=== PATIENT | female | born 1985 | race Hispanic/Latino ===

== ENCOUNTER 2017-07-27 07:51 | Emergency (ER) | payer OTHER ==
[2017-07-27] MEDS ORDERED: KETOROLAC 30 MG/ML INJ ONE (08:35)
[2017-07-27] MEDS ORDERED: CLINDAMYCIN 900MG/D5W 900 MG/50 ML BAG IV ONE (08:35)
[2017-07-27] MEDS ORDERED: DEXAMETHASONE 10 MG/ML VIAL ONE (08:35)
[2017-07-27] MEDS ORDERED: ACETAMINOPHEN 500 MG TAB ONE (08:35)
[2017-07-27] MEDS ORDERED: NA CHLORIDE 0.9% 1,000 ML ONE (08:36)
--- NOTE | 2017-07-27 09:48 | EDPHYS ---
Physician Documentation [facility] Name: Mary Napier Age: 32 yrs Sex: Female : 1985 Arrival Date: 07/27/2017 Time: 07:53 Bed 15 Private MD: ED Physician Daryl Young HPI: 07/27 08:35 This 32 yrs old Female presents to ER via Ambulatory with complaints of Fever, wa Headache, Sore Throat. 08:35 The patient reports fever, not measured (subjective). Onset: The symptoms/episode wa began/occurred 3 day(s) ago. Modifying factors: there are no obvious modifying factors. Associated signs and symptoms: Pertinent positives: headache, sore throat, Pertinent negatives: abdominal pain, backache, runny nose, sinus congestion, shortness of breath. 08:36 Severity of symptoms: At their worst the symptoms were moderate in the emergency wa department the symptoms are worse markedly. The patient has not experienced similar symptoms in the past. The patient has not recently seen a physician. 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 - Social history:: The patient lives with family, Smoking status: Patient/guardian denies using tobacco. - Family history:: not pertinent. - Hospitalizations: : No recent hospitalization is reported. ROS: 08:37 Eyes: Negative for injury, pain, redness, and discharge, Neck: Negative for injury, wa pain, and swelling, Cardiovascular: Negative for chest pain, palpitations, and edema, Respiratory: Negative for shortness of breath, cough, wheezing, and pleuritic chest pain, Abdomen/GI: Negative for abdominal pain, nausea, vomiting, diarrhea, and constipation, Back: Negative for injury and pain, : Negative for injury, bleeding, discharge, and swelling, MS/Extremity: Negative for injury and deformity, Skin: Negative for injury, rash, and discoloration. 08:37 Constitutional: Positive for body aches, fever, Negative for weight loss. 08:37 ENT: Positive for sore throat, Negative for nasal discharge, sinus congestion. 08:37 Neuro: Positive for headache, Negative for altered mental status, dizziness, gait disturbance. 08:37 All other systems are negative. Exam: 08:37 Head/Face: Normocephalic, atraumatic. Eyes: Pupils equal round and reactive to light, wa extra-ocular motions intact. Lids and lashes normal. Conjunctiva and sclera are non-icteric and not injected. Cornea within normal limits. Periorbital areas with no swelling, redness, or edema. Neck: Trachea midline, no thyromegaly or masses palpated, and no cervical lymphadenopathy. Supple, full range of motion without nuchal rigidity, or vertebral point tenderness. No Meningismus. Chest/axilla: Normal chest wall appearance and motion. Nontender with no deformity. No lesions are appreciated. Cardiovascular: Regular rate and rhythm with a normal S1 and S2. No gallops, murmurs, or rubs. Normal PMI, no JVD. No pulse deficits. Respiratory: Lungs have equal breath sounds bilaterally, clear to auscultation and percussion. No rales, rhonchi or wheezes noted. No increased work of breathing, no retractions or nasal flaring. Abdomen/GI: Soft, non-tender, with normal bowel sounds. No distension or tympany. No guarding or rebound. No evidence of tenderness throughout. Back: No spinal tenderness. No costovertebral tenderness. Full range of motion. Skin: Warm, dry with normal turgor. Normal color with no rashes, no lesions, and no evidence of cellulitis. MS/ Extremity: Pulses equal, no cyanosis. Neurovascular intact. Full, normal range of motion. 08:37 ENT: Posterior pharynx: swelling, erythema, exudate, that is moderate. 08:37 Neuro: Orientation: is normal, Cranial nerves: grossly normal, Motor: is normal, Gait: is steady. Vital Signs: 08:21 BP 129 / 81; Pulse 110; Resp 18 S; Temp 100.7(O); Pulse Ox 99% on R/A; Pain 10/10; iw 09:59 Pulse 96; Resp 18; Temp 99.9(O); Pulse Ox 99% on R/A; em MDM: 08:10 Patient medically screened. wa 08:42 Differential diagnosis: viral Infection, bacterial infection. Data reviewed: vital wa signs, nurses notes. 08:42 Special discussion: will check labs, treat pain and give IV decadron and abx. co 09:45 Test interpretation: by ED physician or midlevel provider:. wa 09:46 Response to treatment: the patient's symptoms have markedly improved after treatment. co 07/27 08:21 Order name: Flu; Complete Time: 09:23 co 07/27 08:21 Order name: Strep; Complete Time: 09:23 co 07/27 09:14 Order name: Throat Culture EDIL 07/27 10:01 Order name: Urine Microscopic Only em 07/27 10:12 Order name: Urine Dipstick--Ancillary (enter results) ag 07/27 10:12 Order name: Urine --Ancillary (enter results) ag 07/27 08:21 Order name: IV Saline Lock; Complete Time: 09:08 co 07/27 08:21 Order name: Urine Dipstick-Ancillary (obtain specimen); Complete Time: 10:00 co 07/27 08:21 Order name: Urine Test (obtain specimen); Complete Time: 10:00 co Administered Medications: 08:53 Drug: Decadron - Dexamethasone 10 mg Route: IVP; Site: right antecubital; iw 09:21 Follow up: Response: No adverse reaction em 08:53 Drug: TORadol 30 mg Route: IVP; Site: right antecubital; iw 10:00 Follow up: Response: No adverse reaction em 09:08 Drug: Clindamycin 900 mg Route: IVPB; Infused Over: 30 mins; Site: right antecubital; em 09:46 Follow up: IV Status: Completed infusion; IV Intake: 100ml em 09:09 Drug: NS 0.9% 1000 ml Route: IV; Rate: 1 bolus; Site: right antecubital; em 10:00 Follow up: IV Status: Completed infusion; IV Intake: 1000ml em 09:09 Drug: Tylenol 1000 mg Route: PO; em 10:00 Follow up: Response: No adverse reaction; Temperature is decreased em Disposition: 07/27/17 09:48 Discharged to Home. Impression: Acute Pharygitis, Acute Tonsillitis. - Condition is Stable. - Discharge Instructions: Tonsillitis, Pharyngitis, [id number]. - Prescriptions for Augmentin 875- 125 mg Oral Tablet - take 1 tablet by ORAL route every 12 hours for 7 days; 20 tablet. Ibuprofen 600 mg Oral Tablet - take 1 tablet by ORAL route every 8 hours As needed take with food; 30 tablet. Prednisone 20 mg Oral Tablet - take 2 tablets by ORAL route once daily for 4 days; 8 tablet. - Medication Reconciliation Form, Thank You Letter, Antibiotic Education, Prescription Opioid Use form. - Follow up: Private Physician; When: 2 - 3 days; Reason: Recheck today's complaints. - Problem is new. - Symptoms have improved. - Notes: taek medicines as prescribed. return here or see your doctor immediately for rapidly worsening pain and or difficulty swallowing and or breathing Signatures: Dispatcher [employer] EDTravis Roche LVN LVN em Williams, Irene, RN RN iw Appiah, William, MD MD wa Corrections: (The following items were deleted from the chart) 10:18 09:48 07/27/2017 09:48 Discharged to Home. Impression: Acute Pharygitis; Acute em Tonsillitis. Condition is Stable. Forms are Medication Reconciliation Form, Thank You Letter, Antibiotic Education, Prescription Opioid Use. Follow up: Private Physician; When: 2 - 3 days; Reason: Recheck today's complaints. Problem is new. Symptoms have improved. wa
--- NOTE | 2017-07-27 09:48 | ER ---
Nurse's Notes [facility] Name: Mary Napier Age: 32 yrs Sex: Female : 1985 Arrival Date: 07/27/2017 Time: 07:53 Bed 15 Private MD: Diagnosis: Acute Pharygitis;Acute Tonsillitis Presentation: 07/27 08:17 Presenting complaint: Patient states: pt c/o of sore throat, headache,fever, chills, iw states throat feels like it's closing up. Transition of care: patient was not received from another setting of care. Onset of symptoms was July 27, 2017. 08:17 Method Of Arrival: Ambulatory iw 08:20 Initial Sepsis Screen: Does the patient meet any 2 criteria? No. Patient's initial iw sepsis screen is negative. Does the patient have a suspected source of infection? No. Patient's initial sepsis screen is negative. Care prior to arrival: None. 08:20 Acuity: SOFIA 3 iw Triage Assessment: 10:12 General: Appears in no apparent distress. uncomfortable. General: Behavior is em cooperative. Pain: Pain currently is 10 out of 10 on a pain scale. Pain began 2-3 days ago. Pain: Also complains of no other associated symptoms. 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 - Social history:: The patient lives with family, Smoking status: Patient/guardian denies using tobacco. - Family history:: not pertinent. - Hospitalizations: : No recent hospitalization is reported. Screenin:21 Abuse screen: Denies threats or abuse. Denies injuries from another. Nutritional iw screening: No deficits noted. Tuberculosis screening: No symptoms or risk factors identified. 08:30 Fall Risk None identified. em Assessment: 08:10 General: Appears in no apparent distress. uncomfortable, Behavior is cooperative, em Reports sore throat and fever for 2 days, denies N/V/D. Pain: Complains of pain in throat. Neuro: Level of Consciousness is awake, alert, obeys commands, Oriented to person, place, time, situation. Cardiovascular: Capillary refill < 3 seconds Patient's skin is warm and dry. Respiratory: Airway is patent Respiratory effort is even, unlabored, Respiratory pattern is regular, symmetrical, Breath sounds are clear bilaterally. GI: Abdomen is round. : No signs and/or symptoms were reported regarding the genitourinary system. Denies burning with urination. EENT: Oral mucosa is moist. Throat is clear is reddened. Derm: Skin is intact, Skin is pink, warm \T\ dry. Musculoskeletal: Range of motion: intact in all extremities. Vital Signs: 08:21 BP 129 / 81; Pulse 110; Resp 18 S; Temp 100.7(O); Pulse Ox 99% on R/A; Pain 10/10; iw 09:59 Pulse 96; Resp 18; Temp 99.9(O); Pulse Ox 99% on R/A; em ED Course: 07:53 Patient arrived in ED. rg4 08:10 Daryl Young MD is Attending Physician. wa 08:17 Julianna Peterson RN is Primary Nurse. iw 08:21 Triage completed. iw 08:21 Patient has correct armband on for positive identification. iw 08:30 Arm band placed on. em 09:00 Initial lab(s) drawn, by me, sent to lab. Inserted saline lock: 20 gauge in right em antecubital area, using aseptic technique. Blood collected. 10:13 No provider procedures requiring assistance completed. em 10:17 IV discontinued, intact, bleeding controlled, No redness/swelling at site. Pressure em dressing applied. Administered Medications: 08:53 Drug: Decadron - Dexamethasone 10 mg Route: IVP; Site: right antecubital; iw 09:21 Follow up: Response: No adverse reaction em 08:53 Drug: TORadol 30 mg Route: IVP; Site: right antecubital; iw 10:00 Follow up: Response: No adverse reaction em 09:08 Drug: Clindamycin 900 mg Route: IVPB; Infused Over: 30 mins; Site: right antecubital; em 09:46 Follow up: IV Status: Completed infusion; IV Intake: 100ml em 09: Drug: NS 0.9% 1000 ml Route: IV; Rate: 1 bolus; Site: right antecubital; em 10:00 Follow up: IV Status: Completed infusion; IV Intake: 1000ml em 09:09 Drug: Tylenol 1000 mg Route: PO; em 10:00 Follow up: Response: No adverse reaction; Temperature is decreased em Intake: 09:46 IV: 100ml; Total: 100ml. em 10:00 IV: 1000ml; Total: 1100ml. em Outcome: 09:48 Discharge ordered by . wa 10:17 Discharged to home ambulatory. em 10:17 Condition: good 10:17 Discharge instructions given to patient, Instructed on discharge instructions, follow up and referral plans. medication usage, Demonstrated understanding of instructions, follow-up care, medications, Prescriptions given X 3. 10:18 Patient left the ED. em Signatures: Travis Quintana, DEBBIE SLIP COVER OPERATOR em Julianna Peterson, Zoila Charles RN rg4 Daryl Young MD MD wa
[2017-07-27 10:40] LABS: Urine Blood TRACE (NEG); Urine Glucose NEGATIVE (NEG); Urine Protein NEGATIVE (NEG); Urine Specific Gravity <1.005 (1.005-1.030); Urine pH 5.5 (5.0-7.0)
[2017-07-27 10:54] LABS: Urine Bacteria >50 /HPF (<20); Urine Culture Reflex Order NOT NEEDED; Urine RBC <5 /HPF (NONE SEEN)
== END 2017-07-27 10:18 | disposition home or self-care (01) ==
LOC: ER 07:51
DX: J03.90 Acute tonsillitis, unspecified (principal); R51 Headache
CPT/HCPCS: 81003; 81015; 81025; 87070; 87081; 87804; 96361; 96365; 96375; 99284; J1100; J7030

== ENCOUNTER 2017-08-04 13:05 | Emergency (ER) | payer OTHER ==
[2017-08-04] MEDS ORDERED: METHYLPREDNISOLONE 125 MG INJ ONE (13:38)
[2017-08-04] MEDS ORDERED: FAMOTIDINE 20 MG/2 ML VIAL IV ONE (13:39)
[2017-08-04] MEDS ORDERED: DIPHENHYDRAMINE 50 MG/ML VIAL ONE (13:39)
[2017-08-04] MEDS ORDERED: NA CHLORIDE 0.9% 1,000 ML ONE (13:39)
[2017-08-04 14:48] LABS: BUN Blood Urea Nitrogen 6 mg/dL (6-20); Glucose Level 115 mg/dL (65-120)
[2017-08-04 14:53] LABS: Bicarbonate 26 mEq/L (21-31); Sodium Level 137 mEq/L (135-145)
[2017-08-04 15:00] LABS: Potassium 2.9 mEq/L (3.6-5.0)
--- NOTE | 2017-08-04 15:16 | EDPHYS ---
Physician Documentation [facility] Name: Mary Napier Age: 32 yrs Sex: Female : 1985 Arrival Date: 08/04/2017 Time: 13:07 Bed 28 Private MD: None, None ED Physician Suman Hightower HPI: 08/04 13:34 This 32 yrs old Female presents to ER via Ambulatory with complaints of kb Allergic Reaction. 13:34 The patient presents with itching, rash, that is diffuse, swollen ears. Onset: The kb symptoms/episode began/occurred this morning. Associated signs and symptoms: Pertinent positives: rash, swelling, Pertinent negatives: abdominal pain, Altered mental status chest pain, dysphagia, fever, headache, hives, Light headed nausea, shortness of breath, Syncope vomiting. Possible causes: The patient has no known obvious cause for the symptoms. At home the patient or guardian has treated the symptoms with nothing. Severity of symptoms: At their worst the symptoms were moderate in the emergency department the symptoms are unchanged. The patient has not experienced similar symptoms in the past. The patient has not recently seen a physician. Pt states she woke up with diffuse itching and rash with swelling and redness to ears. States she was on amoxicillin and prednisone for tonsillitis last week. Last dose of amoxicillin was 2 days ago. Has had diarrhea as well since starting the medication. States she hasn't had anything new that would cause the reaction. . 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 - Social history:: Smoking status: Patient/guardian denies using tobacco. ROS: 13:34 Constitutional: Negative for fever, chills, and weight loss, Cardiovascular: Negative kb for chest pain, palpitations, and edema, Respiratory: Negative for shortness of breath, cough, wheezing, and pleuritic chest pain, Abdomen/GI: Negative for abdominal pain, nausea, vomiting, diarrhea, and constipation, Back: Negative for injury and pain, : Negative for injury, bleeding, discharge, and swelling, MS/Extremity: Negative for injury and deformity, Neuro: Negative for headache, weakness, numbness, tingling, and seizure. 13:34 Skin: Positive for rash, diffusely. Exam: 13:34 Constitutional: This is a well developed, well nourished patient who is awake, alert, kb and in no acute distress. Head/Face: Normocephalic, atraumatic. Chest/axilla: Normal chest wall appearance and motion. Nontender with no deformity. No lesions are appreciated. Cardiovascular: Regular rate and rhythm with a normal S1 and S2. No gallops, murmurs, or rubs. Normal PMI, no JVD. No pulse deficits. Respiratory: Lungs have equal breath sounds bilaterally, clear to auscultation and percussion. No rales, rhonchi or wheezes noted. No increased work of breathing, no retractions or nasal flaring. Abdomen/GI: Soft, non-tender, with normal bowel sounds. No distension or tympany. No guarding or rebound. No evidence of tenderness throughout. MS/ Extremity: Pulses equal, no cyanosis. Neurovascular intact. Full, normal range of motion. Neuro: Awake and alert, GCS 15, oriented to person, place, time, and situation. Cranial nerves II-XII grossly intact. Motor strength 5/5 in all extremities. Sensory grossly intact. Cerebellar exam normal. Normal gait. 13:34 Skin: Appearance: normal except for affected area, Color: erythematous, swelling, noted on the right ear and left ear, that are mild, rash can be described as macular, papular, and is diffusely located. Vital Signs: 13:12 BP 137 / 86; Pulse 101; Resp 20; Temp 97.7; Pulse Ox 100% on R/A; Weight 91.63 kg; aj Height 5 ft. 4 in. (162.56 cm); 14:10 BP 122 / 75; Pulse 85; Resp 16; Pulse Ox 100% on R/A; kr2 15:25 BP 128 / 76; Pulse 84; Resp 17; Pulse Ox 100% on R/A; kr2 13:12 Body Mass Index 34.67 (91.63 kg, 162.56 cm) aj MDM: 13:14 Patient medically screened. kb 13:38 Data reviewed: vital signs, nurses notes. Data interpreted: Pulse oximetry: on room air kb is 100 %. Interpretation: normal. 15:14 Counseling: I had a detailed discussion with the patient and/or guardian regarding: the kb historical points, exam findings, and any diagnostic results supporting the discharge/admit diagnosis, lab results, the need for outpatient follow up, a family practitioner, to return to the emergency department if symptoms worsen or persist or if there are any questions or concerns that arise at home. 08/04 13:34 Order name: [place] Screen Profile; Complete Time: 14:39 kb 08/04 13:34 Order name: Basic Metabolic Panel; Complete Time: 15:02 kb 08/04 13:34 Order name: IV Start; Complete Time: 14:09 kb Administered Medications: 14:08 Drug: NS 0.9% 1000 ml Route: IV; Rate: 1000 ml; Site: right hand; kr2 15:32 Follow up: Response: No adverse reaction; IV Status: Completed infusion kr2 14:08 Drug: SOLU-Medrol 125 mg Route: IVP; Site: right hand; kr2 15:07 Follow up: Response: No adverse reaction kr2 14:08 Drug: Pepcid 20 mg Route: IVP; Site: right hand; kr2 15:07 Follow up: Response: No adverse reaction kr2 14:08 Drug: Benadryl 12.5 mg Route: IVP; Site: right hand; kr2 15:07 Follow up: Response: No adverse reaction kr2 15:19 Drug: Potassium Effervescent Tablet 50 mEq Route: PO; kr2 15:32 Follow up: Response: No adverse reaction kr2 Disposition: 08/04/17 15:15 Discharged to Home. Impression: Rash and other nonspecific skin eruption, Hypokalemia, Diarrhea, unspecified. - Condition is Stable. - Discharge Instructions: Food Choices to Help Relieve Diarrhea, Adult, Diarrhea, Vkof-lw-Ntyu, Rash, Rhbv-ca-Tamr. - Prescriptions for Pepcid 20 mg Oral Tablet - take 1 tablet by ORAL route every 12 hours for 5 days; 10 tablet. Prednisone 20 mg Oral Tablet - take 1 tablet by ORAL route once daily for 5 days; 5 tablet. - Medication Reconciliation Form, Thank You Letter, Antibiotic Education, Prescription Opioid Use form. - Follow up: Emergency Department; When: As needed; Reason: Worsening of condition. Follow up: Private Physician; When: 2 - 3 days; Reason: Recheck today's complaints, Continuance of care, Re-evaluation by your physician. Addendum: 08/07/2017 08:48 Co-signature as Attending Physician, Suman Hightower MD I agree with the assessment and c scott plan of care. Signatures: Dispatcher [employer] EDMS Tenisha Reddy, CHIEF LENDING OFFICER-C CHIEF LENDING OFFICER-Samantha Rea, RN RN Suman Baca MD MD cha Reaves, Karey, RN RN kr2 Corrections: (The following items were deleted from the chart) 08/04 15:15 15:15 08/04/2017 15:15 Discharged to Home. Impression: Rash and other nonspecific skin kb eruption; Hypokalemia. Condition is Stable. Forms are Medication Reconciliation Form, Thank You Letter, Antibiotic Education, Prescription Opioid Use. Follow up: Emergency Department; When: As needed; Reason: Worsening of condition. Follow up: Private Physician; When: 2 - 3 days; Reason: Recheck today's complaints, Continuance of care, Re-evaluation by your physician. kb 15:34 15:15 08/04/2017 15:15 Discharged to Home. Impression: Rash and other nonspecific skin kr2 eruption; Hypokalemia; Diarrhea, unspecified. Condition is Stable. Forms are Medication Reconciliation Form, Thank You Letter, Antibiotic Education, Prescription Opioid Use. Follow up: Emergency Department; When: As needed; Reason: Worsening of condition. Follow up: Private Physician; When: 2 - 3 days; Reason: Recheck today's complaints, Continuance of care, Re-evaluation by your physician. kb
--- NOTE | 2017-08-04 15:16 | ER ---
Nurse's Notes [facility] Name: Mary Napier Age: 32 yrs Sex: Female : 1985 Arrival Date: 08/04/2017 Time: 13:07 Bed 28 Private MD: None, None Diagnosis: Rash and other nonspecific skin eruption;Hypokalemia;Diarrhea, unspecified Presentation: 08/04 13:10 Presenting complaint: Patient states: Woke up this AM with systemic rash. Patient aj completed ABX for tonsillitis 2 days ago. Patient also reports swelling to ears. Transition of care: patient was not received from another setting of care. Onset: The symptoms/episode began/occurred acutely. Anaphylaxis evaluation, no signs or symptoms of anaphylaxis were noted. Onset of symptoms was August 04, 2017. Initial Sepsis Screen: Does the patient meet any 2 criteria? No. Patient's initial sepsis screen is negative. Does the patient have a suspected source of infection? No. Patient's initial sepsis screen is negative. Care prior to arrival: None. 13:10 Method Of Arrival: Ambulatory 13:10 Acuity: SOFIA 2 Triage Assessment: 13:12 General: Appears in no apparent distress. comfortable, Behavior is calm, cooperative, aj appropriate for age. Pain: Denies pain. Neuro: Level of Consciousness is awake, alert, obeys commands, Oriented to person, place, time, situation, Appropriate for age. Respiratory: Airway is patent Respiratory effort is even, unlabored, Respiratory pattern is regular, symmetrical. Derm: Skin is intact, is healthy with good turgor, Skin is pink, warm \T\ dry. normal, Rash noted that is itchy, red, on face, right ear, left ear, chest, right arm, left arm, right leg and left leg. 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 - Social history:: Smoking status: Patient/guardian denies using tobacco. Screenin:30 Abuse screen: Denies threats or abuse. Denies injuries from another. Nutritional kr2 screening: No deficits noted. Tuberculosis screening: No symptoms or risk factors identified. Fall Risk None identified. Assessment: 13:31 General: Appears in no apparent distress. uncomfortable, well groomed, well developed, kr2 well nourished, Behavior is calm, cooperative, appropriate for age. Pain: Complains of pain in ears Pain does not radiate. Pain currently is 5 out of 10 on a pain scale. Quality of pain is described as tender, Pain began suddenly, Is continuous, Alleviated by nothing. Aggravated by touch. Neuro: Level of Consciousness is awake, alert, obeys commands, Oriented to person, place, time, situation, Appropriate for age. Cardiovascular: Heart tones S1 S2 Capillary refill < 3 seconds in bilateral fingers Patient's skin is warm and dry. Respiratory: Airway is patent Respiratory effort is even, unlabored, Respiratory pattern is regular, symmetrical, Breath sounds are clear bilaterally. Denies shortness of breath. GI: Abdomen is flat, non-distended. : No signs and/or symptoms were reported regarding the genitourinary system. EENT: Nares are clear bilaterally Oral mucosa is moist. Throat is clear. Derm: Skin is intact, is healthy with good turgor, Rash noted that is itchy, red, raised. Musculoskeletal: Circulation, motion, and sensation intact. Range of motion: intact in all extremities. 14:30 Reassessment: Patient appears in no apparent distress at this time. Patient and/or kr2 family updated on plan of care and expected duration. Pain level reassessed. Patient is alert, oriented x 3, equal unlabored respirations, skin warm/dry/pink. Patient denies pain at this time. 15:32 Reassessment: Patient appears in no apparent distress at this time. Patient and/or kr2 family updated on plan of care and expected duration. Pain level reassessed. Patient is alert, oriented x 3, equal unlabored respirations, skin warm/dry/pink. States itching has decreased. Rash remains Patient denies pain at this time. Vital Signs: 13:12 BP 137 / 86; Pulse 101; Resp 20; Temp 97.7; Pulse Ox 100% on R/A; Weight 91.63 kg; aj Height 5 ft. 4 in. (162.56 cm); 14:10 BP 122 / 75; Pulse 85; Resp 16; Pulse Ox 100% on R/A; kr2 15:25 BP 128 / 76; Pulse 84; Resp 17; Pulse Ox 100% on R/A; kr2 13:12 Body Mass Index 34.67 (91.63 kg, 162.56 cm) aj ED Course: 13:07 Patient arrived in ED. mr 13:07 None, None is Private Physician. mr 13:12 Triage completed. aj 13:12 Arm band placed on left wrist. Patient placed in an exam room. aj 13:14 Tenisha Reddy FNP-C is [facility]. kb 13:14 Suman Hightower MD is Attending Physician. kb 13:25 Torri Steele RN is Primary Nurse. kr2 13:30 Patient has correct armband on for positive identification. Placed in gown. Bed in low kr2 position. Call light in reach. Side rails up X 1. Pulse ox on. NIBP on. Door closed. Warm blanket given. Head of bed Elevated. 14:00 Missed attempt(s): 24 gauge in right forearm. Bleeding controlled, band aid applied, kr2 catheter tip intact. 14:02 Missed attempt(s): 24 gauge in left antecubital area. kr2 14:05 Inserted saline lock: 24 gauge in right hand, using aseptic technique. Blood collected. kr2 15:33 No provider procedures requiring assistance completed. IV discontinued, intact, kr2 bleeding controlled, No redness/swelling at site. Pressure dressing applied. Administered Medications: 14:08 Drug: NS 0.9% 1000 ml Route: IV; Rate: 1000 ml; Site: right hand; kr2 15:32 Follow up: Response: No adverse reaction; IV Status: Completed infusion kr2 14:08 Drug: SOLU-Medrol 125 mg Route: IVP; Site: right hand; kr2 15:07 Follow up: Response: No adverse reaction kr2 14:08 Drug: Pepcid 20 mg Route: IVP; Site: right hand; kr2 15:07 Follow up: Response: No adverse reaction kr2 14:08 Drug: Benadryl 12.5 mg Route: IVP; Site: right hand; kr2 15:07 Follow up: Response: No adverse reaction kr2 15:19 Drug: Potassium Effervescent Tablet 50 mEq Route: PO; kr2 15:32 Follow up: Response: No adverse reaction kr2 Outcome: 15:15 Discharge ordered by . kb 15:33 Discharged to home ambulatory. kr2 15:33 Condition: improved 15:33 Discharge instructions given to patient, Instructed on discharge instructions, follow up and referral plans. Demonstrated understanding of instructions, follow-up care, medications, Prescriptions given X 1. 15:34 Patient left the ED. kr2 Signatures: Tenisha Reddy, HAT DESIGNER-C HAT DESIGNER-Samantha Rea RN RN aj Rivera, Maria mr Reaves, Karey, RN RN kr2
[2017-08-04] MEDS ORDERED: POTASSIUM 25 MEQ EFFERV TAB ONE (15:17)
== END 2017-08-04 15:34 | disposition home or self-care (01) ==
LOC: ER 13:05
DX: E87.6 Hypokalemia (principal); R19.7 Diarrhea, unspecified
CPT/HCPCS: 36415; 80048; 86308; 96361; 96374; 96375; 99284; J2930; J7030

== ENCOUNTER 2017-08-06 11:16 | Emergency (ER) | payer OTHER ==
[2017-08-06] MEDS ORDERED: DIPHENHYDRAMINE 50 MG/ML VIAL ONE (11:37)
[2017-08-06] MEDS ORDERED: DEXAMETHASONE 10 MG/ML VIAL ONE (11:37)
[2017-08-06] MEDS ORDERED: NA CHLORIDE 0.9% 1,000 ML ONE (11:38)
[2017-08-06] MEDS ORDERED: EPINEPHRINE/PF 1 MG/ML AMP ONE ×2 (11:39→12:59)
[2017-08-06] MEDS ORDERED: IPRATROPIUM BROM 0.5MG/2.5ML ONE (11:48)
[2017-08-06] MEDS ORDERED: ALBUTEROL 2.5 MG/3 ML NEB SOL ONE (11:48)
[2017-08-06 12:01] LABS: Potassium 3.6 mEq/L (3.6-5.0)
--- NOTE | 2017-08-06 14:38 | ER ---
Nurse's Notes [facility] Name: Mary Napier Age: 32 yrs Sex: Female : 1985 Arrival Date: 08/06/2017 Time: 11:20 Bed 4 Private MD: Diagnosis: Allergy status, other than to drugs and biological substances-unknown cause;Rash and other nonspecific skin eruption Presentation: 08/06 11:23 Presenting complaint: Patient states: I have a really bad rash since Monday and its la1 getting worse, I feel SOB and like I am going to pass out. Something is not right. Transition of care: patient was not received from another setting of care. Onset of symptoms was August 06, 2017. Initial Sepsis Screen: Does the patient meet any 2 criteria? No. Patient's initial sepsis screen is negative. Does the patient have a suspected source of infection? No. Patient's initial sepsis screen is negative. Care prior to arrival: None. 11:23 Method Of Arrival: Ambulatory la1 11:23 Acuity: SOFIA 2 la1 Historical: - Allergies: 11:24 NKA; la1 - PMHx: 11:24 None; la1 - Immunization history:: Adult Immunizations up to date. - Social history:: Smoking status: Patient/guardian denies using tobacco. Screenin:40 Abuse screen: Denies threats or abuse. Denies injuries from another. Nutritional sv screening: No deficits noted. Tuberculosis screening: No symptoms or risk factors identified. Fall Risk None identified. Assessment: 11:40 General: Appears uncomfortable, well developed, Behavior is calm, cooperative, sv appropriate for age, drowsy. Pain: Denies pain. Neuro: Level of Consciousness is obeys commands, lethargic, Oriented to person, place, time, situation. Cardiovascular: Patient's skin is warm and dry. Respiratory: Airway is patent Respiratory effort is even, unlabored, Respiratory pattern is regular, symmetrical. Derm: Skin is normal, Rash noted that is itchy, red, raised, urticaria, on back, chest, abdomen, pelvis, right arm, left arm, right leg and left leg. Musculoskeletal: No signs and/or symptoms reported regarding the musculoskeletal system. 12:45 Reassessment: Patient appears in no apparent distress at this time. No changes from sv previously documented assessment. Patient and/or family updated on plan of care and expected duration. Pain level reassessed. Patient is alert, oriented x 3, equal unlabored respirations, skin warm/dry/pink. 13:04 Reassessment: Patient appears in no apparent distress at this time. No changes from sv previously documented assessment. Patient and/or family updated on plan of care and expected duration. Pain level reassessed. Patient is alert, oriented x 3, equal unlabored respirations, skin warm/dry/pink. 13:34 Reassessment: Patient appears in no apparent distress at this time. Patient and/or sv family updated on plan of care and expected duration. Pain level reassessed. Patient is alert, oriented x 3, equal unlabored respirations, skin warm/dry/pink. Pt states that the itchy has improved some. Patient states symptoms have improved. 14:46 Reassessment: Patient appears in no apparent distress at this time. Patient and/or sv family updated on plan of care and expected duration. Pain level reassessed. Patient is alert, oriented x 3, equal unlabored respirations, skin warm/dry/pink. Pt stated that her mother is coming to take her home. Pt to be discharged once she is here. 15:13 Reassessment: Patient appears in no apparent distress at this time. Patient and/or sv family updated on plan of care and expected duration. Pain level reassessed. Patient is alert, oriented x 3, equal unlabored respirations, skin warm/dry/pink. Patient states symptoms have improved. Vital Signs: 11:24 BP 99 / 63; Pulse 81; Resp 16; Temp 97.5; Pulse Ox 100% on R/A; Weight 91.63 kg; Height la1 5 ft. 4 in. (162.56 cm); 12:30 BP 121 / 70; Pulse 85 MON; Resp 16; Temp 98.1(O); Pulse Ox 100% on R/A; sv 13:33 BP 117 / 63; Pulse 92 MON; Resp 16; Pulse Ox 100% on R/A; sv 14:36 BP 108 / 61; Pulse 81; Resp 16; Pulse Ox 99% ; sv 11:24 Body Mass Index 34.67 (91.63 kg, 162.56 cm) la1 12:30 Sinus Rhythm sv 13:33 Sinus Rhythm sv ED Course: 11:20 Patient arrived in ED. sb2 11:24 Triage completed. la1 11:24 Arm band placed on right wrist. la1 11:26 Ten[facility] Red[facility]NP-C [facility]. kb 11:26 Daryl Young MD is Attending Physician. kb 11:38 Inserted saline lock: 22 gauge in left antecubital area, using aseptic technique. Blood iw collected. 11:40 Patient has correct armband on for positive identification. Placed in gown. Bed in low sv position. Call light in reach. Side rails up X2. rn corrections on. Pulse ox on. NIBP on. Door closed. Warm blanket given. Head of bed elevated. 11:51 Virginie Owens, RN is Primary Nurse. sv 15:14 No provider procedures requiring assistance completed. IV discontinued, intact, sv bleeding controlled, No redness/swelling at site. Pressure dressing applied. Administered Medications: 11:45 Drug: NS 0.9% 1000 ml Route: IV; Rate: 1000 ml; Site: left antecubital; sv 13:04 Follow up: Response: No adverse reaction; IV Status: Completed infusion; IV Intake: sv 1000ml 11:45 Drug: EPINEPHrine 1mg/mL 1:1,000 0.3 ml Route: Sub-Q; Site: left upper arm; sv 12:00 Follow up: Response: No adverse reaction sv 11:45 Drug: Benadryl 12.5 mg Route: IVP; Site: left antecubital; sv 12:00 Follow up: Response: No adverse reaction sv 11:47 Drug: Decadron - Dexamethasone 10 mg Route: IVP; Site: left antecubital; sv 12:00 Follow up: Response: No adverse reaction sv 11:51 Drug: Albuterol 2.5 mg Route: Inhalation; sg 11:51 Drug: AtroVENT Aerosol 0.5 mg Route: Inhalation; sg 13:00 Drug: EPINEPHrine 1mg/mL 1:1,000 0.3 ml Route: Sub-Q; Site: right upper arm; sv 13:34 Follow up: Response: No adverse reaction sv Intake: 13:04 IV: 1000ml; Total: 1000ml. sv Outcome: 14:37 Discharge ordered by . kb 15:14 Discharged to home ambulatory, with family, Pt's mother here to drive her home. Mother sv stated that she was driving her. 15:14 Condition: stable 15:14 Discharge instructions given to patient, Instructed on discharge instructions, follow up and referral plans. Demonstrated understanding of instructions, follow-up care. 15:14 Patient left the ED. sv Signatures: Tenisha Reddy, TAJ-C TAJ-Virginie Copeland, RN Arsalan Goodman RN RN sg Williams, Irene, RN RN iw Attema, Lee, RN RN laAlice Cruz
--- NOTE | 2017-08-06 14:38 | EDPHYS ---
Physician Documentation [facility] Name: Mary Napier Age: 32 yrs Sex: Female : 1985 Arrival Date: 08/06/2017 Time: 11:20 Bed 4 Private MD: ED Physician Daryl Young HPI: 08/06 11:45 This 32 yrs old Female presents to ER via Ambulatory with complaints of Rash. kb 11:45 The patient's rash thought to be caused by an unknown cause. The rash is located on the kb body diffusely. The rash can be described as diffuse, macular, papular. Onset: The symptoms/episode began/occurred 2 day(s) ago, and became worse this morning. Associated signs and symptoms: Pertinent positives: itching, Pertinent negatives: burning sensation, difficulty breathing, fever, nausea, Pain swelling of lips, swelling of throat, swelling of tongue, vomiting, wheezing. Severity of symptoms: At their worst the symptoms were moderate in the emergency department the symptoms are unchanged. The patient has not experienced similar symptoms in the past. The patient has been recently seen at the [facility] Emergency Department, for similar complaints labs were performed, 2 days ago. Historical: - Allergies: 11:24 NKA; la1 - PMHx: 11:24 None; la1 - Immunization history:: Adult Immunizations up to date. - Social history:: Smoking status: Patient/guardian denies using tobacco. ROS: 11:48 Constitutional: Negative for fever, chills, and weight loss, Cardiovascular: Negative kb for chest pain, palpitations, and edema, Respiratory: Negative for shortness of breath, cough, wheezing, and pleuritic chest pain, Abdomen/GI: Negative for abdominal pain, nausea, vomiting, diarrhea, and constipation, Back: Negative for injury and pain, : Negative for injury, bleeding, discharge, and swelling, MS/Extremity: Negative for injury and deformity, Neuro: Negative for headache, weakness, numbness, tingling, and seizure. 11:48 Skin: Positive for rash, diffusely. Exam: 11:48 Constitutional: This is a well developed, well nourished patient who is awake, alert, kb and in no acute distress. Head/Face: Normocephalic, atraumatic. Chest/axilla: Normal chest wall appearance and motion. Nontender with no deformity. No lesions are appreciated. Cardiovascular: Regular rate and rhythm with a normal S1 and S2. No gallops, murmurs, or rubs. Normal PMI, no JVD. No pulse deficits. Respiratory: Lungs have equal breath sounds bilaterally, clear to auscultation and percussion. No rales, rhonchi or wheezes noted. No increased work of breathing, no retractions or nasal flaring. Abdomen/GI: Soft, non-tender, with normal bowel sounds. No distension or tympany. No guarding or rebound. No evidence of tenderness throughout. MS/ Extremity: Pulses equal, no cyanosis. Neurovascular intact. Full, normal range of motion. Neuro: Awake and alert, GCS 15, oriented to person, place, time, and situation. Cranial nerves II-XII grossly intact. Motor strength 5/5 in all extremities. Sensory grossly intact. Cerebellar exam normal. Normal gait. 11:48 Skin: rash a moderate rash is noted, rash can be described as macular, papular. Vital Signs: 11:24 BP 99 / 63; Pulse 81; Resp 16; Temp 97.5; Pulse Ox 100% on R/A; Weight 91.63 kg; Height la1 5 ft. 4 in. (162.56 cm); 12:30 BP 121 / 70; Pulse 85 MON; Resp 16; Temp 98.1(O); Pulse Ox 100% on R/A; sv 13:33 BP 117 / 63; Pulse 92 MON; Resp 16; Pulse Ox 100% on R/A; sv 14:36 BP 108 / 61; Pulse 81; Resp 16; Pulse Ox 99% ; sv 11:24 Body Mass Index 34.67 (91.63 kg, 162.56 cm) la1 12:30 Sinus Rhythm sv 13:33 Sinus Rhythm sv MDM: 11:26 Patient medically screened. kb 11:51 Data reviewed: vital signs, nurses notes. Data interpreted: Pulse oximetry: on room air kb is 100 %. Interpretation: normal. 14:33 Counseling: I had a detailed discussion with the patient and/or guardian regarding: the kb historical points, exam findings, and any diagnostic results supporting the discharge/admit diagnosis, lab results, the need for outpatient follow up, an allergy/operator specialist communications, a family practitioner, to return to the emergency department if symptoms worsen or persist or if there are any questions or concerns that arise at home. ED course: Dr Young evaluated pt throughout visit as well. Pt reports itching is better. Rash has not resolved. Discussed plan of care with Dr Young. Will stop previously prescribed medications. Educated pt to take benadryl for symptom treatment only. Verbal understanding received. Educated to follow up with diesel truck driver to determine cause of reaction. Verbal understanding received. . 08/06 11:35 Order name: Basic Metabolic Panel; Complete Time: 12:12 kb Administered Medications: 11:45 Drug: NS 0.9% 1000 ml Route: IV; Rate: 1000 ml; Site: left antecubital; sv 13:04 Follow up: Response: No adverse reaction; IV Status: Completed infusion; IV Intake: sv 1000ml 11:45 Drug: EPINEPHrine 1mg/mL 1:1,000 0.3 ml Route: Sub-Q; Site: left upper arm; sv 12:00 Follow up: Response: No adverse reaction sv 11:45 Drug: Benadryl 12.5 mg Route: IVP; Site: left antecubital; sv 12:00 Follow up: Response: No adverse reaction sv 11:47 Drug: Decadron - Dexamethasone 10 mg Route: IVP; Site: left antecubital; sv 12:00 Follow up: Response: No adverse reaction sv 11:51 Drug: Albuterol 2.5 mg Route: Inhalation; sg 11:51 Drug: AtroVENT Aerosol 0.5 mg Route: Inhalation; sg 13:00 Drug: EPINEPHrine 1mg/mL 1:1,000 0.3 ml Route: Sub-Q; Site: right upper arm; sv 13:34 Follow up: Response: No adverse reaction sv Disposition: 08/06/17 14:37 Discharged to Home. Impression: Allergy status, other than to drugs and biological substances - unknown cause, Rash and other nonspecific skin eruption. - Condition is Stable. - Discharge Instructions: Rash, [id number], Allergies, [id number]. - Medication Reconciliation Form, Thank You Letter, Antibiotic Education, Prescription Opioid Use form. - Follow up: Private Physician; When: 2 - 3 days; Reason: Recheck today's complaints, Continuance of care, Re-evaluation by your physician. Follow up: Emergency Department; When: As needed; Reason: Worsening of condition. - Notes: Stop previously prescribed medications Take Benadryl for symptoms as needed Follow up with [facility] Return for worsening symptoms or other concerns. Addendum: 08/15/2017 05:52 Co-signature as Attending Physician, Daryl Young MD I agree with the assessment and w a plan of care. Signatures: Dispatcher [employer] EDMS Tenisha Reddy, TAJ-C FAMILY ADVOCATE-Virginie Copeland RN RN sv Gay, Steven, RN RN Wilder Morales RN RN la Daryl Young MD MD wa Corrections: (The following items were deleted from the chart) 08/06 15:14 14:37 08/06/2017 14:37 Discharged to Home. Impression: Allergy status, other than to sv drugs and biological substances - unknown cause; Rash and other nonspecific skin eruption. Condition is Stable. Forms are Medication Reconciliation Form, Thank You Letter, Antibiotic Education, Prescription Opioid Use. Follow up: Private Physician; When: 2 - 3 days; Reason: Recheck today's complaints, Continuance of care, Re-evaluation by your physician. Follow up: Emergency Department; When: As needed; Reason: Worsening of condition. kb
== END 2017-08-06 15:14 | disposition home or self-care (01) ==
LOC: ER 11:16
DX: R21 Rash and other nonspecific skin eruption (principal); Z88.8 Allergy status to other drugs, medicaments and biological substances
CPT/HCPCS: 36415; 80048; 96361; 96372; 96374; 96375; 99285; J0171; J1100; J7030

== ENCOUNTER 2017-08-17 14:39 | Emergency (ER) | payer OTHER ==
[2017-08-17] MEDS ORDERED: AMOX TR/K CLAV 400MG CHEW TAB PO ONE (20:21)
[2017-08-17] MEDS ORDERED: CEFTRIAXONE 1000 MG/VIAL ONE (20:21)
[2017-08-17] MEDS ORDERED: LIDOCAINE 1% 20 ML MDV ONE (20:21)
--- NOTE | 2017-08-17 21:33 | EDPHYS ---
Physician Documentation [facility] Name: Mary Napier Age: 32 yrs Sex: Female : 1985 Arrival Date: 08/17/2017 Time: 14:40 Bed 9 Private MD: None, None ED Physician Westley Askew HPI: 08/17 21:30 This 32 yrs old Female presents to ER via Ambulatory with complaints of pm1 Abscess. 21:30 The patient presents with an abscess of the groin. Description: raised. Onset: The pm1 symptoms/episode began/occurred 2 day(s) ago. Possible cause(s): ingrown hair. Patient shaved pubic area prior to onset of abscess. Associated signs and symptoms: Pertinent negatives: discharge, drainage, fever. Modifying factors: the symptoms are alleviated by nothing, the symptoms are aggravated by touching. Severity of symptoms: in the emergency department the symptoms are actually worse. The patient has not experienced similar symptoms in the past. The patient has not recently seen a physician, and does not have an established primary care provider. 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 - Social history:: Smoking status: Patient/guardian denies using tobacco. - Ebola Screening: : No symptoms or risks identified at this time. ROS: 21:30 Constitutional: Negative for fever, chills, and weight loss, Eyes: Negative for injury, pm1 pain, redness, and discharge, ENT: Negative for injury, pain, and discharge, Neck: Negative for injury, pain, and swelling, Cardiovascular: Negative for chest pain, palpitations, and edema, Respiratory: Negative for shortness of breath, cough, wheezing, and pleuritic chest pain, Abdomen/GI: Negative for abdominal pain, nausea, vomiting, diarrhea, and constipation, Back: Negative for injury and pain, : Negative for injury, bleeding, discharge, and swelling, MS/Extremity: Negative for injury and deformity. 21:30 Neuro: Negative for headache, weakness, numbness, tingling, and seizure. 21:30 Skin: Positive for abscess, of the groin. Exam: 21:30 Constitutional: This is a well developed, well nourished patient who is awake, alert, pm1 and in no acute distress. Head/Face: Normocephalic, atraumatic. Chest/axilla: Normal chest wall appearance and motion. Nontender with no deformity. No lesions are appreciated. Cardiovascular: Regular rate and rhythm with a normal S1 and S2. No gallops, murmurs, or rubs. Normal PMI, no JVD. No pulse deficits. Respiratory: Lungs have equal breath sounds bilaterally, clear to auscultation and percussion. No rales, rhonchi or wheezes noted. No increased work of breathing, no retractions or nasal flaring. Abdomen/GI: Soft, non-tender, with normal bowel sounds. No distension or tympany. No guarding or rebound. No evidence of tenderness throughout. Back: No spinal tenderness. No costovertebral tenderness. Full range of motion. 21:30 Skin: Appearance: abscess, that is small, approximately 2 cm(s), of the groin, with fluctuance, No drainage, or surrounding cellulitis. Vital Signs: 14:49 BP 130 / 84; Pulse 110; Resp 20; Temp 97.9; Pulse Ox 99% on R/A; Weight 93.44 kg; aj Height 5 ft. 4 in. (162.56 cm); 19:31 BP 128 / 68; Pulse 96; Resp 18; Pulse Ox 100% on R/A; Pain 10/10; mt 21:49 BP 127 / 71; Pulse 102; Resp 20; Pulse Ox 100% on R/A; mt 14:49 Body Mass Index 35.36 (93.44 kg, 162.56 cm) Procedures: 21:31 I \T\ D: Incision and drainage was performed for an abscess of the groin Prepped with pm1 Betadine, Anesthetized with 5 ml's 1% Lidocaine. Incised with #11 blade. Drained small amount purulent fluid. Abscess cavity explored. Packed with iodoform gauze, Dressing: sterile 4x4 gauze, non-Adherent dressing, the patient tolerated the procedure well. MDM: 19:33 Patient medically screened. pm1 21:31 Data reviewed: vital signs. Data interpreted: Pulse oximetry: on room air is 100 %. pm1 Interpretation: normal. Counseling: I had a detailed discussion with the patient and/or guardian regarding: the historical points, exam findings, and any diagnostic results supporting the discharge/admit diagnosis, the need for outpatient follow up, to return to the emergency department if symptoms worsen or persist or if there are any questions or concerns that arise at home. 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 Exp: bb 11/24/2019. Lot #: [id number]. } Route: IM; Site: right deltoid; 22:28 Follow up: Response: No adverse reaction bb 22:11 Drug: Ibuprofen 600 mg Route: PO; bb 22:28 Follow up: Response: No adverse reaction bb Disposition: 08/18 04:04 Co-signature as Attending Physician, Westley Askew MD. gs Disposition: 08/17/17 21:32 Discharged to Home. Impression: Cutaneous abscess of groin. - Condition is Stable. - Discharge Instructions: Abscess, Incision and Drainage. - Prescriptions for Tylenol- Codeine #3 300-30 mg Oral Tablet - take 2 tablets by ORAL route every 6 hours As needed; 20 tablet. Bactrim DS 800- 160 mg Oral Tablet - take 1 tablet by ORAL route every 12 hours for 10 days; 20 tablet. - Work release form, Medication Reconciliation Form, Thank You Letter, Antibiotic Education form. - Follow up: Emergency Department; When: As needed; Reason: Worsening of condition. Follow up: Private Physician; When: 2 - 3 days; Reason: Recheck today's complaints, Continuance of care, Re-evaluation by your physician. - Problem is new. - Symptoms have improved. Signatures: Samantha Ozuna RN RN Charisma Wolff RN RN bb Alvin Ledezma, ASSISTANT BANQUET MANAGER ASSISTANT BANQUET MANAGER pm1 Westley Askew MD MD gs Corrections: (The following items were deleted from the chart) 08/17 22:31 21:32 08/17/2017 21:32 Discharged to Home. Impression: Cutaneous abscess of groin. bb Condition is Stable. Forms are Medication Reconciliation Form, Thank You Letter, Antibiotic Education, Prescription Opioid Use. Follow up: Emergency Department; When: As needed; Reason: Worsening of condition. Follow up: Private Physician; When: 2 - 3 days; Reason: Recheck today's complaints, Continuance of care, Re-evaluation by your physician. Problem is new. Symptoms have improved. pm1
--- NOTE | 2017-08-17 21:33 | ER ---
Nurse's Notes [facility] Name: Mary Napier Age: 32 yrs Sex: Female : 1985 Arrival Date: 08/17/2017 Time: 14:40 Bed 9 Private MD: None, None Diagnosis: Cutaneous abscess of groin Presentation: 08/17 14:47 Presenting complaint: Patient states: Boil to upper pubic area for 2 days. Transition aj of care: patient was not received from another setting of care. Onset of symptoms was August 15, 2017. Care prior to arrival: None. 14:47 Method Of Arrival: Ambulatory aj 14:47 Acuity: SOFIA 4 aj 20:00 Risk Assessment: Do you want to hurt yourself or someone else? Patient reports no bb desire to harm self or others. Initial Sepsis Screen: Does the patient meet any 2 criteria? No. Patient's initial sepsis screen is negative. Does the patient have a suspected source of infection? No. Patient's initial sepsis screen is negative. Triage Assessment: 14:49 General: Appears in no apparent distress. comfortable, Behavior is calm, cooperative, aj appropriate for age. Pain: Complains of pain in pelvis. Neuro: Level of Consciousness is awake, alert, obeys commands, Oriented to person, place, time, situation, Appropriate for age. Respiratory: Airway is patent Respiratory effort is even, unlabored, Respiratory pattern is regular, symmetrical. Derm: Skin is intact, is healthy with good turgor, Skin is pink, warm \T\ dry. normal, Abscess located on pelvis. 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 - Social history:: Smoking status: Patient/guardian denies using tobacco. - Ebola Screening: : No symptoms or risks identified at this time. Screenin:00 Abuse screen: Denies threats or abuse. Nutritional screening: No deficits noted. bb Tuberculosis screening: No symptoms or risk factors identified. Fall Risk None identified. Assessment: 19:09 Reassessment: see triage. aj 20:00 Reassessment: Patient is alert, oriented x 3, equal unlabored respirations, skin bb warm/dry/pink. Derm: Abscess located on pelvis is golf ball sized, is red, is raised. 22:29 Reassessment: Patient and/or family updated on plan of care and expected duration. Pain bb level reassessed. Patient is alert, oriented x 3, equal unlabored respirations, skin warm/dry/pink. packing in place, wound covered with 4x4s and tape, pt verbalized understanding of and agrees to plan of care discharge instructions given pt ambulated with steady gait to exit accompanied by family. Vital Signs: 14:49 BP 130 / 84; Pulse 110; Resp 20; Temp 97.9; Pulse Ox 99% on R/A; Weight 93.44 kg; aj Height 5 ft. 4 in. (162.56 cm); 19:31 BP 128 / 68; Pulse 96; Resp 18; Pulse Ox 100% on R/A; Pain 10/10; mt 21:49 BP 127 / 71; Pulse 102; Resp 20; Pulse Ox 100% on R/A; mt 14:49 Body Mass Index 35.36 (93.44 kg, 162.56 cm) aj ED Course: 14:40 Patient arrived in ED. mr 14:40 None, None is Private Physician. mr 14:47 Triage completed. aj 14:49 Arm band placed on left wrist. Patient placed in waiting room, Patient notified of wait aj time. 19:15 X-ray completed. Portable x-ray completed in exam room. Patient tolerated procedure kc2 well. 19:33 Alvin Ledezma NP is PHCP. pm1 19:33 Westley Askew MD is Attending Physician. pm1 20:00 Patient has correct armband on for positive identification. Call light in reach. bb 20:00 Patient did not have IV access during this emergency room visit. bb 20:17 Charisma Crawford, KOFI is Primary Nurse. bb 21:40 Assist provider with I \T\ D: of an abscess on pelvis Set up I\T\D tray. Performed by renetta Ledezma NP Wound packed. iodoform gauze, Dressing with 4X4s, tape Patient tolerated poorly. 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 Exp: bb 11/24/2019. Lot #: [id number]. } Route: IM; Site: right deltoid; 22:28 Follow up: Response: No adverse reaction bb 22:11 Drug: Ibuprofen 600 mg Route: PO; bb 22:28 Follow up: Response: No adverse reaction bb Outcome: 21:32 Discharge ordered by . pm1 22:30 Discharged to home ambulatory, with family. bb 22:30 Condition: stable 22:30 Discharge instructions given to patient, Instructed on discharge instructions, follow up and referral plans. medication usage, wound care, Demonstrated understanding of instructions, follow-up care, medications, wound care, Prescriptions given X 2. 22:31 Patient left the ED. bb Signatures: Samantha Ozuna, RN Sarah Isaac Brenda, RN RN bb Marinas, Patrick, RN CLINICAL COORDINATOR RN CLINICAL COORDINATOR pm1 Columba Zaldivar2 Dominique Fernandez mt Corrections: (The following items were deleted from the chart) 21:50 21:49 BP 127 / 71; Pulse 99bpm; Resp 20bpm; Pulse Ox 100% RA; mt mt
[2017-08-17] MEDS ORDERED: IBUPROFEN 200 MG TAB PO ONE (22:01)
[2017-08-17] MEDS ORDERED: TETANUS & DIPHTHERIA TOX,ADULT 0.5 ML VIAL ONE (22:02)
== END 2017-08-17 22:31 | disposition home or self-care (01) ==
LOC: ER 14:39
PROC: 0H9AXZZ Drainage of Inguinal Skin, External Approach (ICD-10-PCS; principal; 2017-08-17)
DX: L02.214 Cutaneous abscess of groin (principal)
CPT/HCPCS: 90714; 99283

== ENCOUNTER 2017-11-24 08:49 | Emergency (ER) | payer OTHER, SELFPAY ==
[2017-11-24] MEDS ORDERED: NA CHLORIDE 0.9% 1,000 ML ONE (09:28)
[2017-11-24 09:47] LABS: Absolute Lymphocytes (CBC) 1.5 K/uL (0.7-4.9); Absolute Monocytes 0.3 K/uL (0.1-1.3); Absolute Neutrophil 5.5 K/uL (1.8-8.0); Basophils % 0.3 % (0-1.3); Eosinophils % 3.1 % (0-4.4); Hematocrit 40.5 % (36.0-45.0); Lymphocytes % 19.7 % (15.3-44.8); MCH 25.7 pg (27.0-35.0); MCV 76.6 fL (80-100); MPV 9.6 fL (7.6-11.3); Monocytes % 4.1 % (3.3-12.3); RBC Red Blood Cell Count 5.29 M/uL (3.86-4.86)
--- NOTE | 2017-11-24 09:48 | RAD REPORT ---
EXAM DESCRIPTION: CT - Head Brain Wo Cont - 11/24/2017 9:42 am CLINICAL HISTORY: HEADACHE Syncope COMPARISON: No comparisons TECHNIQUE: All CT scans are performed using dose optimization technique as appropriate and may inclu de automated exposure control or mA/KV adjustment according to patient size. FINDINGS: No intracranial hemorrhage, hydrocephalus or extra-axial fluid collection.No areas of brai n edema or evidence of midline shift. The paranasal sinuses and mastoids are clear. The calvarium is intact. IMPRESSION: No acute intracranial abnormality.
[2017-11-24 10:02] LABS: ALT/SGPT 25 U/L (12-78); AST/SGOT 18 U/L (15-37); Albumin 4.2 g/dL (3.4-5.0); Alkaline Phosphatase 64 U/L (45-117); BUN Blood Urea Nitrogen 6 mg/dL (7-18); Bicarbonate 22 mmol/L (21-32); Bilirubin Direct 0.3 mg/dL (0-0.2); Bilirubin Total 1.4 mg/dL (0.2-1.0); CKMB Creatine Kinase MB < 1.0 ng/mL (0.3-3.6); Creatine Phosphokinase 54 U/L (26-192); Glucose Level 102 mg/dL (74-106); Magnesium 2.1 mg/dL (1.8-2.4); NT PRO-BNP 15 pg/mL (<125); Potassium 3.3 mmol/L (3.5-5.1); Protein, Total 8.6 g/dL (6.4-8.2); Sodium Level 136 mmol/L (136-145)
--- NOTE | 2017-11-24 10:12 | EDPHYS ---
Physician Documentation [facility] Name: Mary Napier Age: 32 yrs Sex: Female : 1985 Arrival Date: 11/24/2017 Time: 08:53 Bed 2 Private MD: None, None ED Physician Suman Hightower HPI: 11/24 09:25 This 32 yrs old Female presents to ER via Ambulatory with complaints of Passed tiffanie Out Prior To Arrival. 09:25 The patient has experienced near-syncope. Onset: The symptoms/episode began/occurred tiffanie just prior to arrival. Duration: This was a single episode, that lasted 15 second(s). Context: the episode(s) was witnessed, by co-worker(s). Associated injury: The patient did not suffer any apparent associated injury. Associated signs and symptoms: The patient has no apparent associated signs or symptoms. Current symptoms: headache. The patient has not experienced similar symptoms in the past. Historical: - Allergies: 09:09 Amoxicillin; ss - Home Meds: 09:09 None [Active]; ss - PMHx: 09:09 None; ss - PSHx: 09:09 None; ss - Immunization history:: Adult Immunizations up to date. - Social history:: Smoking status: Patient/guardian denies using tobacco. - Ebola Screening: : Patient denies exposure to infectious person Patient denies travel to an Ebola-affected area in the 21 days before illness onset. - Family history:: not pertinent. ROS: 09:25 Constitutional: Negative for fever, chills, and weight loss, Eyes: Negative for injury, tiffanie pain, redness, and discharge, ENT: Negative for injury, pain, and discharge, Neck: Negative for injury, pain, and swelling, Cardiovascular: Negative for chest pain, palpitations, and edema, Respiratory: Negative for shortness of breath, cough, wheezing, and pleuritic chest pain, Abdomen/GI: Negative for abdominal pain, nausea, vomiting, diarrhea, and constipation, Back: Negative for injury and pain, : Negative for injury, bleeding, discharge, and swelling, MS/Extremity: Negative for injury and deformity, Skin: Negative for injury, rash, and discoloration, Psych: Negative for depression, anxiety, suicide ideation, homicidal ideation, and hallucinations, Allergy/Immunology: Negative for hives, rash, and allergies, Endocrine: Negative for neck swelling, polydipsia, polyuria, polyphagia, and marked weight changes, Hematologic/Lymphatic: Negative for swollen nodes, abnormal bleeding, and unusual bruising. 09:25 Neuro: Positive for altered mental status, weakness. 09:25 Neuro: Positive for headache, weakness. tiffanie Exam: :25 Constitutional: This is a well developed, well nourished patient who is awake, alert, tiffanie and in no acute distress. Head/Face: Normocephalic, atraumatic. Eyes: Pupils equal round and reactive to light, extra-ocular motions intact. Lids and lashes normal. Conjunctiva and sclera are non-icteric and not injected. Cornea within normal limits. Periorbital areas with no swelling, redness, or edema. ENT: Nares patent. No nasal discharge, no septal abnormalities noted. Tympanic membranes are normal and external auditory canals are clear. Oropharynx with no redness, swelling, or masses, exudates, or evidence of obstruction, uvula midline. Mucous membranes moist. Neck: Trachea midline, no thyromegaly or masses palpated, and no cervical lymphadenopathy. Supple, full range of motion without nuchal rigidity, or vertebral point tenderness. No Meningismus. Chest/axilla: Normal chest wall appearance and motion. Nontender with no deformity. No lesions are appreciated. Cardiovascular: Regular rate and rhythm with a normal S1 and S2. No gallops, murmurs, or rubs. Normal PMI, no JVD. No pulse deficits. Respiratory: Lungs have equal breath sounds bilaterally, clear to auscultation and percussion. No rales, rhonchi or wheezes noted. No increased work of breathing, no retractions or nasal flaring. Abdomen/GI: Soft, non-tender, with normal bowel sounds. No distension or tympany. No guarding or rebound. No evidence of tenderness throughout. Back: No spinal tenderness. No costovertebral tenderness. Full range of motion. Skin: Warm, dry with normal turgor. Normal color with no rashes, no lesions, and no evidence of cellulitis. MS/ Extremity: Pulses equal, no cyanosis. Neurovascular intact. Full, normal range of motion. Neuro: Awake and alert, GCS 15, oriented to person, place, time, and situation. Cranial nerves II-XII grossly intact. Motor strength 5/5 in all extremities. Sensory grossly intact. Cerebellar exam normal. Normal gait. Psych: Awake, alert, with orientation to person, place and time. Behavior, mood, and affect are within normal limits. Vital Signs: 09:09 BP 118 / 81; Resp 16; Pulse Ox 100% on R/A; Weight 86.18 kg; Height 5 ft. 4 in. (162.56 hb cm); Pain 0/10; 09:20 BP 123 / 76 Supine; Pulse 75; hb 09:23 BP 119 / 85 Sitting; Pulse 70; hb 09:26 BP 110 / 93 Standing; Pulse 97; hb 10:30 BP 114 / 76; Pulse 74; Resp 15; Pulse Ox 100% on R/A; hb 09:09 Body Mass Index 32.61 (86.18 kg, 162.56 cm) hb MDM: 09:17 Patient medically screened. [facility] 09:27 Data reviewed: vital signs, nurses notes, lab test result(s), EKG, radiologic studies, [facility] CT scan, plain films. 11/24 09:13 Order name: Glucose, Ancillary Testing; Complete Time: 09:17 EDTX 11/24 09:13 Order name: Glucose, Ancillary Testing [facility] 11/24 09:18 Order name: Basic Metabolic Panel; Complete Time: 10:06 [facility] 11/24 09:18 Order name: CBC with Diff; Complete Time: 10:06 [facility] 11/24 09:18 Order name: Ckmb; Complete Time: 10:06 [facility] 11/24 09:18 Order name: CPK; Complete Time: 10:06 [facility] 11/24 09:18 Order name: LFT's; Complete Time: 10:06 [facility] 11/24 09:18 Order name: Magnesium; Complete Time: 10:06 [facility] 11/24 09:18 Order name: NT PRO-BNP; Complete Time: 10:06 [facility] 11/24 09:18 Order name: Troponin (emerg Dept Use Only); Complete Time: 10:06 [facility] 11/24 09:18 Order name: XRAY Chest (1 view) [facility] 11/24 09:23 Order name: CT Head Brain wo Cont; Complete Time: 10:06 [facility] 11/24 10:16 Order name: Urine Dipstick--Ancillary (enter results) 11/24 10:16 Order name: Urine --Ancillary (enter results) 11/24 09:18 Order name: Urine Test (obtain specimen); Complete Time: 10:06 [facility] 11/24 09:18 Order name: EKG; Complete Time: 09:18 [facility] 11/24 09:18 Order name: Cardiac monitoring; Complete Time: 09:20 [facility] 11/24 09:18 Order name: EKG - Nurse/Tech; Complete Time: 10:06 [facility] 11/24 09:18 Order name: IV Saline Lock; Complete Time: 09: [facility] 11/24 09:18 Order name: Labs collected and sent; Complete Time: 09: [facility] 11/24 09:18 Order name: O2 Per Protocol; Complete Time: 09: [facility] 11/24 09:18 Order name: O2 Sat Monitoring; Complete Time: : [facility] 11/24 09:18 Order name: Urine Dipstick-Ancillary (obtain specimen); Complete Time: 10: [facility] 11/24 09:18 Order name: Orthostatic Blood Pressure; Complete Time: 09:25 [facility] Administered Medications: 09:25 Drug: NS 0.9% 1000 ml Route: IV; Rate: 1 bolus; Site: left antecubital; hb 10:22 Follow up: Response: No adverse reaction; IV Status: Completed infusion hb Point of Care Testing: Blood Glucose: : Blood Glucose: 107 mg/dL; hb Ranges: Critical Glucose Levels:Adult <50 mg/dl or >400 mg/dl <40 mg/dl or >180 mg/dl Disposition: 11/24/17 10:12 Discharged to Home. Impression: Syncope and collapse. - Condition is Stable. - Discharge Instructions: Near-Syncope, Weakness, Near-Syncope, [id number], Weakness, [id number], Vasovagal Syncope, Adult. - Medication Reconciliation Form, Thank You Letter, Antibiotic Education, Prescription Opioid Use, Work release form form. - Follow up: Private Physician; When: 1 - 2 days; Reason: Recheck today's complaints, Continuance of care, Re-evaluation by your physician. - Problem is new. - Symptoms have improved. Signatures: Dispatcher [employer] EDTX Suman Hightower MD MD cha Smirch, Shelby, Carol Ann Hooker RN, RN RN hb Corrections: (The following items were deleted from the chart) 10:51 10:12 11/24/2017 10:12 Discharged to Home. Impression: Syncope and collapse. Condition hb is Stable. Discharge Instructions: Near-Syncope, Weakness, Near-Syncope, [id number], Weakness, [id number], Vasovagal Syncope, Adult. Forms are Medication Reconciliation Form, Thank You Letter, Antibiotic Education, Prescription Opioid Use. Follow up: Private Physician; When: 1 - 2 days; Reason: Recheck today's complaints, Continuance of care, Re-evaluation by your physician. Problem is new. Symptoms have improved. tiffanie
--- NOTE | 2017-11-24 10:12 | ER ---
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 Transition of care: patient was not received from another setting of care. Onset of symptoms was November 24, 2017. Risk Assessment: Do you want to hurt yourself or someone else? Patient reports no desire to harm self or others. Initial Sepsis Screen: Does the patient have a suspected source of infection? No. Patient's initial sepsis screen is negative. 09:07 Method Of Arrival: Ambulatory ss 09:07 Acuity: SOFIA 3 09:15 Initial Sepsis Screen: Does the patient meet any 2 criteria? No. Patient's initial hb sepsis screen is negative. Care prior to arrival: None. Historical: - Allergies: 09:09 Amoxicillin; ss - Home Meds: 09:09 None [Active]; ss - PMHx: 09:09 None; ss - PSHx: 09:09 None; ss - Immunization history:: Adult Immunizations up to date. - Social history:: Smoking status: Patient/guardian denies using tobacco. - Ebola Screening: : Patient denies exposure to infectious person Patient denies travel to an Ebola-affected area in the 21 days before illness onset. - Family history:: not pertinent. Screenin:18 Abuse screen: Denies threats or abuse. Denies injuries from another. Nutritional hb screening: No deficits noted. Tuberculosis screening: No symptoms or risk factors identified. Fall Risk None identified. Assessment: 09:19 General: Appears in no apparent distress. Behavior is calm, cooperative. Pain: Denies hb pain. Neuro: Level of Consciousness is awake, alert, obeys commands, Oriented to person, place, time, situation. Cardiovascular: Capillary refill < 3 seconds Patient's skin is warm and dry. Respiratory: Airway is patent Trachea midline Respiratory effort is even, unlabored, Respiratory pattern is regular, symmetrical, Breath sounds are clear bilaterally. GI: No signs and/or symptoms were reported involving the gastrointestinal system. : No signs and/or symptoms were reported regarding the genitourinary system. EENT: No signs and/or symptoms were reported regarding the EENT system. Derm: No signs and/or symptoms reported regarding the dermatologic system. Skin is intact, is healthy with good turgor. Musculoskeletal: No signs and/or symptoms reported regarding the musculoskeletal system. 10:00 Reassessment: Patient appears in no apparent distress at this time. Patient and/or hb family updated on plan of care and expected duration. Pain level reassessed. Patient is alert, oriented x 3, equal unlabored respirations, skin warm/dry/pink. Vital Signs: 09:09 BP 118 / 81; Resp 16; Pulse Ox 100% on R/A; Weight 86.18 kg; Height 5 ft. 4 in. (162.56 hb cm); Pain 0/10; 09:20 BP 123 / 76 Supine; Pulse 75; hb 09:23 BP 119 / 85 Sitting; Pulse 70; hb 09:26 BP 110 / 93 Standing; Pulse 97; hb 10:30 BP 114 / 76; Pulse 74; Resp 15; Pulse Ox 100% on R/A; hb 09:09 Body Mass Index 32.61 (86.18 kg, 162.56 cm) hb ED Course: 08:53 Patient arrived in ED. mr 08:53 None, None is Private Physician. mr 09:09 Triage completed. ss 09:09 Arm band placed on right wrist. ss 09:17 Suman Hightower MD is Attending Physician. tiffanie 09:18 Carol Ann Sam, RN is Primary Nurse. hb 09:18 Patient has correct armband on for positive identification. Placed in gown. Bed in low hb position. Call light in reach. Side rails up X 1. 09:18 Inserted saline lock: 24 gauge in left antecubital area, using aseptic technique. Blood hb collected. 09:20 Orthostatics completed. mb4 09:21 Glucose, Ancillary Testing Sent. hb 09:39 CT completed. Patient tolerated procedure well. Patient moved to CT via wheelchair. 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 reviewed by Suman Hightower MD. at1 09:41 CT Head Brain wo Cont In Process Unspecified. EDMS 10:05 Urine collected: clean catch specimen, cloudy. mb4 10:29 X-ray completed. Portable x-ray completed in exam room. Patient tolerated procedure jb2 well. 10:30 XRAY Chest (1 view) In Process Unspecified. EDMS 10:37 No provider procedures requiring assistance completed. IV discontinued, intact, hb bleeding controlled, No redness/swelling at site. Pressure dressing applied. Administered Medications: 09:25 Drug: NS 0.9% 1000 ml Route: IV; Rate: 1 bolus; Site: left antecubital; hb 10:22 Follow up: Response: No adverse reaction; IV Status: Completed infusion hb Point of Care Testing: Blood Glucose: 09:19 Blood Glucose: 107 mg/dL; hb Ranges: Outcome: 10:12 Discharge ordered by . [facility] 10:37 Discharged to home ambulatory. hb 10:37 Condition: stable 10:37 Discharge instructions given to patient, Instructed on discharge instructions, follow up and referral plans. medication usage, Demonstrated understanding of instructions, follow-up care, medications. 10:51 Patient left the ED. hb Signatures: Dispatcher [employer] EDMS Suman Hightower MD MD cha Rivera, Maria CitlallimagenRico2 Ellen aLke, RN RN Samantha Li, risk specialist EKG Tat1 Carol Ann Sam RN RN Janell Sam mb4 Dorothea Ibrahim6 Corrections: (The following items were deleted from the chart) 09:18 09:09 Resp 16bpm; 86.18 kg; Height 5 ft. 4 in.; BMI: 32.6; Pain 0/10; hb
--- NOTE | 2017-11-24 10:39 | RAD REPORT ---
EXAM DESCRIPTION: RAD - Chest Single View - 11/24/2017 10:30 am CLINICAL HISTORY: COUGH Chest pain. COMPARISON: CHEST SINGLE VIEW dated 02/25/2010 FINDINGS: Portable technique limits examination quality. The lungs are grossly clear. The heart is normal in size. No displaced fractures. IMPRESSION: No acute intrathoracic process suspected.
[2017-11-24 12:03] LABS: Urine Blood TRACE (NEG); Urine Glucose NEGATIVE (NEG); Urine Protein NEGATIVE (NEG); Urine Specific Gravity 1.015 (1.005-1.030); Urine pH 5.5 (5.0-7.0)
--- NOTE | 2017-11-25 06:08 | EKG ---
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
== END 2017-11-24 10:51 | disposition home or self-care (01) ==
LOC: ER 08:49
DX: R55 Syncope and collapse (principal); Z88.1 Allergy status to other antibiotic agents
CPT/HCPCS: 36415; 70450; 71045; 80048; 80076; 81003; 81025; 82550; 82553; 82962; 83735; 83880; 84484; 85025; 93005; 96360; 99284; J7030

== ENCOUNTER 2019-06-11 | Emergency (ER) | payer SELFPAY ==
--- NOTE | 2019-06-11 19:27 | EDPHYS ---
Physician Documentation [facility] Name: Mary Napier Age: 34 yrs Sex: Female : 1985 Arrival Date: 06/11/2019 Time: 18:48 Bed 30 Private MD: ED Physician Suman Hightower HPI: 06/10 19:22 This 34 yrs old Female presents to ER via Ambulatory with complaints of tiffanie Redness of Eye. 19:22 The patient is experiencing pain, redness, The patient sustained Unknown. Onset: The tiffanie symptoms/episode began/occurred 2 day(s) ago. Duration: the symptoms are continuous. Aggravated by opening eye, Alleviated by blinking. Associated signs and symptoms: Pertinent positives: None. Pertinent negatives: None. Patient wears glasses. Severity of symptoms: At their worst the symptoms were mild in the emergency department the symptoms are unchanged. The patient has not experienced similar symptoms in the past. 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 - Social history:: Smoking status: Patient reports the use of cigarette tobacco products, smokes one-half pack cigarettes per day. - Family history:: not pertinent. ROS: 19:22 Constitutional: Negative for fever, chills, and weight loss, ENT: Negative for injury, tiffanie pain, and discharge, Neck: Negative for injury, pain, and swelling, Cardiovascular: Negative for chest pain, palpitations, and edema, Respiratory: Negative for shortness of breath, cough, wheezing, and pleuritic chest pain, Abdomen/GI: Negative for abdominal pain, nausea, vomiting, diarrhea, and constipation, Back: Negative for injury and pain, : Negative for injury, bleeding, discharge, and swelling, MS/Extremity: Negative for injury and deformity, Skin: Negative for injury, rash, and discoloration, Neuro: Negative for headache, weakness, numbness, tingling, and seizure, Psych: Negative for depression, anxiety, suicide ideation, homicidal ideation, and hallucinations, Allergy/Immunology: Negative for hives, rash, and allergies, Endocrine: Negative for neck swelling, polydipsia, polyuria, polyphagia, and marked weight changes, Hematologic/Lymphatic: Negative for swollen nodes, abnormal bleeding, and unusual bruising. 19:22 Eyes: Positive for itching, matting, redness, of the outer aspect of conjuctiva of left eye and inner aspect of conjunctiva of left eye. Exam: 19:22 Constitutional: This is a well developed, well nourished patient who is awake, alert, tiffanie and in no acute distress. Head/Face: Normocephalic, atraumatic. ENT: Nares patent. No nasal discharge, no septal abnormalities noted. Tympanic membranes are normal and external auditory canals are clear. Oropharynx with no redness, swelling, or masses, exudates, or evidence of obstruction, uvula midline. Mucous membranes moist. Neck: Trachea midline, no thyromegaly or masses palpated, and no cervical lymphadenopathy. Supple, full range of motion without nuchal rigidity, or vertebral point tenderness. No Meningismus. Chest/axilla: Normal chest wall appearance and motion. Nontender with no deformity. No lesions are appreciated. Cardiovascular: Regular rate and rhythm with a normal S1 and S2. No gallops, murmurs, or rubs. Normal PMI, no JVD. No pulse deficits. Respiratory: Lungs have equal breath sounds bilaterally, clear to auscultation and percussion. No rales, rhonchi or wheezes noted. No increased work of breathing, no retractions or nasal flaring. Abdomen/GI: Soft, non-tender, with normal bowel sounds. No distension or tympany. No guarding or rebound. No evidence of tenderness throughout. Back: No spinal tenderness. No costovertebral tenderness. Full range of motion. Skin: Warm, dry with normal turgor. Normal color with no rashes, no lesions, and no evidence of cellulitis. MS/ Extremity: Pulses equal, no cyanosis. Neurovascular intact. Full, normal range of motion. Neuro: Awake and alert, GCS 15, oriented to person, place, time, and situation. Cranial nerves II-XII grossly intact. Motor strength 5/5 in all extremities. Sensory grossly intact. Cerebellar exam normal. Normal gait. Psych: Awake, alert, with orientation to person, place and time. Behavior, mood, and affect are within normal limits. 19:22 Eyes: Periorbital structures: appear normal, no acute changes, Pupils: no acute changes, equal, round, and reactive to light and accomodation, Extraocular movements: intact throughout, Conjunctiva: normal, no acute changes, Corneas: are normal, no acute changes, Sclera: INJECTED SCLERA. Vital Signs: 18:50 BP 106 / 66; Pulse 89; Resp 17 S; Temp 97.1(TE); Pulse Ox 100% on R/A; Weight 86.18 kg; ca1 Height 5 ft. 4 in. (162.56 cm); Pain 0/10; 18:50 Body Mass Index 32.61 (86.18 kg, 162.56 cm) ca1 MDM: 18:56 Patient medically screened. [facility] 19:24 Data reviewed: vital signs, nurses notes. [facility] Administered Medications: No medications were administered Disposition: 06/11/19 19:27 Discharged to Home. Impression: Conjunctivitis. - Condition is Stable. - Discharge Instructions: Bacterial Conjunctivitis. - Prescriptions for Polytrim 10,000 unit- 1 mg/mL Ophthalmic drops - instill 1 drop by OPHTHALMIC route every 6 hours; 10 milliliter. - Work release form, Medication Reconciliation Form, Thank You Letter, Antibiotic Education, Prescription Opioid Use form. - Follow up: Private Physician; When: 2 - 3 days; Reason: Recheck today's complaints, Continuance of care, Re-evaluation by your physician. Follow up: Wong Tejada MD; When: 2 - 3 days; Reason: Recheck today's complaints, Continuance of care, Re-evaluation by your physician. - Problem is new. - Symptoms have improved. Signatures: Suman Hightower MD MD cha Williams, Irene, RN RN iw Elisabeth Byrne RN RN ca1 Corrections: (The following items were deleted from the chart) 19:37 19:27 06/11/2019 19:27 Discharged to Home. Impression: Conjunctivitis. Condition is iw Stable. Forms are Medication Reconciliation Form, Thank You Letter, Antibiotic Education, Prescription Opioid Use. Follow up: Private Physician; When: 2 - 3 days; Reason: Recheck today's complaints, Continuance of care, Re-evaluation by your physician. Follow up: Wong Tejada; When: 2 - 3 days; Reason: Recheck today's complaints, Continuance of care, Re-evaluation by your physician. Problem is new. Symptoms have improved. tiffanie
--- NOTE | 2019-06-11 19:27 | ER ---
Nurse's Notes [facility] Name: Mary Napier Age: 34 yrs Sex: Female : 1985 Arrival Date: 06/11/2019 Time: 18:48 Bed 30 Private MD: Diagnosis: Conjunctivitis Presentation: 06/10 18:50 Chief complaint: Patient states: "I have a pink eye on the L eye started this morning. ca1 My job in [place] want a doctor's note and I don't have a doctor so I came here. Yesterday, my job also sent me home because I had diarrhea". Coronavirus screen: The patient has NOT traveled to a country currently being monitored by the [facility] within the last 14 days. The patient has NOT had contact with any known and/or suspected case of coronavirus. Ebola Screen: Patient negative for fever greater than or equal to 101.5 degrees Fahrenheit, and additional compatible Ebola Virus Disease symptoms Patient denies exposure to infectious person. Patient denies travel to an Ebola-affected area in the 21 days before illness onset. No symptoms or risks identified at this time. Initial Sepsis Screen: Does the patient meet any 2 criteria? No. Patient's initial sepsis screen is negative. Does the patient have a suspected source of infection? No. Patient's initial sepsis screen is negative. Risk Assessment: Do you want to hurt yourself or someone else? Patient reports no desire to harm self or others. Onset of symptoms was June 11, 2019. 18:50 Method Of Arrival: Ambulatory ca1 18:50 Acuity: SOFIA 5 ca1 Triage Assessment: 19:00 General: Appears in no apparent distress. Behavior is calm, cooperative. 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 - Social history:: Smoking status: Patient reports the use of cigarette tobacco products, smokes one-half pack cigarettes per day. - Family history:: not pertinent. Screenin:36 Abuse screen: Denies threats or abuse. Denies injuries from another. Nutritional iw screening: No deficits noted. Tuberculosis screening: No symptoms or risk factors identified. Fall Risk None identified. Assessment: 18:50 General: Appears in no apparent distress. Behavior is calm, cooperative. Pain: Denies iw pain. Neuro: Level of Consciousness is awake, alert, obeys commands, Oriented to person, place, time, situation, Moves all extremities. Respiratory: Respiratory effort is even, unlabored. Derm: Skin is intact, is healthy with good turgor. Musculoskeletal: Range of motion: intact in all extremities. Vital Signs: 18:50 BP 106 / 66; Pulse 89; Resp 17 S; Temp 97.1(TE); Pulse Ox 100% on R/A; Weight 86.18 kg; ca1 Height 5 ft. 4 in. (162.56 cm); Pain 0/10; 18:50 Body Mass Index 32.61 (86.18 kg, 162.56 cm) ca1 ED Course: 18:48 Patient arrived in ED. rg4 18:51 Suman Hightower MD is Attending Physician. tiffanie 18:54 Triage completed. ca1 18:54 Arm band placed on right wrist. ca1 19:00 Patient has correct armband on for positive identification. iw 19:12 Julianna Peterson, RN is Primary Nurse. iw 19:26 Wong Tejada MD is Referral Physician. tiffanie 19:36 No provider procedures requiring assistance completed. Patient did not have IV access iw during this emergency room visit. Administered Medications: No medications were administered Outcome: 19:27 Discharge ordered by . tiffanie 19:36 Discharged to home ambulatory, with family. iw 19:36 Condition: good 19:36 Discharge instructions given to patient, Instructed on discharge instructions, follow up and referral plans. medication usage, Demonstrated understanding of instructions, follow-up care, medications, Prescriptions given X 1. 19:37 Patient left the ED. iw Signatures: Suman Hightower MD MD cha Williams, Irene, RN Zoila Charles rg4 Elisabeth Byrne RN RN ca1
== END 2019-06-11 19:37 | disposition home or self-care (01) ==
CPT/HCPCS: 99282

== ENCOUNTER 2020-03-29 10:18 | Emergency (ER) | payer SELFPAY ==
[2020-03-29] MEDS ORDERED: DIPHENHYDRAMINE 25 MG TAB/CAP ONE (11:03)
[2020-03-29] MEDS ORDERED: predniSONE 20 MG TAB ONE (11:03)
[2020-03-29] MEDS ORDERED: FAMOTIDINE 20 MG TAB ONE (11:03)
--- NOTE | 2020-03-29 11:04 | EDPHYS ---
Physician Documentation [facility] Name: Mary Napier Age: 34 yrs Sex: Female : 1985 Arrival Date: 03/29/2020 Time: 10:21 Bed 20 Private MD: LEONOR Physician Suman Hightower HPI: 03/29 10:58 This 34 yrs old Female presents to ER via Ambulatory with complaints of Hives, tiffanie Facial Swelling. 10:58 The patient's rash thought to be caused by Dermatitis. The rash is located on the face tiffanie and chest. The rash can be described as diffuse, erythematous, papular, raised. Onset: The symptoms/episode began/occurred 2 day(s) ago. Associated signs and symptoms: Pertinent positives: burning sensation, itching, Pain. Severity of symptoms: At their worst the symptoms were moderate in the emergency department the symptoms are unchanged. The patient presents with diffuse swelling, localized swelling, rash, redness of skin. 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 - Social history:: Smoking status: Patient denies any tobacco usage or history of. - Family history:: not pertinent. ROS: 10:58 Constitutional: Negative for fever, chills, and weight loss, Eyes: Negative for injury, tiffanie pain, redness, and discharge, ENT: Negative for injury, pain, and discharge, Neck: Negative for injury, pain, and swelling, Cardiovascular: Negative for chest pain, palpitations, and edema, Respiratory: Negative for shortness of breath, cough, wheezing, and pleuritic chest pain, Abdomen/GI: Negative for abdominal pain, nausea, vomiting, diarrhea, and constipation, Back: Negative for injury and pain, : Negative for injury, bleeding, discharge, and swelling, MS/Extremity: Negative for injury and deformity, Neuro: Negative for headache, weakness, numbness, tingling, and seizure, Psych: Negative for depression, anxiety, suicide ideation, homicidal ideation, and hallucinations, Allergy/Immunology: Negative for hives, rash, and allergies, Endocrine: Negative for neck swelling, polydipsia, polyuria, polyphagia, and marked weight changes, Hematologic/Lymphatic: Negative for swollen nodes, abnormal bleeding, and unusual bruising. 10:58 Skin: Positive for erythema, rash, swelling, of the face and chest. Exam: 10:58 Constitutional: This is a well developed, well nourished patient who is awake, alert, tiffanie and in no acute distress. Head/Face: Normocephalic, atraumatic. Eyes: Pupils equal round and reactive to light, extra-ocular motions intact. Lids and lashes normal. Conjunctiva and sclera are non-icteric and not injected. Cornea within normal limits. Periorbital areas with no swelling, redness, or edema. ENT: Nares patent. No nasal discharge, no septal abnormalities noted. Tympanic membranes are normal and external auditory canals are clear. Oropharynx with no redness, swelling, or masses, exudates, or evidence of obstruction, uvula midline. Mucous membranes moist. Neck: Trachea midline, no thyromegaly or masses palpated, and no cervical lymphadenopathy. Supple, full range of motion without nuchal rigidity, or vertebral point tenderness. No Meningismus. Chest/axilla: Normal chest wall appearance and motion. Nontender with no deformity. No lesions are appreciated. Cardiovascular: Regular rate and rhythm with a normal S1 and S2. No gallops, murmurs, or rubs. Normal PMI, no JVD. No pulse deficits. Respiratory: Lungs have equal breath sounds bilaterally, clear to auscultation and percussion. No rales, rhonchi or wheezes noted. No increased work of breathing, no retractions or nasal flaring. Abdomen/GI: Soft, non-tender, with normal bowel sounds. No distension or tympany. No guarding or rebound. No evidence of tenderness throughout. Back: No spinal tenderness. No costovertebral tenderness. Full range of motion. MS/ Extremity: Pulses equal, no cyanosis. Neurovascular intact. Full, normal range of motion. Neuro: Awake and alert, GCS 15, oriented to person, place, time, and situation. Cranial nerves II-XII grossly intact. Motor strength 5/5 in all extremities. Sensory grossly intact. Cerebellar exam normal. Normal gait. Psych: Awake, alert, with orientation to person, place and time. Behavior, mood, and affect are within normal limits. 10:58 ENT: Posterior pharynx: no acute changes, Airway: normal, no evidence of obstruction. 10:58 Skin: Appearance: Color: normal in color, Temperature: normal temperature, Moisture: normal moisture, petechiae, not noted, ecchymosis, not noted. Vital Signs: 10:38 BP 116 / 78; Pulse 77; Resp 16; Temp 99.3(TE); Pulse Ox 99% on R/A; Weight 90.72 kg; ss Height 5 ft. 4 in. (162.56 cm); 10:38 Body Mass Index 34.33 (90.72 kg, 162.56 cm) ss MDM: 10:22 Patient medically screened. tiffanie 11:01 Differential diagnosis: allergic reaction, anaphylaxis, angioedema, bronchospasm. Data tiffanie reviewed: vital signs, nurses notes. Data interpreted: site monitor: rate is 77 beats/min, rhythm is regular, Pulse oximetry: on room air is 99 %. Test interpretation: by ED physician or midlevel provider: ECG, plain radiologic studies. Counseling: I had a detailed discussion with the patient and/or guardian regarding: the historical points, exam findings, and any diagnostic results supporting the discharge/admit diagnosis, the need for outpatient follow up, for definitive care, an allergy/research quality assurance specialist, a family practitioner. Administered Medications: 10:50 Drug: Benadryl 50 mg Route: PO; ll1 11:37 Follow up: Response: No adverse reaction; RASS: Alert and Calm (0) ll1 10:50 Drug: Pepcid 40 mg Route: PO; ll1 11:30 Follow up: Response: No adverse reaction; RASS: Alert and Calm (0) ll1 10:50 Drug: predniSONE 60 mg Route: PO; ll1 11:30 Follow up: Response: No adverse reaction; RASS: Alert and Calm (0) ll1 Disposition: 03/29/20 11:03 Discharged to Home. Impression: Urticaria. - Condition is Stable. - Discharge Instructions: Hives, Contact Dermatitis, [id number], Hives, [id number], Allergies, [id number]-ss-Ilgd. - Prescriptions for Benadryl 25 mg Oral Capsule - take 2 capsule by ORAL route every 6 hours As needed; 4 tablet. Pepcid 20 mg Oral Tablet - take 1 tablet by ORAL route every 12 hours for 10 days; 20 tablet. Prednisone 20 mg Oral Tablet - take 2 tablet by ORAL route once daily for 5 days; 10 tablet. EpiPen 0.3 mg Injection auto- injector - inject 1 pen by INTRAMUSCULAR route as directed Inject into the outer portion of the thigh, through clothing if necessary. Indicated in the emergency treatment of allergic reactions; 1 Container. - Medication Reconciliation Form, Thank You Letter, Antibiotic Education, Prescription Opioid Use, Work release form form. - Follow up: Private Physician; When: 2 - 3 days; Reason: Recheck today's complaints, Continuance of care, Re-evaluation by your physician. - Problem is new. - Symptoms have improved. Signatures: Suman Hightower MD MD cha Smirch, Shelby, RN RN Morelia Angelo RN RN ll1 Corrections: (The following items were deleted from the chart) 11:31 11:03 03/29/2020 11:03 Discharged to Home. Impression: Urticaria. Condition is Stable. ll1 Forms are Medication Reconciliation Form, Thank You Letter, Antibiotic Education, Prescription Opioid Use. Follow up: Private Physician; When: 2 - 3 days; Reason: Recheck today's complaints, Continuance of care, Re-evaluation by your physician. Problem is new. Symptoms have improved. tiffanie
--- NOTE | 2020-03-29 11:04 | ER ---
Nurse's Notes [facility] Name: Mary Napier Age: 34 yrs Sex: Female : 1985 Arrival Date: 03/29/2020 Time: 10:21 Bed 20 Private MD: Diagnosis: Urticaria Presentation: 03/29 10:38 Chief complaint: Patient states: L sided facial swelling and hives to chest and ss bilateral arms that began yesterday. Coronavirus screen: Client denies travel out of the [place] in the last 14 days. Ebola Screen: Patient denies exposure to infectious person. Patient denies travel to an Ebola-affected area in the 21 days before illness onset. Onset: The symptoms/episode began/occurred 1 day(s) ago. Anaphylaxis evaluation, no signs or symptoms of anaphylaxis were noted. Initial Sepsis Screen: Does the patient meet any 2 criteria? No. Patient's initial sepsis screen is negative. Does the patient have a suspected source of infection? No. Patient's initial sepsis screen is negative. Risk Assessment: Do you want to hurt yourself or someone else? Patient reports no desire to harm self or others. Onset of symptoms was February 25, 2021. 10:38 Method Of Arrival: Ambulatory ss 10:38 Acuity: SOFIA 4 ss Triage Assessment: 10:50 General: Appears in no apparent distress. Behavior is calm, cooperative. 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 - Social history:: Smoking status: Patient denies any tobacco usage or history of. - Family history:: not pertinent. Screenin:30 Abuse screen: Denies threats or abuse. Nutritional screening: No deficits noted. ll1 Tuberculosis screening: No symptoms or risk factors identified. Fall Risk None identified. Total Grace Fall Scale indicates No Risk (0-24 pts). Assessment: 10:50 General: Appears uncomfortable, Behavior is calm, cooperative, appropriate for age. ll1 Pain: Denies pain. Neuro: No deficits noted. Cardiovascular: No deficits noted. Respiratory: No deficits noted. Airway is patent Trachea midline Respiratory effort is even, unlabored, Respiratory pattern is regular, symmetrical, Breath sounds are clear bilaterally. Denies shortness of breath. Derm: Rash noted that is itchy, red, Reports rash with itching all over, including face. 11:40 Reassessment: No changes from previously documented assessment. Patient and/or family ll1 updated on plan of care and expected duration. Pain level reassessed. Vital Signs: 10:38 BP 116 / 78; Pulse 77; Resp 16; Temp 99.3(TE); Pulse Ox 99% on R/A; Weight 90.72 kg; ss Height 5 ft. 4 in. (162.56 cm); 10:38 Body Mass Index 34.33 (90.72 kg, 162.56 cm) ED Course: 10:21 Patient arrived in ED. rg4 10:22 Suman Hightower MD is Attending Physician. tiffanie 10:25 Morelia Hennessy RN is Primary Nurse. ll1 10:43 Triage completed. ss 10:44 Arm band placed on right wrist. ss 10:50 Patient has correct armband on for positive identification. Bed in low position. Call ll1 light in reach. Side rails up X 1. Cardiac monitoring not applicable on this patient. 11:30 No provider procedures requiring assistance completed. Patient did not have IV access ll1 during this emergency room visit. Administered Medications: 10:50 Drug: Benadryl 50 mg Route: PO; ll1 11:37 Follow up: Response: No adverse reaction; RASS: Alert and Calm (0) ll1 10:50 Drug: Pepcid 40 mg Route: PO; ll1 11:30 Follow up: Response: No adverse reaction; RASS: Alert and Calm (0) ll1 10:50 Drug: predniSONE 60 mg Route: PO; ll1 11:30 Follow up: Response: No adverse reaction; RASS: Alert and Calm (0) ll1 Outcome: 11:03 Discharge ordered by . tiffanie 11:31 Patient left the ED. ll1 11:31 Discharged to home ambulatory. ll1 11:31 Condition: stable 11:31 Discharge instructions given to patient, Instructed on discharge instructions, follow up and referral plans. no driving heavy equipment, medication usage, Demonstrated understanding of instructions, follow-up care, medications, Prescriptions given X 4. Signatures: Suman Hightower MD MD cha Smirch Ellen, RN RN ss Zoila Ibrahim rg4 Morelia Hennessy, RN RN ll1
[2020-03-29 11:36] VITALS: BP 116/78; TEMP 99.3; O2SAT 99
== END 2020-03-29 11:31 | disposition home or self-care (01) ==
LOC: ER 10:18
DX: L50.9 Urticaria, unspecified (principal); Z88.1 Allergy status to other antibiotic agents
CPT/HCPCS: 99283; J7512

== ENCOUNTER 2020-04-05 16:22 | Emergency (ER) | payer SELFPAY ==
[2020-04-05] MEDS ORDERED: FAMOTIDINE 20 MG/2 ML VIAL IV ONE (17:19)
[2020-04-05] MEDS ORDERED: DIPHENHYDRAMINE 50 MG/ML VIAL ONE (17:19)
[2020-04-05] MEDS ORDERED: NA CHLORIDE 0.9% 1,000 ML ONE (17:19)
[2020-04-05] MEDS ORDERED: EPINEPHRINE/PF 1 MG/ML AMP ONE (17:24)
[2020-04-05 17:39] LABS: Absolute Lymphocytes (CBC) 1.8 K/uL (0.7-4.9); Basophils % 0.6 % (0-1.3); Hematocrit 40.6 % (36.0-45.0); Lymphocytes % 22.4 % (15.3-44.8); MPV 8.8 fL (7.6-11.3); RBC Red Blood Cell Count 4.97 M/uL (3.86-4.86)
[2020-04-05 17:57] LABS: ALT/SGPT 18 U/L (12-78); AST/SGOT 14 U/L (15-37); Albumin 3.8 g/dL (3.4-5.0); Alkaline Phosphatase 93 U/L (45-117); BUN Blood Urea Nitrogen 15 mg/dL (7-18); Bicarbonate 29 mmol/L (21-32); Bilirubin Total 1.1 mg/dL (0.2-1.0); Glucose Level 80 mg/dL (74-106); Potassium 3.5 mmol/L (3.5-5.1); Protein, Total 8.9 g/dL (6.4-8.2); Sodium Level 139 mmol/L (136-145)
--- NOTE | 2020-04-05 19:05 | EDPHYS ---
Physician Documentation [facility] Name: Mary Napier Age: 34 yrs Sex: Female : 1985 Arrival Date: 04/05/2020 Time: 16:24 Bed 18 Private MD: ED Physician Willy Munoz HPI: 04/05 16:53 This 34 yrs old Female presents to ER via Ambulatory with complaints of jmm Allergic Reaction. 16:53 The patient presents with itching, rash. Onset: The symptoms/episode began/occurred jmm gradually, 8 day(s) ago. Associated signs and symptoms: Pertinent positives: vomiting. Possible causes: The patient has no known obvious cause for the symptoms. The patient has not experienced similar symptoms in the past. Patient was evaluated 1 week prior. Patient states she has finished taking steroids with no relief. . Historical: - Allergies: 16:37 Amoxicillin; aa5 - Home Meds: 16:37 None [Active]; aa5 - PMHx: 16:37 None; aa5 - PSHx: 16:37 None; aa5 ROS: 16:53 Constitutional: Negative for fever, chills, and weight loss, Cardiovascular: Negative jmm for chest pain, palpitations, and edema, Respiratory: Negative for shortness of breath, cough, wheezing, and pleuritic chest pain. 16:53 Abdomen/GI: Positive for vomiting. 16:53 Skin: Positive for erythema, rash. 16:53 All other systems are negative. Exam: 16:53 Constitutional: This is a well developed, well nourished patient who is awake, alert, jmm and in no acute distress. Head/Face: atraumatic. Eyes: EOMI, no conjunctival erythema appreciated ENT: Moist Mucus Membranes 16:53 Neck: Trachea midline, Supple Chest/axilla: Normal chest wall appearance and motion. Cardiovascular: Regular rate and rhythm. No edema appreciated Respiratory: Normal respirations, no respiratory distress appreciated Abdomen/GI: Non distended, soft Back: Normal ROM 16:53 MS/ Extremity: Moves all extremities, no obvious deformities appreciated, no edema noted to the lower extremities Neuro: Awake and alert, normal gait Psych: Behavior is normal, Mood is normal, Patient is cooperative and pleasant 16:53 ENT: no pharyngeal edema appreciated. 16:53 Skin: and is diffusely located. Vital Signs: 16:35 BP 135 / 82; Pulse 81; Resp 18 S; Temp 98.5(O); Pulse Ox 100% on R/A; aa5 17:00 BP 135 / 82; Pulse 84; Resp 16; Pulse Ox 100% ; rb3 17:51 BP 123 / 58; Pulse 85; Resp 19; Pulse Ox 100% ; rb3 MDM: 16:46 Patient medically screened. [facility] 19:03 Data reviewed: vital signs, nurses notes. Counseling: I had a detailed discussion with [facility] the patient and/or guardian regarding: the historical points, exam findings, and any diagnostic results supporting the discharge/admit diagnosis, the need for outpatient follow up, to return to the emergency department if symptoms worsen or persist or if there are any questions or concerns that arise at home. ED course: Patient states she feels much better. Rash remains. Advised to follow up with dermatology for further evaluation. Return to the ED if symptoms worsen. . 04/05 16:52 Order name: CBC with Diff; Complete Time: 18:02 [facility] 04/05 16:52 Order name: CMP; Complete Time: 18:02 [facility] 04/05 18:57 Order name: Cecil Screen Profile [facility] 04/05 16:52 Order name: Saline Lock; Complete Time: 17:35 [facility] Administered Medications: 17:20 Drug: EPINEPHrine 1mg/mL 1:1,000 0.4 ml Route: Sub-Q; Site: left upper arm; aa5 17:35 Follow up: Response: No adverse reaction; the rash remain the same rb3 17:34 Drug: NS 0.9% 1000 ml Route: IV; Rate: 1 bolus; Site: right hand; rb3 17:34 Drug: diphenhydrAMINE 50 mg Route: IVP; Site: right hand; rb3 18:32 Follow up: Response: No adverse reaction; the rash remained the same rb3 17:34 Drug: Pepcid 20 mg Route: IVP; Site: right hand; rb3 17:50 Follow up: Response: No adverse reaction; the rash remains the same rb3 Disposition: 04/05/20 19:04 Discharged to Home. Impression: Urticaria. - Condition is Stable. - Discharge Instructions: Hives. - Prescriptions for Hydroxyzine HCl 25 mg Oral Tablet - take 1 tablet by ORAL route every 6 hours As needed; 30 tablet. Pepcid 20 mg Oral Tablet - take 1 tablet by ORAL route every 12 hours for 10 days; 20 tablet. - Medication Reconciliation Form, Thank You Letter, Antibiotic Education, Prescription Opioid Use, SBAR form form. - Follow up: Private Physician; When: 2 - 3 days; Reason: Recheck today's complaints, Continuance of care, Re-evaluation by your physician. - Notes: Please follow up with dermatology for further evaluation. Return to the ED if you develop increased shortness of breath, vomiting, or worsening symptoms. Addendum: 04/08/2020 07:12 Co-signature as Attending Physician, Willy Munoz MD. r n Signatures: Dispatcher [employer] EDMS Josse Prince PA PA jmm Nieto, Roman, MD MD rn Peyton Ponce RN RN aa5 Ridge Palomares RN RN rr5 Tash Stringer, RN RN rb3 Corrections: (The following items were deleted from the chart) 04/05 19:34 19:04 04/05/2020 19:04 Discharged to Home. Impression: Urticaria. Condition is Stable. rr5 Forms are SBAR form, Medication Reconciliation Form, Thank You Letter, Antibiotic Education, Prescription Opioid Use. Follow up: Private Physician; When: 2 - 3 days; Reason: Recheck today's complaints, Continuance of care, Re-evaluation by your physician. grey
--- NOTE | 2020-04-05 19:05 | ER ---
Nurse's Notes [facility] Name: Mary Napier Age: 34 yrs Sex: Female : 1985 Arrival Date: 04/05/2020 Time: 16:24 Bed 18 Private MD: Diagnosis: Urticaria Presentation: 04/05 16:35 Chief complaint: Patient states: "I was here last Monday for hives and they gave me aa5 steroids but they never got better, today I just have hives all over, my throat feel tight, I feel short of breath, and I vomited once". Pt also reports she woke up with a cough and runny nose today. 16:35 Coronavirus screen: cough unrelated to allergies, runny nose, shortness of breath, aa5 vomiting. Ebola Screen: Patient negative for fever greater than or equal to 101.5 degrees Fahrenheit, and additional compatible Ebola Virus Disease symptoms. Risk Assessment: Do you want to hurt yourself or someone else? Patient reports no desire to harm self or others. Onset of symptoms was March 2020. 16:35 Method Of Arrival: Ambulatory aa5 16:35 Initial Sepsis Screen: Does the patient meet any 2 criteria? No. Patient's initial aa5 sepsis screen is negative. Does the patient have a suspected source of infection? No. Patient's initial sepsis screen is negative. 16:35 Acuity: SOFIA 2 aa5 Historical: - Allergies: 16:37 Amoxicillin; aa5 - Home Meds: 16:37 None [Active]; aa5 - PMHx: 16:37 None; aa5 - PSHx: 16:37 None; aa5 Screenin:39 Abuse screen: Denies threats or abuse. Nutritional screening: No deficits noted. rb3 Tuberculosis screening: No symptoms or risk factors identified. Fall Risk None identified. Assessment: 16:39 General: Appears uncomfortable, Behavior is calm, cooperative, Denies fever. Neuro: rb3 Level of Consciousness is awake, alert, obeys commands, Oriented to person, place, time, situation. Cardiovascular: Capillary refill < 3 seconds. Respiratory: Airway is patent Respiratory effort is even, unlabored, Respiratory pattern is regular, symmetrical. GI: Reports vomiting. : No signs and/or symptoms were reported regarding the genitourinary system. Derm: Rash noted that is itchy, red, on Generalized entire body covered with the rash. Musculoskeletal: Range of motion: intact in all extremities. 17:37 Reassessment: Patient appears in no apparent distress at this time. Neuro: Level of rb3 Consciousness is awake, alert, obeys commands, Oriented to person, place, time, situation. Respiratory: Airway is patent Respiratory effort is even, unlabored, Respiratory pattern is regular, symmetrical. Derm: Reports itching. 18:13 Reassessment: Patient appears in no apparent distress at this time. No changes from rb3 previously documented assessment. 18:30 Reassessment: Patient appears in no apparent distress at this time. Pt. reports that rb3 the itching has gotten better. The rash is not as red as it was initially. Vital Signs: 16:35 BP 135 / 82; Pulse 81; Resp 18 S; Temp 98.5(O); Pulse Ox 100% on R/A; aa5 17:00 BP 135 / 82; Pulse 84; Resp 16; Pulse Ox 100% ; rb3 17:51 BP 123 / 58; Pulse 85; Resp 19; Pulse Ox 100% ; rb3 ED Course: 16:24 Patient arrived in ED. ag5 16:35 Arm band placed on Patient placed in an exam room, on a stretcher. aa5 16:38 Josse Prince PA is PHCP. jm 16:38 Willy Munoz MD is Attending Physician. jmm 16:39 Patient has correct armband on for positive identification. Bed in low position. Call rb3 light in reach. Side rails up X 1. Pulse ox on. NIBP on. Warm blanket given. 16:43 Triage completed. aa5 16:45 Tash Stringer, RN is Primary Nurse. rb3 17:30 Missed attempt(s): 22 gauge in right forearm. Bleeding controlled, band aid applied, aa5 catheter tip intact. 17:33 Initial lab(s) drawn, by me, sent to lab. Inserted saline lock: 24 gauge in right hand, aa5 using aseptic technique. Blood collected. 19:23 No provider procedures requiring assistance completed. IV discontinued, intact, rb3 bleeding controlled, No redness/swelling at site. Pressure dressing applied. Administered Medications: 17:20 Drug: EPINEPHrine 1mg/mL 1:1,000 0.4 ml Route: Sub-Q; Site: left upper arm; aa5 17:35 Follow up: Response: No adverse reaction; the rash remain the same rb3 17:34 Drug: NS 0.9% 1000 ml Route: IV; Rate: 1 bolus; Site: right hand; rb3 17:34 Drug: diphenhydrAMINE 50 mg Route: IVP; Site: right hand; rb3 18:32 Follow up: Response: No adverse reaction; the rash remained the same rb3 17:34 Drug: Pepcid 20 mg Route: IVP; Site: right hand; rb3 17:50 Follow up: Response: No adverse reaction; the rash remains the same rb3 Intake: Outcome: 19:04 Discharge ordered by MD. edmonds 19:34 Patient left the ED. rr5 Signatures: Josse Prince PA PA jmm Calderon, Audri, RN RN aa5 Ridge Palomares RN RN rr5 Albertina Castro 5 Tash Stringer, RN RN rb3 Corrections: (The following items were deleted from the chart) 18:04 16:35 Acuity: SOFIA 3 aa5 aa5
[2020-04-05 19:42] VITALS: O2SAT 100
[2020-04-05 19:43] VITALS: TEMP 98.5
[2020-04-05 19:44] VITALS: BP 123/58
== END 2020-04-05 19:34 | disposition home or self-care (01) ==
LOC: ER 16:22
DX: L50.9 Urticaria, unspecified (principal); R11.10 Vomiting, unspecified; Z88.1 Allergy status to other antibiotic agents
CPT/HCPCS: 36415; 80053; 85025; 86308; 96372; 96374; 96375; 99284; J0171; J1200; J7030

== ENCOUNTER 2020-09-29 23:21 | Emergency (ER) | payer SELFPAY ==
[2020-09-30] MEDS ORDERED: ONDANSETRON 4 MG (ODT) TAB ONE (01:10)
[2020-09-30 03:57] LABS: Absolute Lymphocytes (CBC) 1.2 K/uL (0.7-4.9); Basophils % 0.6 % (0-1.3); Lymphocytes % 14.2 % (15.3-44.8); RBC Red Blood Cell Count 4.91 M/uL (3.86-4.86)
[2020-09-30 04:33] LABS: Bilirubin Direct 0.3 mg/dL (0-0.2); Bilirubin Total 1.3 mg/dL (0.2-1.0); Potassium 3.8 mmol/L (3.5-5.1); Protein, Total 9.6 g/dL (6.4-8.2)
[2020-09-30] MEDS ORDERED: FAMOTIDINE 20 MG/2 ML VIAL IV ONE (05:07)
[2020-09-30] MEDS ORDERED: MAGNES/ALUMIN/SIMET 30ML UCUP ONE (05:07)
[2020-09-30] MEDS ORDERED: LIDOCAINE VISCOUS 2% SOLN 15 ML UDC ONE (05:07)
[2020-09-30] MEDS ORDERED: NA CHLORIDE 0.9% 1,000 ML ONE (05:07)
[2020-09-30 06:20] LABS: Urine Blood Negative (Negative); Urine Glucose 3+ (Negative); Urine Protein Negative (Negative); Urine Specific Gravity 1.015 (1.005-1.030)
[2020-09-30] MEDS ORDERED: ONDANSETRON 4 MG/2 ML VIAL ONE (06:31)
--- NOTE | 2020-09-30 07:08 | RAD REPORT ---
EXAM DESCRIPTION: CTAbdomen Pelvis W Contrast - 09/30/2020 6:49 am CLINICAL HISTORY: Abdominal pain. diarrhea;Nausea / vomiting COMPARISON: No comparisons TECHNIQUE: Biphasic CT imaging of the abdomen and pelvis was performed with 100 ml non-ionic IV cont rast. All CT scans are performed using dose optimization technique as appropriate and may include automated exposure control or mA/KV adjustment according to patient size. FINDINGS: The lung bases are clear. Cholecystectomy. No focal liver lesions are identified. Spleen is unremarkable. Adrenal glands are un remarkable. Pancreas unremarkable. No hydronephrosis, stones, or renal mass is identified. Small fat containing ventral hernia. Fluid collections are present within the region of the cervix. These may r epresent nabothian cysts. Some contain gas. Normal appendix. No bowel obstruction, free air, free fluid or abscess. The appendix is normal. No evidence of signi ficant lymphadenopathy. No suspicious bony findings. IMPRESSION: No definite acute intra-abdominal abnormality. Fluid collections in the region of the ce rvix may represent complex nabothian cyst. Depending on the patient's clinical presentation, could co nsider either pelvic ultrasound or gynecologic referral.
[2020-09-30] MEDS ORDERED: ACETAMINOPHEN 325 MG TABLET ONE (07:51)
[2020-09-30] MEDS ORDERED: CIPROFLOXACIN HCL 500 MG TAB ONE (07:52)
--- NOTE | 2020-09-30 07:59 | EDPHYS ---
Physician Documentation [facility] Name: Mary Napier Age: 35 yrs Sex: Female : 1985 Arrival Date: 09/29/2020 Time: 23:23 Bed 19 Private MD: ED Physician Demarcus Hoffman HPI: 09/30 03:00 This 35 yrs old Female presents to ER via Ambulatory with complaints of mh7 Vomiting. 03:00 The patient presents to the emergency department with nausea, that is moderate, mh7 vomiting, that is intermittent, described as clear fluid, diarrhea, that is intermittent. Onset: The symptoms/episode began/occurred last night. Possible causes: unknown. The symptoms are aggravated by nothing. The symptoms are alleviated by nothing. Associated signs and symptoms: Pertinent negatives: abdominal pain, anorexia, belching, constipation, dysuria, fever, flatulence, GI bleeding, hematuria, vaginal discharge. Severity of symptoms: At their worst the symptoms were moderate in the emergency department the symptoms have improved moderately. 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 - Social history:: Smoking status: Patient denies any tobacco usage or history of. ROS: 09/30 03:00 Constitutional: Negative for fever, chills, and weight loss, Eyes: Negative for injury, mh7 pain, redness, and discharge, ENT: Negative for injury, pain, and discharge, Neck: Negative for injury, pain, and swelling, Cardiovascular: Negative for chest pain, palpitations, and edema, Respiratory: Negative for shortness of breath, cough, wheezing, and pleuritic chest pain, Back: Negative for injury and pain, : Negative for injury, bleeding, discharge, and swelling, MS/Extremity: Negative for injury and deformity, Skin: Negative for injury, rash, and discoloration, Neuro: Negative for headache, weakness, numbness, tingling, and seizure, Psych: Negative for depression, anxiety, suicide ideation, homicidal ideation, and hallucinations, Allergy/Immunology: Negative for hives, rash, and allergies, Endocrine: Negative for neck swelling, polydipsia, polyuria, polyphagia, and marked weight changes, Hematologic/Lymphatic: Negative for swollen nodes, abnormal bleeding, and unusual bruising. Exam: 03:00 Constitutional: This is a well developed, well nourished patient who is awake, alert, mh7 and in no acute distress. Head/Face: Normocephalic, atraumatic. Eyes: Pupils equal round and reactive to light, extra-ocular motions intact. Lids and lashes normal. Conjunctiva and sclera are non-icteric and not injected. Cornea within normal limits. Periorbital areas with no swelling, redness, or edema. Neck: Trachea midline, no thyromegaly or masses palpated, and no cervical lymphadenopathy. Supple, full range of motion without nuchal rigidity, or vertebral point tenderness. No Meningismus. Chest/axilla: Normal chest wall appearance and motion. Nontender with no deformity. No lesions are appreciated. Cardiovascular: Regular rate and rhythm with a normal S1 and S2. No gallops, murmurs, or rubs. Normal PMI, no JVD. No pulse deficits. Respiratory: Lungs have equal breath sounds bilaterally, clear to auscultation and percussion. No rales, rhonchi or wheezes noted. No increased work of breathing, no retractions or nasal flaring. Abdomen/GI: Soft, non-tender, with normal bowel sounds. No distension or tympany. No guarding or rebound. No evidence of tenderness throughout. Back: No spinal tenderness. No costovertebral tenderness. Full range of motion. Skin: Warm, dry with normal turgor. Normal color with no rashes, no lesions, and no evidence of cellulitis. MS/ Extremity: Pulses equal, no cyanosis. Neurovascular intact. Full, normal range of motion. Neuro: Awake and alert, GCS 15, oriented to person, place, time, and situation. Cranial nerves II-XII grossly intact. Motor strength 5/5 in all extremities. Sensory grossly intact. Cerebellar exam normal. Normal gait. Psych: Awake, alert, with orientation to person, place and time. Behavior, mood, and affect are within normal limits. Vital Signs: 09/29 23:37 BP 139 / 88; Pulse 105; Resp 16 S; Temp 98.6(O); Pulse Ox 99% on R/A; Weight 104.33 kg bb (R); Height 5 ft. 4 in. (162.56 cm) (R); Pain 0/10; 09/30 00:46 Pulse 107; Resp 24 S; Pulse Ox 99% on R/A; bb 04:00 BP 103 / 74; Pulse 94; Resp 18; Pulse Ox 98% on R/A; jb4 05:00 BP 110 / 78; Pulse 57; Resp 18; Pulse Ox 99% on R/A; jb4 06:00 BP 109 / 57; Pulse 51; Resp 18; Pulse Ox 99% ; jb4 09/29 23:37 Body Mass Index 39.48 (104.33 kg, 162.56 cm) bb MDM: 07:29 Patient medically screened. [facility] 07:56 Differential diagnosis: diverticulitis, viral gastroenteritis, gastroenteritis. Data [facility] reviewed: vital signs, nurses notes, lab test result(s), CBC, electrolytes, urinalysis, radiologic studies, CT scan. Counseling: I had a detailed discussion with the patient and/or guardian regarding: the historical points, exam findings, and any diagnostic results supporting the discharge/admit diagnosis, lab results, radiology results, the need for outpatient follow up, to return to the emergency department if symptoms worsen or persist or if there are any questions or concerns that arise at home. Response to treatment: the patient's symptoms have resolved after treatment, the patient's blood pressure is in an acceptable range, mental status has returned to baseline, the patient no longer shows bradycardia, the patient is not short of breath, the patient is not tachycardic, the patient's pain is gone, the patient's temperature has normalized. 09/30 00:50 Order name: Flu; Complete Time: 04:05 pm1 09/30 00:50 Order name: Strep; Complete Time: 04:05 pm1 09/30 01:54 Order name: Throat Culture [facility] 09/30 02:33 Order name: SARS-COV-2 RT PCR; Complete Time: 04:05 [facility] 09/30 03:29 Order name: Basic Metabolic Panel; Complete Time: 06:01 [facility] 09/30 03:29 Order name: CBC with Diff; Complete Time: 04:05 [facility] 09/30 03:29 Order name: Hepatic Function; Complete Time: 06:01 [facility] 09/30 03:29 Order name: Lipase; Complete Time: 06:01 jb4 09/30 06:10 Order name: CT Abd/Pelvis - IV Contrast Only; Complete Time: 07:20 7 09/30 06:20 Order name: Urine Dipstick-Ancillary; Complete Time: 07:20 [facility] 09/30 06:36 Order name: Urine --Ancillary (enter results) 2 09/30 07:21 Order name: Urine Culture [facility] 09/30 07:22 Order name: Urine Culture [facility] 09/30 03:29 Order name: IV Saline Lock; Complete Time: 03:51 jb4 09/30 03:29 Order name: Labs collected and sent; Complete Time: 03:51 [facility] 09/30 04:05 Order name: Urine Dipstick-Ancillary (obtain specimen); Complete Time: 06:27 [facility] 09/30 04:06 Order name: Urine Test (obtain specimen); Complete Time: 06:27 [facility] Administered Medications: 00:55 Drug: Zofran (Ondansetron) 4 mg Route: PO; 04:59 Drug: Pepcid (famotidine) 20 mg Route: IVP; Site: right forearm; jb4 06:26 Follow up: Response: No adverse reaction jb4 05:00 Drug: NS 0.9% 1000 ml Route: IV; Rate: 1000 ml; Site: right forearm; jb4 06:00 Follow up: Response: No adverse reaction; IV Status: Completed infusion; IV Intake: jb4 1000ml 05:00 Drug: GI Cocktail without - (Maalox Suspension 30 ml, Lidocaine Liquid 2 % 15 jb4 ml) Route: PO; 06:26 Follow up: Response: No adverse reaction jb4 06:15 Drug: Zofran (Ondansetron) 4 mg Route: IVP; Site: right forearm; jb4 07:35 Drug: Cipro (ciprofloxacin) 500 mg Route: PO; tr6 Disposition Summary: 09/30/20 07:58 Discharge Ordered Location: Home [facility] Problem: new [facility] Symptoms: have improved [facility] Condition: Stable [facility] Diagnosis - Diarrhea, unspecified 7 - UTI/ Urinary tract infection, site not specified [facility] Followup: [facility] - With: Private Physician - When: 1 - 2 days - Reason: Worsening of condition, Recheck today's complaints, Continuance of care, Re-evaluation by your physician Discharge Instructions: - Discharge Summary Sheet 7 - Diarrhea, Adult mh7 - Urinary Tract Infection, Adult, [id number] [facility] Forms: - Medication Reconciliation Form 7 - Thank You Letter 7 - Antibiotic Education mh7 - Prescription Opioid Use mh7 - Work release form eb Prescriptions: - ondansetron 4 mg Oral tablet,disintegrating - place 1 tablet by TRANSLINGUAL route every 8 hours As needed; 6 tablet; 7 Refills: 0, Product Selection Permitted - Cipro 500 mg Oral Tablet - take 1 tablet by ORAL route every 12 hours for 7 days; 14 tablet; Refills: 0, [facility] Product Selection Permitted - ondansetron 4 mg Oral tablet,disintegrating - take 1 tablet by ORAL route every 8 hours; 20 tablet; Refills: 0, Product [facility] Selection Permitted Signatures: Dispatcher [employer] EDMS Josse Prince PA PA jmm Ballard, Brenda, RN RN bb Alvin Ledezma NP COMPACT ASSEMBLER pm1 Raymundo Sherman RN RN jb4 Demarcus Hoffman MD MD 7 Sarah Sun RN RN tr6 Corrections: (The following items were deleted from the chart) 01:42 00:51 CORONAVIRUS+MR.LAB.BRZ ordered. EDVT EDMS
--- NOTE | 2020-09-30 07:59 | ER ---
Nurse's Notes [facility] Name: Mary Napier Age: 35 yrs Sex: Female : 1985 Arrival Date: 09/29/2020 Time: 23:23 Bed 19 Private MD: Diagnosis: Diarrhea, unspecified;UTI/ Urinary tract infection, site not specified Presentation: 09/29 23:37 Chief complaint: Patient states: she is not feeling well today has been vomiting x 3, bb feels like she is having difficulty breathing and her fingers and toes are numb symptoms started around 2030 tonight. Coronavirus screen: At this time, the client does not indicate any symptoms associated with coronavirus-19. Ebola Screen: No symptoms or risks identified at this time. Initial Sepsis Screen: Does the patient meet any 2 criteria? No. Patient's initial sepsis screen is negative. Does the patient have a suspected source of infection? No. Patient's initial sepsis screen is negative. Risk Assessment: Do you want to hurt yourself or someone else? Patient reports no desire to harm self or others. Onset of symptoms was September 29, 2020. 23:37 Method Of Arrival: Ambulatory 23:37 Acuity: SOFIA 3 bb Triage Assessment: 23:39 General: Appears in no apparent distress. Behavior is calm, cooperative. Pain: Denies bb pain. Neuro: Level of Consciousness is awake, alert, obeys commands, Oriented to person, place, time, situation. Cardiovascular: Capillary refill < 3 seconds Patient's skin is warm and dry. Respiratory: Respiratory effort is even, unlabored, Respiratory pattern is regular. GI: Reports lower abdominal pain, upper abdominal pain, diarrhea, vomiting. Derm: Skin is pink, warm \T\ dry. Musculoskeletal: Circulation, motion, and sensation intact. 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 - Social history:: Smoking status: Patient denies any tobacco usage or history of. Screenin/07 03:00 Abuse screen: Denies threats or abuse. Nutritional screening: No deficits noted. jb4 Tuberculosis screening: No symptoms or risk factors identified. Fall Risk None identified. Assessment: 00:45 Reassessment: pt assessed by Alvin Ledezma BIBLE READER in triage for complaint of throat bb closing. 03:00 General: Appears in no apparent distress. uncomfortable, Behavior is calm, cooperative, jb4 appropriate for age. Pain: Complains of pain in abdomen, throat Pain does not radiate. Pain currently is 4 out of 10 on a pain scale. Neuro: Level of Consciousness is awake, alert, obeys commands, Oriented to person, place, time, situation. Cardiovascular: Patient's skin is warm and dry. Respiratory: Airway is patent Respiratory effort is even, unlabored, Respiratory pattern is regular, symmetrical. GI: Abdomen is non-distended, obese, Reports diarrhea, nausea, vomiting. : No signs and/or symptoms were reported regarding the genitourinary system. EENT: Reports pain when swallowing. Derm: Skin is intact, Skin is pink, warm \T\ dry. Musculoskeletal: Circulation, motion, and sensation intact. Range of motion: intact in all extremities. 04:04 Reassessment: Patient appears in no apparent distress at this time. Patient and/or jb4 family updated on plan of care and expected duration. Pain level reassessed. Patient is alert, oriented x 3, equal unlabored respirations, skin warm/dry/pink. 05:00 Reassessment: Patient appears in no apparent distress at this time. Patient and/or jb4 family updated on plan of care and expected duration. Pain level reassessed. Patient is alert, oriented x 3, equal unlabored respirations, skin warm/dry/pink. 06:00 Reassessment: Patient appears in no apparent distress at this time. Patient and/or jb4 family updated on plan of care and expected duration. Pain level reassessed. Patient is alert, oriented x 3, equal unlabored respirations, skin warm/dry/pink. Vital Signs: 09/29 23:37 BP 139 / 88; Pulse 105; Resp 16 S; Temp 98.6(O); Pulse Ox 99% on R/A; Weight 104.33 kg bb (R); Height 5 ft. 4 in. (162.56 cm) (R); Pain 0/10; 09/30 00:46 Pulse 107; Resp 24 S; Pulse Ox 99% on R/A; bb 04:00 BP 103 / 74; Pulse 94; Resp 18; Pulse Ox 98% on R/A; jb4 05:00 BP 110 / 78; Pulse 57; Resp 18; Pulse Ox 99% on R/A; jb4 06:00 BP 109 / 57; Pulse 51; Resp 18; Pulse Ox 99% ; jb4 09/29 23:37 Body Mass Index 39.48 (104.33 kg, 162.56 cm) ED Course: 09/29 23:23 Patient arrived in ED. ag3 23:39 Triage completed. bb 23:39 Arm band placed on Patient placed in waiting room, Patient notified of wait time. bb 09/30 00:55 COVID swab sent to lab. Flu and/or RSV swab sent to lab. Strep swab sent to lab. bb 03:00 Patient has correct armband on for positive identification. Bed in low position. Call jb4 light in reach. Side rails up X 1. Pulse ox on. NIBP on. 03:16 Raymundo Sherman, RN is Primary Nurse. [facility] 03:26 Demarcus Hoffman MD is Attending Physician. [facility] 03:30 Initial lab(s) drawn, by ks, sent to lab. Inserted saline lock: 20 gauge in right jb4 forearm, using aseptic technique. Blood collected. 06:49 CT Abd/Pelvis - IV Contrast Only In Process Unspecified. EDMS 07:28 Josse Prince PA is PHCP. m 08:03 Primary Nurse role handed off by Raymundo Sherman RN 08:15 Sarah Sun, KOFI is Primary Nurse. tr6 08:15 No provider procedures requiring assistance completed. IV discontinued, intact, tr6 bleeding controlled, No redness/swelling at site. Pressure dressing applied. Administered Medications: 00:55 Drug: Zofran (Ondansetron) 4 mg Route: PO; bb 04:59 Drug: Pepcid (famotidine) 20 mg Route: IVP; Site: right forearm; jb4 06:26 Follow up: Response: No adverse reaction jb4 05:00 Drug: NS 0.9% 1000 ml Route: IV; Rate: 1000 ml; Site: right forearm; jb4 06:00 Follow up: Response: No adverse reaction; IV Status: Completed infusion; IV Intake: jb4 1000ml 05:00 Drug: GI Cocktail without - (Maalox Suspension 30 ml, Lidocaine Liquid 2 % 15 jb4 ml) Route: PO; 06:26 Follow up: Response: No adverse reaction jb4 06:15 Drug: Zofran (Ondansetron) 4 mg Route: IVP; Site: right forearm; jb4 07:35 Drug: Cipro (ciprofloxacin) 500 mg Route: PO; tr6 Intake: 06:00 IV: 1000ml; Total: 1000ml. jb4 Outcome: 07:58 Discharge ordered by . 7 08:15 Discharged to home ambulatory. tr6 08:15 Condition: stable 08:15 Discharge instructions given to patient, family, Instructed on discharge instructions, follow up and referral plans. no drinking with medication, medication usage, safety practices, Demonstrated understanding of instructions, follow-up care, medications, Prescriptions given X 08:31 Patient left the ED. tr6 Addendum: 10/05/2020 07:55 Addendum: Culture Results: Positive urine culture. No further action required. Bacteria s s sensitive to prescribed antibiotic. Signatures: Dispatcher [employer] EDMS Josse Prince PA PA jmm Ballard, Brenda RN RN Ellen Betancur RN RN ss Bryson, James, RN RN jb4 Adelaida Latif Alice ag3 Holmes, Maurice, MD MD 7 Sarah Sun RN RN tr6 Corrections: (The following items were deleted from the chart) 09/30 05:00 04:59 Pepcid (famotidine) 20 mg IVP in right antecubital jb4 jb4
[2020-09-30 08:39] VITALS: TEMP 98.6
[2020-09-30 08:41] LABS: Urine Specific Gravity/Preg 1.015 (1.005-1.030)
[2020-09-30 08:45] VITALS: O2SAT 99
[2020-09-30 08:46] VITALS: BP 109/57
== END 2020-09-30 08:31 | disposition home or self-care (01) ==
LOC: ER 23:21
DX: N39.0 Urinary tract infection, site not specified (principal); R19.7 Diarrhea, unspecified; Z20.822 Contact with and (suspected) exposure to COVID-19; Z88.1 Allergy status to other antibiotic agents
CPT/HCPCS: 36415; 74177; 80048; 80076; 81003; 81025; 83690; 85025; 87070; 87077; 87081; 87086; 87088; 87186; 87804; 96361; 96374; 96375; 99284; J2405; J7030; Q9967; U0003

== ENCOUNTER 2021-02-13 12:24 | Emergency (ER) | payer SELFPAY ==
[2021-02-13] MEDS ORDERED: ONDANSETRON 4 MG (ODT) TAB ONE (13:11)
[2021-02-13 14:00] LABS: SARS-COV-2 RT PCR NEGATIVE (NEGATIVE)
--- NOTE | 2021-02-13 14:33 | ER ---
[facility] Name: Mary Napier Age: 35 yrs Sex: Female : 1985 Arrival Date: 02/13/2021 Time: 12:26 Bed 20 Private MD: Diagnosis: Streptococcal pharyngitis Presentation: 02/13 12:30 Chief complaint: Patient states: Flu-like symptoms: Patient c/o persistent cough, runny sl2 nose, sore throat and vomiting - onset 3 days ago. 12:30 Coronavirus screen: Vaccine status: Patient reports receiving the 2nd dose of the covid sl2 vaccine. Ebola Screen: Patient negative for fever greater than or equal to 101.5 degrees Fahrenheit, and additional compatible Ebola Virus Disease symptoms Patient denies exposure to infectious person. Patient denies travel to an Ebola-affected area in the 21 days before illness onset. No symptoms or risks identified at this time. Initial Sepsis Screen: Does the patient meet any 2 criteria? No. Patient's initial sepsis screen is negative. Does the patient have a suspected source of infection? No. Patient's initial sepsis screen is negative. Risk Assessment: Do you want to hurt yourself or someone else? Patient reports no desire to harm self or others. 12:30 Method Of Arrival: Ambulatory sl2 12:30 Acuity: SOFIA 3 sl2 12:30 Onset of symptoms was February 10, 2021. 2 Triage Assessment: 12:40 General: Appears uncomfortable, well groomed, Behavior is calm, cooperative, sl2 appropriate for age, Reports cough, runny nose, sore throat and vomiting x 3 days. Pain: Complains of pain in Generalized body ache Pain currently is 3 out of 10 on a pain scale. at worst was 6 out of 10 on a pain scale. EENT: Reports persistent cough, runny nose, sore throat and vomiting . 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 - Social history:: Smoking status: Patient denies any tobacco usage or history of. Screenin:46 Abuse screen: Denies threats or abuse. Denies injuries from another. Nutritional sl2 screening: No deficits noted. Tuberculosis screening: No symptoms or risk factors identified. Never had TB. Possible symptoms: None Risk factors: None. Fall Risk None identified. No fall in past 12 months (0 pts). No secondary diagnosis (0 pts). No IV (0 pts). Ambulatory Aid- None/Bed Rest/Nurse Assist (0 pts). Gait- Normal/Bed Rest/Wheelchair (0 pts). Assessment: 12:46 Respiratory: Airway is patent Trachea midline Respiratory effort is even, unlabored, sl2 Respiratory pattern is regular, symmetrical, Breath sounds are clear bilaterally. EENT: Throat is pink Reports sore throat . Vital Signs: 12:30 BP 129 / 63; Pulse 88; Resp 18; Temp 98.9(O); Pulse Ox 99% on R/A; Weight 99.79 kg; sl2 Height 5 ft. 4 in. (162.56 cm); 13:17 BP 104 / 61; Pulse 100; Resp 18; Pulse Ox 97% on R/A; sl2 14:00 BP 106 / 55; Pulse 78; Resp 18; Temp 98.2; Pulse Ox 99% ; sl2 14:30 BP 114 / 68; Pulse 98; Resp 18; Temp 99.9; Pulse Ox 99% ; sl2 12:30 Body Mass Index 37.76 (99.79 kg, 162.56 cm) 2 ED Course: 12:26 Patient arrived in ED. ds1 12:29 Josse Prince PA is PHCP. [facility] 12:29 Willy Munoz MD is Attending Physician. [facility] 12:36 Thao Antonio, KOFI is Primary Nurse. 2 12:36 Patient has correct armband on for positive identification. Bed in low position. Call [facility] light in reach. Side rails up X 1. Warm blanket given. quality assurance monitor body on. Pulse ox on. NIBP on. 12:39 Triage completed. sl2 12:40 Arm band placed on right wrist. sl2 12:46 No provider procedures requiring assistance completed. Patient did not have IV access 2 during this emergency room visit. 13:15 COVID swab sent to lab. Flu and/or RSV swab sent to lab. 5 Administered Medications: 13:14 Drug: Zofran (Ondansetron) 4 mg Route: PO; sl2 14:00 Follow up: Response: No adverse reaction; Nausea is decreased sl2 Outcome: 14:33 Discharge ordered by MD. edmonds 14:45 Discharged to home ambulatory. sl2 14:45 Condition: stable 14:45 Discharge instructions given to patient, Instructed on discharge instructions, follow up and referral plans. medication usage, Demonstrated understanding of instructions, follow-up care, medications, Prescriptions given X 2. 14:59 Patient left the ED. sl2 Signatures: Josse Prince PA PA jmm Sanford, Demi ds1 Sarah Rodas [facility] Thao Antonio RN RN sl2 Corrections: (The following items were deleted from the chart) 12:46 12:30 Acuity: SOFIA 2 sl2 sl2
--- NOTE | 2021-02-13 14:34 | EDPHYS ---
Physician Documentation [facility] Name: Mary Napier Age: 35 yrs Sex: Female : 1985 Arrival Date: 02/13/2021 Time: 12:26 Bed 20 Private MD: ED Physician Willy Munoz HPI: 02/13 12:43 This 35 yrs old Female presents to ER via Ambulatory with complaints of Cough, jmm Sore Throat, Vomiting. 12:43 The patient or guardian reports cough. Onset: The symptoms/episode began/occurred jmm gradually, 3 day(s) ago. Modifying factors: The symptoms are alleviated by nothing, the symptoms are aggravated by nothing. This is a 35-year-old female with no chronic medical conditions that presents to the emergency department with complaints of sore throat cough vomiting beginning approximately 3 days ago. Patient states she is immunized for coronavirus. 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 - Social history:: Smoking status: Patient denies any tobacco usage or history of. ROS: 12:43 Constitutional: Positive for body aches, chills, fever. jmm 12:43 Respiratory: Positive for cough. 12:43 Abdomen/GI: Positive for vomiting. 12:43 All other systems are negative. Exam: 12:43 Constitutional: This is a well developed, well nourished patient who is awake, alert, jmm and in no acute distress. Head/Face: atraumatic. Eyes: EOMI, no conjunctival erythema appreciated Neck: Trachea midline, Supple Chest/axilla: Normal chest wall appearance and motion. Cardiovascular: Regular rate and rhythm. No edema appreciated 12:43 Abdomen/GI: Non distended, soft Back: Normal ROM Skin: General appearance color normal MS/ Extremity: Moves all extremities, no obvious deformities appreciated, no edema noted to the lower extremities Neuro: Awake and alert, normal gait Psych: Behavior is normal, Mood is normal, Patient is cooperative and pleasant 12:43 ENT: Posterior pharynx: erythema, that is moderate. Vital Signs: 12:30 BP 129 / 63; Pulse 88; Resp 18; Temp 98.9(O); Pulse Ox 99% on R/A; Weight 99.79 kg; sl2 Height 5 ft. 4 in. (162.56 cm); 13:17 BP 104 / 61; Pulse 100; Resp 18; Pulse Ox 97% on R/A; sl2 14:00 BP 106 / 55; Pulse 78; Resp 18; Temp 98.2; Pulse Ox 99% ; sl2 14:30 BP 114 / 68; Pulse 98; Resp 18; Temp 99.9; Pulse Ox 99% ; sl2 12:30 Body Mass Index 37.76 (99.79 kg, 162.56 cm) sl2 MDM: 12:43 Patient medically screened. [facility] 14:32 Data reviewed: vital signs, nurses notes. Counseling: I had a detailed discussion with hayden the patient and/or guardian regarding: the historical points, exam findings, and any diagnostic results supporting the discharge/admit diagnosis, lab results, the need for outpatient follow up, to return to the emergency department if symptoms worsen or persist or if there are any questions or concerns that arise at home. ED course: Patient is alert nontoxic in appearance NAD. Will treat with oral antibiotics and otherwise given strict return precautions. Patient understood and agrees plan of care.. 02/13 12:47 Order name: Strep; Complete Time: 13:43 [facility] 02/13 13:13 Order name: COVID-19/FLU A+B; Complete Time: 14:02 EDMS Administered Medications: 13:14 Drug: Zofran (Ondansetron) 4 mg Route: PO; 2 14:00 Follow up: Response: No adverse reaction; Nausea is decreased 2 Disposition: 16:35 Co-signature as Attending Physician, Willy Munoz MD I agree with the assessment and rn plan of care. Attestation: The patient's history, exam findings, diagnostics, and a summary of any interventions or procedures was reviewed in detail with Josse TUCKER. Disposition Summary: 02/13/21 14:33 Discharge Ordered Location: Home [facility] Condition: Stable [facility] Diagnosis - Streptococcal pharyngitis [facility] Followup: [facility] - With: Private Physician - When: 2 - 3 days - Reason: Recheck today's complaints, Continuance of care, Re-evaluation by your physician Discharge Instructions: - Discharge Summary Sheet [facility] - Strep Throat, Adult m Forms: - Medication Reconciliation Form jmm - Thank You Letter jmm - Antibiotic Education jmm - Prescription Opioid Use [facility] - Work release form ss Prescriptions: - cefdinir 300 mg Oral capsule - take 1 capsule by ORAL route every 12 hours for 10 days; 20 capsule; Refills: jmm 0, Product Selection Permitted - promethazine-DM - spray 5 milliliter by ORAL route every 4-6 hours; 120 milliliter; Refills: 0, jmm Product Selection Permitted Signatures: Dispatcher [employer] EDMS Josse Prince PA PA jmm Nieto, Roman, MD MD rn Landell, Sophia, RN RN sl2 Corrections: (The following items were deleted from the chart) 13:13 12:47 SARS-COV-2 RT PCR+[id number].[email or web address] ordered. [facility] EDMS
[2021-02-13 15:07] VITALS: O2SAT 99
[2021-02-13 15:09] VITALS: BP 114/68; TEMP 99.9
== END 2021-02-13 14:59 | disposition home or self-care (01) ==
LOC: ER 12:24
DX: J02.0 Streptococcal pharyngitis (principal); Z88.1 Allergy status to other antibiotic agents
CPT/HCPCS: 0240U; 87081; 99284

== ENCOUNTER 2021-03-27 18:34 | Emergency (ER) | payer SELFPAY ==
--- NOTE | 2021-03-27 20:52 | EDPHYS ---
Physician Documentation [facility] Name: Mary Napier Age: 35 yrs Sex: Female : 1985 Arrival Date: 03/27/2021 Time: 18:37 Bed Waiting Private MD: ED Physician Demarcus Hoffman HPI: 03/27 20:58 This 35 yrs old Female presents to ER via Ambulatory with complaints of Lumps jr8 all over, Migraine. 20:58 The patient has not experienced similar symptoms in the past. The patient has not jr8 recently seen a physician. This is a 35-year-old female who presented to the emergency room with complaints of nonspecific rash to the head, face, chest. Patient stated that she is currently dealing with Covid as well. Denies any other symptoms at this time.. 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 - Social history:: Smoking status: Patient denies any tobacco usage or history of. ROS: 20:58 Eyes: Negative for injury, pain, redness, and discharge, ENT: Negative for injury, jr8 pain, and discharge, Neck: Negative for injury, pain, and swelling, Cardiovascular: Negative for chest pain, palpitations, and edema, Respiratory: Negative for shortness of breath, cough, wheezing, and pleuritic chest pain, Abdomen/GI: Negative for abdominal pain, nausea, vomiting, diarrhea, and constipation, Back: Negative for injury and pain, MS/Extremity: Negative for injury and deformity, Neuro: Negative for headache, weakness, numbness, tingling, and seizure. 20:58 Skin: Positive for pustules, rash. Exam: 20:58 Head/Face: Normocephalic, atraumatic. ENT: Nares patent. No nasal discharge, no jr8 septal abnormalities noted. Tympanic membranes are normal and external auditory canals are clear. Oropharynx with no redness, swelling, or masses, exudates, or evidence of obstruction, uvula midline. Mucous membranes moist. Neck: Trachea midline, no thyromegaly or masses palpated, and no cervical lymphadenopathy. Supple, full range of motion without nuchal rigidity, or vertebral point tenderness. No Meningismus. Cardiovascular: Regular rate and rhythm with a normal S1 and S2. No gallops, murmurs, or rubs. Normal PMI, no JVD. No pulse deficits. Respiratory: Lungs have equal breath sounds bilaterally, clear to auscultation and percussion. No rales, rhonchi or wheezes noted. No increased work of breathing, no retractions or nasal flaring. Abdomen/GI: Soft, non-tender, with normal bowel sounds. No distension or tympany. No guarding or rebound. No evidence of tenderness throughout. Back: No spinal tenderness. No costovertebral tenderness. Full range of motion. MS/ Extremity: Pulses equal, no cyanosis. Neurovascular intact. Full, normal range of motion. Neuro: Awake and alert, GCS 15, oriented to person, place, time, and situation. Cranial nerves II-XII grossly intact. Motor strength 5/5 in all extremities. Sensory grossly intact. 20:58 Skin: Patient has scabbed rash to the top of the head and face. Pustulous scabbed rash noted to the chest region. Overall mild in nature.. Vital Signs: 20:35 BP 118 / 54; Pulse 99; Resp 16 S; Temp 99.2(O); Pulse Ox 99% on R/A; Weight 102.06 kg bb (R); Height 5 ft. 4 in. (162.56 cm) (R); Pain 9/10; 20:35 Body Mass Index 38.62 (102.06 kg, 162.56 cm) bb MDM: 20:[address] [facility] 20:50 Data reviewed: vital signs, nurses notes, and as a result, I will discharge patient. [facility] Data interpreted: Pulse oximetry: on room air is 99 %. Interpretation: normal. Counseling: I had a detailed discussion with the patient and/or guardian regarding: the historical points, exam findings, and any diagnostic results supporting the discharge/admit diagnosis, the need for outpatient follow up, a family practitioner, to return to the emergency department if symptoms worsen or persist or if there are any questions or concerns that arise at home. Administered Medications: No medications were administered Disposition: 03/28 06:18 Co-signature as Attending Physician, Demarcus Hoffman MD. [email or web address] Disposition Summary: 03/27/21 20:51 Discharge Ordered Location: Home jr8 Problem: new jr8 Symptoms: have improved jr8 Condition: Stable jr8 Diagnosis - Local infection of the skin and subcutaneous tissue, unspecified jr8 Followup: jr8 - With: Private Physician - When: 5 - 6 days - Reason: Recheck today's complaints, Continuance of care, Re-evaluation by your physician Discharge Instructions: - Discharge Summary Sheet jr8 - Rash, Adult jr8 Forms: - Medication Reconciliation Form jr8 - Thank You Letter jr8 - Antibiotic Education jr8 - Prescription Opioid Use jr8 Prescriptions: - mupirocin 2 % Topical ointment - apply 1 application by TOPICAL route every 12 hours; 1 tube; Refills: 0, jr8 Product Selection Permitted - Bactrim DS 800-160 mg Oral Tablet - take 1 tablet by ORAL route every 12 hours for 10 days; 20 tablet; Refills: 0, jr8 Product Selection Permitted Signatures: Charisma Crawford RN RN Souleymane Frederick PA PA jr8 Demarcus Hoffman MD MD mh7
--- NOTE | 2021-03-27 20:52 | ER ---
Nurse's Notes [facility] Name: Mary Napier Age: 35 yrs Sex: Female : 1985 Arrival Date: 03/27/2021 Time: 18:37 Bed Waiting Private MD: Diagnosis: Local infection of the skin and subcutaneous tissue, unspecified Presentation: 03/27 20:35 Chief complaint: Patient states: she was diagnosed with Covid on 04/20 then on bb she woke up with a lump under her right ear which is getting bigger and is painful, also has lump on right ankle since this morning, also has pustules on her scalp since Monday, and sores on her body. Coronavirus screen: Client reports previous positive COVID test result. Date of collection: March 20, 2021. Ebola Screen: No symptoms or risks identified at this time. Initial Sepsis Screen: Does the patient meet any 2 criteria? No. Patient's initial sepsis screen is negative. Does the patient have a suspected source of infection? No. Patient's initial sepsis screen is negative. Risk Assessment: Do you want to hurt yourself or someone else? Patient reports no desire to harm self or others. Onset of symptoms was March 25, 2021. 20:35 Method Of Arrival: Ambulatory bb 20:35 Acuity: SOFIA 3 bb Triage Assessment: 20:39 General: Appears in no apparent distress. uncomfortable, Behavior is calm, cooperative. bb Pain: Complains of pain in right jaw. Neuro: Level of Consciousness is awake, alert, obeys commands, Oriented to person, place, time, situation. Cardiovascular: Capillary refill < 3 seconds Patient's skin is warm and dry. Respiratory: Airway is patent Respiratory effort is even, unlabored. GI: No signs and/or symptoms were reported involving the gastrointestinal system. Derm: Skin is pink, warm \T\ dry. swelling, induration under right ear. Musculoskeletal: Circulation, motion, and sensation intact. Reports pain in right ankle. 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 - Social history:: Smoking status: Patient denies any tobacco usage or history of. Screenin:56 Abuse screen: Denies threats or abuse. Nutritional screening: No deficits noted. bb Tuberculosis screening: No symptoms or risk factors identified. Fall Risk None identified. Assessment: 20:56 Reassessment: No changes from previously documented assessment. Patient is alert, bb oriented x 3, equal unlabored respirations, skin warm/dry/pink. pt seen in triage by Souleymane TUCKER and discharged with prescriptions pt verbalized understanding of and agrees to plan of care discharge instructions given pt ambulated with steady gait to exit. Vital Signs: 20:35 BP 118 / 54; Pulse 99; Resp 16 S; Temp 99.2(O); Pulse Ox 99% on R/A; Weight 102.06 kg bb (R); Height 5 ft. 4 in. (162.56 cm) (R); Pain 9/10; 20:35 Body Mass Index 38.62 (102.06 kg, 162.56 cm) bb ED Course: 18:37 Patient arrived in ED. ds1 20:39 Triage completed. bb 20:39 Arm band placed on Patient placed in waiting room, Patient notified of wait time. bb 20:50 Souleymane Galvez PA is PHCP. jr8 20:50 Demarcus Hoffman MD is Attending Physician. jr8 20:56 Patient has correct armband on for positive identification. bb 20:56 No provider procedures requiring assistance completed. Patient did not have IV access bb during this emergency room visit. Administered Medications: No medications were administered Outcome: 20:51 Discharge ordered by . jr8 20:56 Discharged to home bb 20:56 Condition: stable 20:56 Discharge instructions given to patient, Instructed on discharge instructions, follow up and referral plans. medication usage, Demonstrated understanding of instructions, follow-up care, medications, Prescriptions given X 2. 20:58 Patient left the ED. bb Signatures: Verna Mckeon ds1 Charisma Crawford RN RN bb Souleymane Galvez PA PA jr8
[2021-03-27 21:02] VITALS: BP 118/54; TEMP 99.2; O2SAT 99
== END 2021-03-27 20:58 | disposition home or self-care (01) ==
LOC: ER 18:34
DX: R21 Rash and other nonspecific skin eruption (principal); L08.9 Local infection of the skin and subcutaneous tissue, unspecified; Z88.1 Allergy status to other antibiotic agents
CPT/HCPCS: 99282

== ENCOUNTER 2021-04-08 12:34 | Emergency (ER) | payer SELFPAY ==
[2021-04-08] MEDS ORDERED: ACETAMINOPHEN 500 MG TAB ONE (12:52)
[2021-04-08 14:10] LABS: SARS-COV-2 RT PCR NEGATIVE (NEGATIVE)
--- NOTE | 2021-04-08 16:41 | ER ---
Nurse's Notes [facility] Name: Mary Napier Age: 35 yrs Sex: Female : 1985 Arrival Date: 04/08/2021 Time: 12:35 Bed 24 Private MD: Diagnosis: Tinea barbae and tinea capitis;Acute pharyngitis, unspecified Presentation: 04/08 12:42 Chief complaint: Patient states: Patient states she has hives all over her body and her 5 lips are "poofy, and my throat is closing up" and she states "I dont feel good".. Pt states she has fever of 102 and took Benadryl ... weakness, cough - tested positive but was negative yesterday ([facility] Coronavirus screen: Vaccine status: Patient reports receiving the 2nd dose of the covid vaccine. Client denies travel out of the [place] in the last 14 days. Ebola Screen: Patient negative for fever greater than or equal to 101.5 degrees Fahrenheit, and additional compatible Ebola Virus Disease symptoms Patient denies exposure to infectious person. Patient denies travel to an Ebola-affected area in the 21 days before illness onset. Initial Sepsis Screen: Does the patient meet any 2 criteria? Temp <36.0*C (96.8*F)) or > 38.3*C (100.9*F). HR > 90 bpm. Does the patient have a suspected source of infection? Yes:. Risk Assessment: Do you want to hurt yourself or someone else? Patient reports no desire to harm self or others. Onset of symptoms was April 07, 2021. 12:42 Method Of Arrival: Ambulatory [facility] 12:42 Acuity: SOFIA 3 5 13:26 Anaphylaxis evaluation, no signs or symptoms of anaphylaxis were noted. ab2 Triage Assessment: 12:47 General: Appears uncomfortable, obese, unkempt, Behavior is calm, cooperative, jh5 appropriate for age. Pain: Complains of pain in throat. 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 Historical: - Allergies: 12:47 Amoxicillin; 5 - Home Meds: 12:47 None [Active]; 5 - PMHx: 12:47 None; jh5 - Immunization history:: Adult Immunizations up to date. - Social history:: Smoking status: Patient denies any tobacco usage or history of. Screenin:26 Abuse screen: Denies threats or abuse. Denies injuries from another. Nutritional ab2 screening: No deficits noted. Tuberculosis screening: No symptoms or risk factors identified. Fall Risk None identified. Assessment: 13:24 General: Appears in no apparent distress. Behavior is calm, cooperative, appropriate ab2 for age. Pain: Complains of pain in generalized body pain Pain currently is 9 out of 10 on a pain scale. Quality of pain is described as aching, Pain began 2-3 days ago. Neuro: No deficits noted. Level of Consciousness is awake, alert, obeys commands, Oriented to person, place, time, situation, Appropriate for age [employer] are equal bilaterally Moves all extremities. Gait is shuffling, Speech is normal, Facial symmetry appears normal. Cardiovascular: No deficits noted. Denies chest pain, shortness of breath, Heart tones S1 S2 present Patient's skin is warm and dry. Chest pain is denied. Respiratory: Airway is patent Respiratory effort is even, unlabored, Breath sounds are clear bilaterally. GI: Abdomen is round non-distended, Bowel sounds present X 4 quads. Abd is soft and non tender X 4 quads. Reports nausea. : No deficits noted. No signs and/or symptoms were reported regarding the genitourinary system. EENT: No deficits noted. No signs and/or symptoms were reported regarding the EENT system. Derm: Skin is clammy, Skin temperature is warm. Musculoskeletal: No deficits noted. No signs and/or symptoms reported regarding the musculoskeletal system. Vital Signs: 12:42 BP 111 / 54; Pulse 113; Resp 18; Temp 102.6; Pulse Ox 94% ; Weight 102.06 kg; Height 5 jh5 ft. 4 in. (162.56 cm); Pain 10/10; 14:23 BP 102 / 51; Pulse 89; Resp 18; Pulse Ox 98% on R/A; ab2 15:00 BP 106 / 57; Pulse 93; Resp 17; Pulse Ox 100% on R/A; ab2 16:00 BP 127 / 81; Pulse 94; Resp 17; Pulse Ox 100% on R/A; ab2 16:59 BP 121 / 77; Pulse 90; Resp 16; Pulse Ox 99% on R/A; ab2 12:42 Body Mass Index 38.62 (102.06 kg, 162.56 cm) [facility] ED Course: 12:35 Patient arrived in ED. as 12:[address] [facility] 12:47 Arm band placed on left wrist. [facility] 12:50 Josse Prince PA is PHCP. [facility] 12:50 Griselda Aleman MD is Attending Physician. [facility] 13:26 Patient has correct armband on for positive identification. Bed in low position. Call ab2 light in reach. Side rails up X2. Adult w/ patient. 13:26 No provider procedures requiring assistance completed. ab2 13:34 Julio C Kyle, RN is Primary Nurse. bp 16:59 Patient did not have IV access during this emergency room visit. ab2 Administered Medications: 12:53 Drug: Tylenol 1000 mg Route: PO; [facility] Outcome: 16:40 Discharge ordered by MD. [facility] 16:59 Discharged to home ambulatory. ab2 16:59 Condition: good 16:59 Discharge instructions given to patient, Instructed on discharge instructions, follow up and referral plans. medication usage, Demonstrated understanding of instructions, follow-up care, medications, Prescriptions given X 2. 17:00 Patient left the ED. ab2 Signatures: Josse Prince PA PA jmm Martinez, Amelia as Peltier, Brian, RN RN Dorothea Monte, RN RN [facility] Zac Mcgarry ab2
--- NOTE | 2021-04-08 16:41 | EDPHYS ---
Physician Documentation [facility] Name: Mary Napier Age: 35 yrs Sex: Female : 1985 Arrival Date: 04/08/2021 Time: 12:35 Bed 24 Private MD: ED Physician Griselda Aleman HPI: 04/08 12:50 This 35 yrs old Female presents to ER via Ambulatory with complaints of jmm Allergic Reaction. 12:50 The patient or guardian reports cough. Onset: The symptoms/episode began/occurred jmm gradually, 2 day(s) ago. Modifying factors: The symptoms are alleviated by nothing. the symptoms are aggravated by nothing. Associated signs and symptoms: Pertinent positives: sore throat. This is a 35-year-old female with no known medical problems that presents emergency department with complaints of cough and sore throat and fever beginning approximately 2 days ago. Patient states having similar symptoms when she had developed coronavirus last month. Patient states that she just returned back to work from quarantine.. 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 - Social history:: Smoking status: Patient denies any tobacco usage or history of. ROS: 12:50 Constitutional: Positive for body aches, fever. jmm 12:50 ENT: Positive for sore throat. 12:50 Respiratory: Positive for cough. 12:50 All other systems are negative. Exam: 12:50 Head/Face: atraumatic. Eyes: EOMI, no conjunctival erythema appreciated jmm 12:50 Chest/axilla: Normal chest wall appearance and motion. Cardiovascular: Regular rate and rhythm. No edema appreciated Respiratory: Normal respirations, no respiratory distress appreciated Abdomen/GI: Non distended, soft Back: Normal ROM 12:50 Constitutional: The patient appears in no acute distress, alert, awake. 12:50 ENT: Posterior pharynx: Tonsils: bilaterally enlarged, with erythema, erythema, that is moderate. 12:50 Skin: tinea capitas noted to the scalp. 12:50 Neuro: Orientation: is normal, Mentation: is normal, Memory: is normal. 12:50 Psych: Behavior/mood is pleasant, cooperative. Vital Signs: 12:42 BP 111 / 54; Pulse 113; Resp 18; Temp 102.6; Pulse Ox 94% ; Weight 102.06 kg; Height 5 [facility] ft. 4 in. (162.56 cm); Pain 10/10; 14:23 BP 102 / 51; Pulse 89; Resp 18; Pulse Ox 98% on R/A; ab2 15:00 BP 106 / 57; Pulse 93; Resp 17; Pulse Ox 100% on R/A; ab2 16:00 BP 127 / 81; Pulse 94; Resp 17; Pulse Ox 100% on R/A; ab2 16:59 BP 121 / 77; Pulse 90; Resp 16; Pulse Ox 99% on R/A; ab2 12:42 Body Mass Index 38.62 (102.06 kg, 162.56 cm) [facility] MDM: 14:14 Patient medically screened. [facility] 16:38 Data reviewed: vital signs, nurses notes. Counseling: I had a detailed discussion with grey the patient and/or guardian regarding: the historical points, exam findings, and any diagnostic results supporting the discharge/admit diagnosis, lab results, the need for outpatient follow up, to return to the emergency department if symptoms worsen or persist or if there are any questions or concerns that arise at home. ED course: Patient is alert and non toxic in appearance in the ED. No signs of resp distress. Patient advised to follow up with pcp and otherwise given strict return precautions. patient understood and agrees with the plan of care. . 04/08 12:49 Order name: Strep; Complete Time: 14:20 [facility] 04/08 12:51 Order name: Group A Streptococcus Rapid Sc; Complete Time: 14:20 EDIA 04/08 13:18 Order name: Throat Culture [facility] Administered Medications: 12:53 Drug: Tylenol 1000 mg Route: PO; [facility] Disposition Summary: 04/08/21 16:40 Discharge Ordered Location: Home [facility] Condition: Stable [facility] Diagnosis - Tinea barbae and tinea capitis jmm - Acute pharyngitis, unspecified [facility] Followup: [facility] - With: Private Physician - When: 1 - 2 days - Reason: Recheck today's complaints, Continuance of care, Re-evaluation by your physician Discharge Instructions: - Discharge Summary Sheet [facility] - Scalp Ringworm, Pediatric jmm - Sore Throat jm Forms: - Medication Reconciliation Form jmm - Thank You Letter jmm - Antibiotic Education jmm - Prescription Opioid Use jm - Work release form ab2 Prescriptions: - cefdinir 300 mg Oral capsule - take 1 capsule by ORAL route every 12 hours; 20 capsule; Refills: 0, Product jm Selection Permitted - Clotrimazole 1 % Topical Cream - Apply to affected area 1 application by TOPICAL route every 12 hours; 15 gram; jmm Refills: 0, Product Selection Permitted Signatures: Dispatcher [employer] EDJosse Nugent PA PA jmm Rees, Jessica, RN RN jh5
[2021-04-08 17:10] VITALS: TEMP 102.6
[2021-04-08 17:16] VITALS: BP 121/77; O2SAT 99
== END 2021-04-08 17:00 | disposition home or self-care (01) ==
LOC: ER 12:34
DX: J02.9 Acute pharyngitis, unspecified (principal); B35.0 Tinea barbae and tinea capitis
CPT/HCPCS: 0240U; 87070; 87081; 99283

== ENCOUNTER 2021-04-15 05:16 | Emergency (ER) | payer SELFPAY ==
[2021-04-15 07:37] LABS: SARS-COV-2 RT PCR POSITIVE (NEGATIVE)
[2021-04-15 07:45] LABS: Urine Blood Negative (Negative); Urine Glucose Negative (Negative); Urine Protein Negative (Negative); Urine Specific Gravity 1.025 (1.005-1.030)
[2021-04-15 08:20] LABS: Urine Specific Gravity/Preg 1.025 (1.005-1.030)
--- NOTE | 2021-04-15 09:33 | RAD REPORT ---
EXAM DESCRIPTION: CT - Soft Tissue Neck W/Contr CLINICAL HISTORY: sore throat, difficulty breathing COMPARISON: No comparisons TECHNIQUE All CT scans are performed using dose optimization technique as appropriate and may includ e automated exposure control or mA/KV adjustment according to patient size. FINDINGS: Nasopharyngeal tissues are normal in appearance. Fossa Rosenmller are normal. Parapharyngeal fat triangles are symmetric. Tongue base structures are normal. Epiglottis and aryepiglottic folds are normal. Piriform sinuses are well aerated. The vocal cords are normal in appearance. Salivary glands are normal in appearance. Upper lung horne are clear. Included intracranial contents are unremarkable. Enlarged bilateral cervical chain lymph nodes which are likely reactive. Hypertrophy of Waldeyer's ri ng. No abscess. Small air-fluid level right maxillary sinus. Mild thickening in the sphenoid sinuses. IMPRESSION: Hypertrophy of Waldeyer's ring which may be secondary to infection/inflammation but no e vidence of abscess or airway narrowing. Bilateral reactive sized cervical chain lymph nodes.
--- NOTE | 2021-04-15 09:39 | ER ---
Nurse's Notes [facility] Name: Mary Napier Age: 35 yrs Sex: Female : 1985 Arrival Date: 04/15/2021 Time: 05:19 Bed 14 Private MD: Diagnosis: Streptococcal pharyngitis;Coronavirus infection, unspecified Presentation: 04/15 05:49 Chief complaint: Patient states: seen here on Monday for a sore throat, states her sm5 throat has been getting worse and feels like her throat is closing. pt unable to speak. pt's friend speaking for her. Coronavirus screen: sore throat. Ebola Screen: No symptoms or risks identified at this time. Initial Sepsis Screen: Does the patient meet any 2 criteria? No. Patient's initial sepsis screen is negative. Does the patient have a suspected source of infection? No. Patient's initial sepsis screen is negative. Risk Assessment: Do you want to hurt yourself or someone else? Patient reports no desire to harm self or others. Onset of symptoms was April 11, 2021. 05:49 Method Of Arrival: Ambulatory 5 05:49 Acuity: SOFIA 4 sm5 Triage Assessment: 05:53 General: Appears in no apparent distress. Behavior is appropriate for age. Pain: sm5 Complains of pain in throat. EENT: Reports difficulty speaking, sore throat. Neuro: No deficits noted. Level of Consciousness is awake, alert, Oriented to person, place, time, situation. 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 - Social history:: Smoking status: unknown. Screenin:53 Abuse screen: Denies threats or abuse. Denies injuries from another. Nutritional sm5 screening: No deficits noted. Tuberculosis screening: No symptoms or risk factors identified. Fall Risk None identified. Assessment: 07:00 EENT: Throat is reddened. jg9 08:00 General: Appears in no apparent distress. Behavior is calm. Pain: Complains of pain in jg9 neck-sore throat. Respiratory: Airway is patent Breath sounds are clear bilaterally. 08:00 Respiratory: Respiratory effort is even, unlabored. jg9 Vital Signs: 05:49 BP 114 / 79; Pulse 85; Resp 18; Temp 98.9(O); Pulse Ox 100% on R/A; Weight 102.06 kg; [facility] Height 5 ft. 4 in. (162.56 cm); 08:00 BP 110 / 68; Pulse 80; Resp 16 S; Pulse Ox 100% ; jg9 10:00 BP 115 / 77; Pulse 84; Resp 14 S; Pulse Ox 98% on R/A; jg9 05:49 Body Mass Index 38.62 (102.06 kg, 162.56 cm) [facility] ED Course: 05:19 Patient arrived in ED. 05:51 Triage completed. [facility] 05:53 Arm band placed on right wrist. [facility] 06:05 Josse Prince PA is PHCP. [facility] 06:05 Willy Munoz MD is Attending Physician. [facility] 06:10 Arsalan Bailey, RN is Primary Nurse. sv1 06:50 Strep Sent. sv1 06:50 COVID-19/FLU A+B (Document "Date of Onset" if Symptomatic) Sent. sv1 07:00 Patient has correct armband on for positive identification. jg9 07:30 Inserted saline lock: 22 gauge in right forearm, using aseptic technique. jg9 09:10 CT Soft Tissue Neck W/contr In Process Unspecified. EDMS 10:18 No provider procedures requiring assistance completed. jg9 10:18 IV discontinued. jg9 Administered Medications: 10:06 Drug: Decadron - Dexamethasone 10 mg Route: IVP; Site: right forearm; jg9 Outcome: 09:38 Discharge ordered by . [facility] 10:18 Discharged to home jg9 10:18 Condition: stable 10:18 Discharge instructions given to patient, Instructed on discharge instructions, follow up and referral plans. Demonstrated understanding of instructions, follow-up care, medications, Prescriptions given X 1. 10:20 Patient left the ED. jg9 Signatures: Dispatcher [employer] EDMS Josse Prince PA PA jmm Marsh, Wendy Chiquita Cui RN RN 5 Eugenia Montgomery RN RN jg9 Arsalan Bailey, KOFI RN sv1
--- NOTE | 2021-04-15 09:39 | EDPHYS ---
Physician Documentation [facility] Name: Mary Napier Age: 35 yrs Sex: Female : 1985 Arrival Date: 04/15/2021 Time: 05:19 Bed 14 Private MD: ED Physician Willy Munoz HPI: 04/15 06:21 This 35 yrs old Female presents to ER via Ambulatory with complaints of Sore jmm Throat. 06:21 The patient presents with sore throat. Onset: The symptoms/episode began/occurred jmm gradually, 1 week(s) ago. Modifying factors: The symptoms are alleviated by nothing, the symptoms are aggravated by swallowing. This is a 35 year old female that presents to the ED with complaints of sore throat and left sided lymph node swelling. Patient was prescribed a course of abx with no relief. Patient states she developed hoarse throat. Patient was also recently seen in the ED for skin lesions and prescribed abx and anti fungal creams. Complains of shortness of breath as well. . 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 - Social history:: Smoking status: unknown. ROS: 06:21 Constitutional: Negative for fever, chills, and weight loss. jmm 06:21 ENT: Positive for sore throat. 06:21 Skin: Positive for rash. 06:21 All other systems are negative. Exam: 06:21 Head/Face: atraumatic. Eyes: EOMI, no conjunctival erythema appreciated jm 06:21 Chest/axilla: Normal chest wall appearance and motion. Cardiovascular: Regular rate and rhythm. No edema appreciated Respiratory: Normal respirations, no respiratory distress appreciated Abdomen/GI: Non distended, soft Back: Normal ROM 06:21 Constitutional: The patient appears alert, awake, anxious. 06:21 ENT: Posterior pharynx: is normal, Voice: is hoarse. 06:21 Neck: Lymph nodes: lymphadenopathy is appreciated, anterior cervical nodes. 06:21 Skin: crusting lesion noted to the right side of the chin/cheek. no purulent drainage appreciated, no surrounding erythema or induration appreciated. 06:21 Neuro: Orientation: is normal, Mentation: is normal, Memory: is normal. 06:21 Psych: Behavior/mood is pleasant, cooperative, anxious. Vital Signs: 05:49 BP 114 / 79; Pulse 85; Resp 18; Temp 98.9(O); Pulse Ox 100% on R/A; Weight 102.06 kg; 5 Height 5 ft. 4 in. (162.56 cm); 08:00 BP 110 / 68; Pulse 80; Resp 16 S; Pulse Ox 100% ; jg9 10:00 BP 115 / 77; Pulse 84; Resp 14 S; Pulse Ox 98% on R/A; jg9 05:49 Body Mass Index 38.62 (102.06 kg, 162.56 cm) [facility] MDM: 06:17 Patient medically screened. [facility] 09:33 Data reviewed: vital signs, nurses notes. Counseling: I had a detailed discussion with grey the patient and/or guardian regarding: the historical points, exam findings, and any diagnostic results supporting the discharge/admit diagnosis, lab results, radiology results, the need for outpatient follow up, to return to the emergency department if symptoms worsen or persist or if there are any questions or concerns that arise at home. ED course: Patient is alert and non toxic in appearance in the ED. No signs of resp distress. Advised to follow up with ENT for further evaluation. Patient understood and agrees with the plan of care. . 04/15 05:45 Order name: COVID-19/FLU A+B (Document "Date of Onset" if Symptomatic); Complete Time: rn 07:38 04/15 05:45 Order name: Strep; Complete Time: 07:31 rn 04/15 06:20 Order name: CT Soft Tissue Neck W/contr; Complete Time: 09:33 [facility] 04/15 07:45 Order name: Urine Dipstick-Ancillary; Complete Time: 08:07 EDOR 04/15 08:00 Order name: Urine --Ancillary (enter results); Complete Time: 08:27 bd 04/15 06:33 Order name: Saline Lock; Complete Time: 08:34 [facility] 04/15 06:37 Order name: Urine Test (obtain specimen); Complete Time: 08:34 [facility] Administered Medications: 10:06 Drug: Decadron - Dexamethasone 10 mg Route: IVP; Site: right forearm; jg9 Disposition Summary: 04/15/21 09:38 Discharge Ordered Location: Home [facility] Condition: Stable [facility] Diagnosis - Streptococcal pharyngitis jm - Coronavirus infection, unspecified [facility] Followup: [facility] - With: Private Physician - When: 2 - 3 days - Reason: Recheck today's complaints, Continuance of care, Re-evaluation by your physician Discharge Instructions: - Discharge Summary Sheet [facility] - Strep Throat, Adult [facility] - COVID-19 [facility] - Form - Excuse from Work, School, or Physical Activity jg9 Forms: - Medication Reconciliation Form [facility] - Thank You Letter [facility] - Antibiotic Education [facility] - Prescription Opioid Use [facility] Prescriptions: - Clindamycin HCl 300 mg Oral Capsule - take 1 capsule by ORAL route every 6 hours for 10 days; 40 capsule; Refills: 0, [facility] Product Selection Permitted Addendum: 04/17/2021 06:57 Co-signature as Attending Physician, Willy Munoz MD I agree with the assessment and r n plan of care. Attestation: The patient's history, exam findings, diagnostics, and a summary of any interventions or procedures was reviewed in detail with Josse TUCKER. Signatures: Dispatcher [employer] EDJosse Nugent PA PA jmm Nieto, Roman, MD MD rn Mazur, Sarah RN RN sm5 Eugenia Montgomery RN RN jg9
[2021-04-15] MEDS ORDERED: dexAMETHasone 10 MG/ML VIAL ONE (09:59)
[2021-04-15 10:25] VITALS: TEMP 98.9
[2021-04-15 10:27] VITALS: BP 115/77; O2SAT 98
== END 2021-04-15 10:20 | disposition home or self-care (01) ==
LOC: ER 05:16
DX: U07.1 COVID-19 (principal); J02.0 Streptococcal pharyngitis; Z88.1 Allergy status to other antibiotic agents
CPT/HCPCS: 0240U; 70491; 81003; 81025; 82565; 87081; 96374; 99284; J1100; Q9967

== ENCOUNTER 2021-05-23 09:33 | Inpatient (IN) | payer OTHER, SELFPAY ==
[2021-05-23] MEDS ORDERED: CEFTRIAXONE 1000 MG/VIAL ONE (10:18)
[2021-05-23] MEDS ORDERED: MORPHINE 2 MG/ML SYR ONE (10:18)
[2021-05-23] MEDS ORDERED: ONDANSETRON 4 MG/2 ML VIAL ONE (10:18)
[2021-05-23] MEDS ORDERED: NA CHLORIDE 0.9% 1,000 ML ONE (10:19)
[2021-05-23 10:28] LABS: Absolute Lymphocytes (CBC) 1.9 K/uL (0.7-4.9); Hematocrit 37.5 % (36.0-45.0); Lymphocytes % 11.9 % (15.3-44.8); MPV 8.4 fL (7.6-11.3); RBC Red Blood Cell Count 4.74 M/uL (3.86-4.86)
[2021-05-23 10:52] LABS: Albumin 2.9 g/dL (3.4-5.0); Bilirubin Direct 0.5 mg/dL (0-0.2); Bilirubin Total 1.2 mg/dL (0.2-1.0); Potassium 3.2 mmol/L (3.5-5.1); Protein, Total 8.6 g/dL (6.4-8.2)
[2021-05-23] MEDS ORDERED: ACETAMINOPHEN 500 MG TAB ONE (11:34)
[2021-05-23 11:43] LABS: Urine Blood 3+ (Negative); Urine Glucose Negative (Negative); Urine Protein Trace (Negative); Urine Specific Gravity 1.015 (1.005-1.030); Urine pH 5.5 (5.0-7.0)
[2021-05-23 11:55] LABS: Blood Morphology Comment NOT SEEN (NOT SEEN); Platelet Estimate ADEQ
[2021-05-23 12:02] LABS: Barbiturates NEGATIVE (NEGATIVE); Benzodiazepines NEGATIVE (NEGATIVE); Cocaine NEGATIVE (NEGATIVE); METHAMPHETAM NEGATIVE (NEGATIVE); Methadone NEGATIVE (NEGATIVE); Opiates POSITIVE (NEGATIVE); Phencyclidine NEGATIVE (NEGATIVE); THC Cannibis NEGATIVE (NEGATIVE)
[2021-05-23 12:17] LABS: SARS-COV-2 RT PCR POSITIVE (NEGATIVE)
[2021-05-23 12:21] LABS: Urine Specific Gravity/Preg 1.015 (1.005-1.030)
--- NOTE | 2021-05-23 12:41 | RAD REPORT ---
EXAM DESCRIPTION: CT - Chest For Pe Angio - 05/23/2021 12:31 pm CLINICAL HISTORY: FEVER COMPARISON: No comparisons FINDINGS: Chest Wall: No suspicious thyroid nodules or pathologic lymphadenopathy. Lungs: No acute abnormality. Pleura: No significant effusions or pneumothorax. Mediastinum/neil: No pathologic lymphadenopathy. Pulmonary arteries/Aorta: No filling defect identified. No aortic aneurysm. Heart: No significant pericardial effusion. Normal heart size. Upper abdomen: No acute abnormality. Bones: No acute abnormality. All CT scans are performed using dose optimization technique as appropriate and may include automated exposure control or mA/KV adjustment according to patient size. IMPRESSION: Negative for pulmonary embolism. No acute findings in the chest.
--- NOTE | 2021-05-23 12:43 | RAD REPORT ---
EXAM DESCRIPTION: CTAbdomen Pelvis W Contrast - 05/23/2021 12:31 pm CLINICAL HISTORY: vomiting, fever COMPARISON: Abdomen Pelvis W Contrast dated 09/30/2020; Chest For Pe Angio dated 05/23/2021 TECHNIQUE: CT of the abdomen and pelvis was performed. All CT scans are performed using dose optimization technique as appropriate and may include automated exposure control or mA/KV adjustment according to patient size. FINDINGS: Lower chest: No acute abnormality. Liver: No acute abnormality or suspicious lesions. Hepatic steatosis. Biliary: No biliary ductal dilatation. Cholecystectomy. Stomach: No significant focal abnormality. Duodenum: No significant focal abnormality. Pancreas: No significant abnormality. Spleen: No significant abnormality. Adrenal: No suspicious lesions. Kidney/ureter: No hydronephrosis. No renal calculi. Retroperitoneum: No retroperitoneal adenopathy. Vascular: No aneurysm. Bowel: No significant focal abnormality. Normal appendix. Peritoneum: No ascites or free air. Small fat containing ventral hernia. Bladder: Grossly unremarkable. Reproductive: No adnexal masses. Nabothian cyst. Bones: No acute fracture. Other: n/a IMPRESSION: No acute intra-abdominal or pelvic finding.
[2021-05-23] MEDS ORDERED: MORPHINE 2 MG/ML SYR IV PRN (13:49)
[2021-05-23] MEDS ORDERED: VANCOMYCIN 1 GM in NA CHLORIDE 0.9% 250 ML IVPB SCH (14:00)
--- NOTE | 2021-05-23 14:01 | ER ---
Nurse's Notes [facility] Name: Mary Napier Age: 36 yrs Sex: Female : 1985 Arrival Date: 05/23/2021 Time: 09:35 Bed 16 Private MD: Diagnosis: Facial Cellulitis;Vomiting;Covid Presentation: 05/23 09:46 Chief complaint: Patient states: Sores to scalp and face for over 1 month. Has weakness ll1 and fever (103 at home). + N/V. Cough, sore throat, and fever this week. 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 Coronavirus screen: Vaccine status: Patient reports receiving the 2nd dose of the covid vaccine. Client denies travel out of the [place] in the last 14 days. cough unrelated to allergies, fatigue, fever, sore throat, Client presents with at least one sign or symptom that may indicate coronavirus-19. Standard/surgical mask placed on the client. Ebola Screen: Patient denies travel to an Ebola-affected area in the 21 days before illness onset. No acute neurological deficit is noted. Initial Sepsis Screen: Does the patient meet any 2 criteria? RR > 20 per min. Temp <36.0*C (96.8*F)) or > 38.3*C (100.9*F). HR > 90 bpm. Yes Does the patient have a suspected source of infection? Yes: Skin breakdown/wound. Risk Assessment: Do you want to hurt yourself or someone else? Patient reports no desire to harm self or others. Onset of symptoms was April 15, 2021. 09:46 Method Of Arrival: Ambulatory ll1 09:46 Acuity: SOFIA 2 ll1 Triage Assessment: 09:47 General: Appears ill, Behavior is cooperative, appropriate for age, listless. Pain: ll1 Complains of pain in scalp Quality of pain is described as aching. EENT: Reports pain when swallowing. Neuro: Reports headache weakness. Cardiovascular: No deficits noted. Respiratory: Reports cough that is. GI: Reports nausea, vomiting. Derm: Reports skin sores and wounds to scalp and face. Stroke Activation: Symptom onset > 6 hours Physician: Stroke Attending; Name: ; Notified At: ; Arrived At: Physician: Chief Stroke Resident; Name: ; Notified At: ; Arrived At: Physician: Stroke Resident; Name: ; Notified At: ; Arrived At: Physician: ED Attending; Name: ; Notified At: ; Arrived At: Physician: ED Resident; Name: ; Notified At: ; Arrived At: Historical: - Allergies: 10:07 Amoxicillin; ll1 - PMHx: 10:07 None; ll1 - PSHx: 10:07 None; ll1 - Immunization history:: Client reports receiving the 2nd dose of the Covid vaccine. - Social history:: Smoking status: Patient denies any tobacco usage or history of. Screenin:27 Abuse screen: Denies threats or abuse. Denies injuries from another. Nutritional ab2 screening: No deficits noted. Tuberculosis screening: No symptoms or risk factors identified. Fall Risk None identified. Assessment: 10:25 General: Appears in no apparent distress. comfortable, Behavior is calm, cooperative, ab2 appropriate for age. Pain: Complains of pain in head Pain currently is 10 out of 10 on a pain scale. Quality of pain is described as aching, throbbing. Neuro: Level of Consciousness is awake, alert, obeys commands, Oriented to person, place, time, situation, Appropriate for age Burring Machine Operator are equal bilaterally Moves all extremities. Gait is steady, Speech is normal, Facial symmetry appears normal. Cardiovascular: No deficits noted. Denies chest pain, shortness of breath, Heart tones S1 S2 present Patient's skin is warm and dry. Chest pain is denied. Respiratory: Airway is patent Respiratory effort is even, unlabored, Respiratory pattern is regular, symmetrical, Breath sounds are clear bilaterally. GI: Abdomen is round non-distended, Bowel sounds present X 4 quads. Reports nausea, vomiting. : No deficits noted. No signs and/or symptoms were reported regarding the genitourinary system. EENT: No deficits noted. No signs and/or symptoms were reported regarding the EENT system. Derm: Skin is dry, Skin is pink, warm \\T\\ dry. Wound noted Wound is Pt has multiple lesion like wounds on her face and scalp. Musculoskeletal: No deficits noted. No signs and/or symptoms reported regarding the musculoskeletal system. 11:30 Reassessment: Patient appears in no apparent distress at this time. Awaiting results ab2 for disposition. Patient is sleeping. Denies any needs. 12:55 Reassessment: Patient appears in no apparent distress at this time. Patient resting in ab2 bed, awaiting disposition. Pt denies any needs at this time. Fever has come down from tylenol. Vital Signs: 09:46 BP 125 / 84; Pulse 117; Resp 28; Temp 102.8; Pulse Ox 97% on R/A; Weight 104.33 kg; ll1 Height 5 ft. 4 in. (162.56 cm); Pain 10/10; 10:27 BP 122 / 76; Pulse 112; Resp 16; Pulse Ox 98% on R/A; ab2 11:26 BP 123 / 75; Pulse 108; Resp 16; Temp 103.0(O); Pulse Ox 98% on R/A; ab2 12:27 BP 111 / 73; Pulse 102; Resp 16; Pulse Ox 96% on R/A; ab2 12:45 BP 122 / 79; Pulse 97; Resp 16; Temp 100.2(O); Pulse Ox 98% on R/A; Pain 4/10; ab2 13:37 BP 95 / 59; Pulse 94; Resp 16; Pulse Ox 98% on R/A; ab2 14:28 BP 103 / 70; Pulse 98; Resp 16; Temp 97.5(O); Pulse Ox 97% on R/A; ab2 09:46 Body Mass Index 39.48 (104.33 kg, 162.56 cm) ll1 ED Course: 09:35 Patient arrived in ED. ds1 09:36 Josse Prince PA is PHCP. jmm 09:36 Javon Ashford MD is Attending Physician. jmm 09:45 Arm band placed on Patient placed in an exam room, on a stretcher. ll1 10:07 Triage completed. ll1 10:12 COVID-19/FLU A+B (Document "Date of Onset" if Symptomatic) Sent. kv1 10:12 Strep Sent. kv1 10:25 Zac Mcgarry is Primary Nurse. ab2 10:27 No provider procedures requiring assistance completed. Inserted saline lock: 20 gauge ab2 in left forearm, using aseptic technique. Missed attempt(s): 20 gauge in left antecubital area. 10:28 Patient has correct armband on for positive identification. Bed in low position. Call ab2 light in reach. Side rails up X2. 10:28 [place] Screen Profile Sent. ab2 10:29 Basic Metabolic Panel Sent. ab2 10:29 Hepatic Function Sent. ab2 10:29 CBC with Diff Sent. ab2 10:29 Basic Metabolic Panel Sent. ab2 10:29 Liver (Hepatic) Function Sent. ab2 10:29 Procalcitonin Sent. ab2 10:29 Lactate Sent. ab2 11:25 Blood Culture Sent. ab2 11:25 Blood Culture Adult (2) Sent. ab2 11:52 UDS Sent. cs9 11:52 COVID-19/FLU A+B (Document "Date of Onset" if Symptomatic) Sent. cs9 12:05 Urine --Ancillary (enter results) Sent. ab2 12:06 Urine --Ancillary Sent. cs9 12:31 CT Chest For PE Angio In Process Unspecified. EDMS 12:31 CT Abd/Pelvis - IV Contrast Only In Process Unspecified. EDMS 13:56 Griselda Andersen MD is Hospitalizing Provider. [facility] 14:49 Report given to Akash KIRBY on [facility]. ab2 Administered Medications: 10:28 Drug: Rocephin (cefTRIAXone) 2 grams Route: IV; Rate: calculated rate; Site: right ab2 forearm; 14:29 Follow up: Response: No adverse reaction ab2 14:30 Follow up: Response: No adverse reaction; IV Status: Completed infusion ab2 10:29 Drug: NS 0.9% 1000 ml Route: IV; Rate: 1 bolus; Site: right forearm; ab2 14:29 Follow up: Response: No adverse reaction; IV Status: Completed infusion ab2 10:29 Drug: morphine 2 mg Route: IVP; Site: right forearm; ab2 14:30 Follow up: Response: No adverse reaction ab2 10:29 Drug: Zofran (Ondansetron) 4 mg Route: IVP; Site: right forearm; ab2 14:30 Follow up: Response: No adverse reaction ab2 11:33 Drug: Tylenol 1000 mg Route: PO; ab2 14:29 Follow up: Response: No adverse reaction ab2 Outcome: 14:00 Decision to Hospitalize by Provider. jmm 14:49 Admitted to Med/surg accompanied by tech, via wheelchair, with chart, Report called to ab2 Hussein KIRBY 14:49 Condition: good 15:03 Patient left the ED. ab2 Signatures: Dispatcher [facility] MickaJosse talamantes PA PA jmm Sanford, Demi ds1 Morelia Hennessy RN RN ll1 Jerrica Moreland cs9 Ludin León Alexis ab2 Corrections: (The following items were deleted from the chart) 10:30 10:27 Inserted saline lock: 20 gauge in right forearm, using aseptic technique. Missed ab2 attempt(s): 20 gauge in right antecubital area. ab2 12:56 12:55 Reassessment: Patient appears in no apparent distress at this time. Patient ab2 resting in bed, awaiting disposition. Pt denies any needs at this time. ab2
--- NOTE | 2021-05-23 14:01 | EDPHYS ---
Physician Documentation [facility] Name: Mary Napier Age: 36 yrs Sex: Female : 1985 Arrival Date: 05/23/2021 Time: 09:35 Bed 16 Private MD: ED Physician Javon Ashford Historical: - Allergies: 05/23 10:07 Amoxicillin; ll1 - PMHx: 10:07 None; ll1 - PSHx: 10:07 None; ll1 - Immunization history:: Client reports receiving the 2nd dose of the Covid vaccine. - Social history:: Smoking status: Patient denies any tobacco usage or history of. Vital Signs: 09:46 BP 125 / 84; Pulse 117; Resp 28; Temp 102.8; Pulse Ox 97% on R/A; Weight 104.33 kg; ll1 Height 5 ft. 4 in. (162.56 cm); Pain 10/10; 10:27 BP 122 / 76; Pulse 112; Resp 16; Pulse Ox 98% on R/A; ab2 11:26 BP 123 / 75; Pulse 108; Resp 16; Temp 103.0(O); Pulse Ox 98% on R/A; ab2 12:27 BP 111 / 73; Pulse 102; Resp 16; Pulse Ox 96% on R/A; ab2 12:45 BP 122 / 79; Pulse 97; Resp 16; Temp 100.2(O); Pulse Ox 98% on R/A; Pain 4/10; ab2 13:37 BP 95 / 59; Pulse 94; Resp 16; Pulse Ox 98% on R/A; ab2 14:28 BP 103 / 70; Pulse 98; Resp 16; Temp 97.5(O); Pulse Ox 97% on R/A; ab2 09:46 Body Mass Index 39.48 (104.33 kg, 162.56 cm) ll1 MDM: 09:48 Patient medically screened. grey 13:53 Data reviewed: vital signs, nurses notes. Counseling: I had a detailed discussion with grey the patient and/or guardian regarding: the historical points, exam findings, and any diagnostic results supporting the discharge/admit diagnosis, lab results, radiology results, the need for further work-up and treatment in the hospital. ED course: I discussed the patient with Dr. Andersen whom accepted the patient for admission. 05/23 09:50 Order name: Basic Metabolic Panel [facility] 05/23 09:50 Order name: CBC with Diff; Complete Time: 11:59 [facility] 05/23 09:50 Order name: Hepatic Function [facility] 05/23 09:50 Order name: Lipase; Complete Time: 10:58 [facility] 05/23 09:51 Order name: Basic Metabolic Panel; Complete Time: 10:58 [facility] 05/23 09:51 Order name: Liver (Hepatic) Function; Complete Time: 10:58 [facility] 05/23 09:53 Order name: Procalcitonin; Complete Time: 11:28 [facility] 05/23 09:53 Order name: Lactate; Complete Time: 10:58 [facility] 05/23 09:53 Order name: Strep; Complete Time: 10:33 [facility] 05/23 09:53 Order name: [place] Screen Profile; Complete Time: 11:28 [facility] 05/23 09:54 Order name: COVID-19/FLU A+B (Document "Date of Onset" if Symptomatic); Complete Time: [facility] 12:24 05/23 10:19 Order name: Throat Culture [facility] 05/23 10:35 Order name: Blood Culture Adult (2) [facility] 05/23 10:35 Order name: Blood Culture [facility] 05/23 11:30 Order name: CT Chest For PE Angio; Complete Time: 12:44 [facility] 05/23 11:30 Order name: CT Abd/Pelvis - IV Contrast Only; Complete Time: 12:44 [facility] 05/23 11:32 Order name: UDS; Complete Time: 12:02 [facility] 05/23 11:43 Order name: Urine Dipstick-Ancillary; Complete Time: 11:47 [facility] 05/23 11:52 Order name: Manual Differential; Complete Time: 11:59 [facility] 05/23 12:04 Order name: Urine --Ancillary (enter results) 05/23 12:04 Order name: Urine --Ancillary; Complete Time: 12:24 [facility] 05/23 13:52 Order name: Basic Metabolic Panel [facility] 05/23 13:52 Order name: Basic Metabolic Panel [facility] 05/23 13:52 Order name: CBC with Automated Diff [facility] 05/23 13:52 Order name: CBC with Automated Diff [facility] 05/23 14:54 Order name: Lactate Sepsis 2 HR Follow-up; Complete Time: 17:34 [facility] 05/23 09:50 Order name: IV Saline Lock; Complete Time: 10:29 [facility] 05/23 09:50 Order name: Labs collected and sent; Complete Time: 10:29 [facility] 05/23 11:32 Order name: Urine Dipstick-Ancillary (obtain specimen); Complete Time: 11:49 [facility] 05/23 13:52 Order name: CONS Physician Consult [facility] 05/23 13:52 Order name: Regular EDMS Administered Medications: 10:28 Drug: Rocephin (cefTRIAXone) 2 grams Route: IV; Rate: calculated rate; Site: right ab2 forearm; 14:29 Follow up: Response: No adverse reaction ab2 14:30 Follow up: Response: No adverse reaction; IV Status: Completed infusion ab2 10:29 Drug: NS 0.9% 1000 ml Route: IV; Rate: 1 bolus; Site: right forearm; ab2 14:29 Follow up: Response: No adverse reaction; IV Status: Completed infusion ab2 10:29 Drug: morphine 2 mg Route: IVP; Site: right forearm; ab2 14:30 Follow up: Response: No adverse reaction ab2 10:29 Drug: Zofran (Ondansetron) 4 mg Route: IVP; Site: right forearm; ab2 14:30 Follow up: Response: No adverse reaction ab2 11:33 Drug: Tylenol 1000 mg Route: PO; ab2 14:29 Follow up: Response: No adverse reaction ab2 Disposition: 05/24 09:10 Co-signature as Attending Physician, Javon Ashford MD I agree with the assessment and [facility] plan of care. Disposition Summary: 05/23/21 14:00 Hospitalization Ordered Hospitalization Status: Inpatient Admission [facility] Provider: Griselda Andersen Location: Telemetry/MedSurg (Inpatient) [facility] Condition: Stable jm Problem: new jmm Symptoms: are unchanged jm Bed/Room Type: Standard [facility] Room Assignment: 413(05/23/21 14:24) dw Diagnosis - Facial Cellulitis jmm - Vomiting jmm - Covid jmm Forms: - Medication Reconciliation Form jmm - SBAR form jm Signatures: Dispatcher [employer] EDMS Vanessa Sears RN RN Josse Taylor PA PA jmm Lewis, Lynsay, RN RN ll1 Zeferino, Zac sheridan2 Javon Ashford MD MD [id number] Corrections: (The following items were deleted from the chart) 05/23 14:24 14:00 grey parr
[2021-05-23] MEDS ORDERED: VANCOMYCIN 2.5 GM in NA CHLORIDE 0.9% 500 ML IVPB ONE (15:00)
[2021-05-23] MEDS ORDERED: WATER FOR INJ,STERILE 10 ML IV SCH (15:00)
[2021-05-23] MEDS ORDERED: Levofloxacin500mg IV 500 MG/100 ML BAG IV SCH (15:00)
[2021-05-23 15:15] VITALS: O2SAT 97
[2021-05-23] MEDS: NA CHLORIDE 0.9% 1,000 ML IV SCH (15:42)
[2021-05-23] MEDS: MORPHINE 4 MG/ML SYR IV PRN ×2 (15:44→21:11)
[2021-05-23 16:00] VITALS: BMI 39.4
[2021-05-23] MEDS ORDERED: INFLUENZA VACCINE (for 6+ mo) 0.5 ML DOSE IMVAC ONE (16:00)
[2021-05-23] MEDS: ACETAMINOPHEN 500 MG TAB PO PRN ×2 (17:24→23:31)
[2021-05-23] MEDS ORDERED: HYDROCORTISONE SUC 100 MG INJ IV SCH (21:00)
--- NOTE | 2021-05-23 23:25 | P.HP ---
Certification for Inpatient Patient admitted to: Inpatient With expected LOS: >2 Midnights Patient will require the following post-hospital care: None Practitioner: I am a practitioner with admitting privileges, knowledge of patient current condition, hospital course, and medical plan of care. Services: Services provided to patient in accordance with Admission requirements found in Title 42 Section 412.3 of the Code of Federal Regulations Patient History Date of Service: 05/23/21 Reason for admission: Facial cellulitis with multiple facial scabs History of Present Illness: Patient is a 36-year-old female who came to the hospital with multiple scabs on her face. She has had circular regions x4 on her face. There are some erythema around the scabs. She states this happened after Covid-19 infection. She has been on medications but she has not been feeling well. She came to the hospital for further evaluation. Patient has been on antibiotic therapy. Patient has significant leukocytosis. We will continue with IV steroids and IV antibiotics along with infectious disease consultation for further treatment. Allergies amoxicillin Allergy (Unverified 08/17/17 22:35) Unknown Home Medications: NK [No Home Meds] 05/23/21 - Past Medical/Surgical History -: Covid-19 infection -: Tubal Ligation - Family History Father Family History: Reviewed- Non-Contributory - Social History Smoking Status: Former smoker Alcohol use: Yes CD- Drugs: No Caffeine use: No Place of Residence: Home Review of Systems 10-point ROS is otherwise unremarkable Physical Examination - Vital Signs Temperature: 102 F Blood Pressure: 119/59 Pulse: 108 Respirations: 17 Pulse Ox (%): 97 - Physical Exam General: Alert, In no apparent distress, Oriented x3 HEENT: Atraumatic, PERRLA, Mucous membr. moist/pink, Other (Patient with multiple facial scabs), EOMI, Sclerae nonicteric Neck: Supple, 2+ carotid pulse no bruit, No LAD, Without JVD or thyroid abnormality Respiratory: Clear to auscultation bilaterally, Normal air movement Cardiovascular: Regular rate/rhythm, Normal S1 S2, No murmurs Gastrointestinal: Normal bowel sounds, Soft and benign, Non-distended, No tenderness Musculoskeletal: No clubbing, No swelling, Swelling, Erythema, Tenderness Integumentary: Skin lesion, Tenderness/swelling, Erythema, Warmth Neurological: Normal gait, Normal speech, Normal strength at 5/5 x4 extr, Normal tone, Sensation intact, Cranial nerves 3-12 intact, Normal affect Lymphatics: No axilla or inguinal lymphadenopathy - Studies Laboratory Data (last 24 hrs) 05/23/21 10:19: WBC 16.30 H, Hgb 12.6, Hct 37.5, Plt Count 270 05/23/21 10:19: Sodium 128 L, Potassium 3.2 L, BUN 16, Creatinine 1.09, Glucose 129 H, Total Bilirubin 1.2 H, AST 108 H, ALT 252 H, Alkaline Phosphatase 205 H, Lipase 97 Microbiology Data (last 24 hrs): 05/23/21 10:01 Throat Group A Streptococcus Rapid Screen - Final Assessment & Plan - Problems (Diagnosis) (1) Facial cellulitis Current Visit: Yes Status: Acute (2) Facial skin lesion Current Visit: Yes Status: Acute (3) COVID-19 virus infection Current Visit: Yes Status: Acute (4) Skin lesion of lower extremity Current Visit: Yes Status: Acute - Plan PLAN: 1. Continue with IV antibiotic along with IV steroids 2. Continue with local wound care 3. Wound care consultation/infectious disease consultation 4. Gentle IV hydration 5. Monitor CBC 6. Strict blood sugar monitoring 7. Pain control 8. GI and DVT prophylaxis Discharge Plan: Home Plan to discharge in: Greater than 2 days - Advance Directives Does patient have a Living Will: No Does patient have a Durable POA for Healthcare: No - Code Status/Comfort Care Code Status Assessed: Yes Code Status: Full Code Critical Care: No Time Spent Managing PTS Care (In Minutes): 45
[2021-05-23] MEDS ORDERED: ACETAMINOPHEN 500 MG TAB PO ONE (23:30)
[2021-05-24] MEDS: HYDROCORTISONE SUC 100 MG INJ IV SCH ×3 (01:11→17:40)
[2021-05-24] MEDS: NA CHLORIDE 0.9% 1,000 ML IV SCH (03:29)
[2021-05-24] MEDS: MORPHINE 4 MG/ML SYR IV PRN ×2 (06:17→13:23)
[2021-05-24 06:33] LABS: Absolute Lymphocytes (CBC) 1.6 K/uL (0.7-4.9); Hematocrit 34.2 % (36.0-45.0); Lymphocytes % 15.2 % (15.3-44.8); MPV 8.6 fL (7.6-11.3); RBC Red Blood Cell Count 4.21 M/uL (3.86-4.86)
[2021-05-24 06:41] LABS: BUN Blood Urea Nitrogen 10 mg/dL (7-18); Bicarbonate 25 mmol/L (21-32); Glucose Level 88 mg/dL (74-106); Potassium 3.5 mmol/L (3.5-5.1); Sodium Level 135 mmol/L (136-145)
[2021-05-24] MEDS ORDERED: VANCOMYCIN 1.75 GM in NA CHLORIDE 0.9% 500 ML IVPB SCH (09:00)
[2021-05-24] MEDS ORDERED: Levofloxacin 750mg IV 750 MG/150 ML BAG IV SCH (09:00)
--- NOTE | 2021-05-24 14:50 | P.CNS ---
Date of Consult: 05/24/21 Chief Complaint: Facial cellulitis with multiple facial scabs History of Present Illness: The patient is a 36-year-old female with no pre-existing past medical history who presented to the emergency department secondary to worsening scabs/lesions present on her face neck and scalp that have been worsening since February of last year. Per patient, she received her full dose of Pfizer COVID-19 vaccine in February and got COVID within the same month. A few days after she was teste d positive for Covid the lesions developed on her face. States that lesions lose a serosanguineous fluid, and are very painful. Lesions are associated with dry mouth, difficulty swallowing, and lymphadenopathy. Patient denies any history of dermatological/rheumatological diseases. Lesions are restricted to face head and neck, not present anywhere else on the body. Patient denies his any recent unintentional weight gain/weight loss, easy bruising/bleeding, or hair loss. Denies active drug use, states that she tried cocaine for 1 time last year. States she used to smoke-started when she was 16 years old however stopped in December of last year. Denies any environmental exposure, states she works at [employer]. States she is not currently sexually active, has a past medical history of trichomonas however no concern for active STDs. Patient currently denies nausea/vomiting/diarrhea/shortness of breath/chest pain. Allergies amoxicillin Allergy (Verified 05/24/21 01:11) Unknown Home Medications: NK [No Home Meds] 05/23/21 - Past Medical/Surgical History -: Covid-19 infection -: Tubal Ligation - Family History Father Family History: Reviewed- Non-Contributory - Social History Smoking Status: Unknown if ever smoked Alcohol use: Yes CD- Drugs: No Caffeine use: No Place of Residence: Home Review of Systems 10-point ROS is otherwise unremarkable Physical Examination Temp Pulse Resp BP Pulse Ox 98.0 F 83 16 103/60 98 05/24/21 12:00 05/24/21 12:00 05/24/21 13:23 05/24/21 12:00 05/24/21 13:23 General: Alert, In no apparent distress, Obese HEENT: Atraumatic, Normocephalic (Parotid and tonsillar lymphadenopathy. Bilateral lymphadenopathy down deep cervical tract), Other (Multiple lesions in various stages of healing to scalp, neck, and face. Areas are large, some indurated with periwound erythema. Lesion to right zygomatic arch has tunneling present in center of lesion. Lesion to left side of neck open with base of wound showing fibrinTissue. ) Neck: Supple, 2+ carotid pulse no bruit Respiratory: Clear to auscultation bilaterally, Normal air movement Cardiovascular: No edema, Normal pulses Capillary refill: <2 Seconds Gastrointestinal: Normal bowel sounds Musculoskeletal: No clubbing, No swelling, No contractures Integumentary: No rashes, No breakdown, No significant lesion Neurological: Normal gait, Normal speech Conclusions/Impression: Antibiotics Vancomycin: 05/23current Levaquin: 05/23current Assessment/plan Facial/scalp/neck lesions of unknown origin -Wound care to open lesion on left side of neck: Apply Medihoney, alginate, and cover with foam Pending labs include: ESR, CRP, pANCA, RPR, and HIV antibody rapid -Recommend continuing vancomycin for MRSA coverage. Recommend discontinuing Levaquin. -Patient denies current use of drugs however opiate positive on admission drug screen -Patient denies history of any autoimmune disorders Recommend continuing IV steroid Patient needs urgent dermatology consult/referral. Patient needs a biopsy/culture. COVID-19 -Patient asymptomatic, continue to monitor Medical management per primary team Plan of care discussed with Dr. Garcia Labor consultation
--- NOTE | 2021-05-24 15:23 | P.PN ---
Subjective Date of Service: 05/24/21 Chief Complaint: Facial cellulitis with multiple facial scabs Subjective: No new changes (Still persistent skin lesions and itching) Physical Examination - Vital Signs Temperature: 98.0 F Blood Pressure: 103/60 Pulse: 83 Respirations: 16 Pulse Ox (%): 98 - Studies Microbiology Data (last 24 hrs): 05/23/21 10:52 Blood - Blood Anaerobic Blood Culture - Final 05/23/21 10:01 Throat Group A Streptococcus Rapid Screen - Final Assessment And Plan Physician Review: Patient Assessed, Agree with Above Assessment and Plan Physician Review Additional Text: 05/24/21 15:20 - Physical Exam General: Alert, In no apparent distress, Oriented x3 HEENT: multiple facial and scalp scabs of various sizes, necrotic eschar Neck: Supple, 2+ carotid pulse no bruit, No LAD, Without JVD or thyroid abnormality Respiratory: Clear to auscultation bilaterally, Normal air movement Cardiovascular: Regular rate/rhythm, Normal S1 S2, No murmurs Gastrointestinal: Normal bowel sounds, Soft and benign, Non-distended, No tenderness Musculoskeletal: No clubbing, No swelling, Swelling, Erythema, Tenderness Integumentary: Skin lesion, Tenderness/swelling, Erythema, Warmth Neurological: Normal gait, Normal speech, Normal strength at 5/5 x4 extr, Normal tone, Sensation intact, Cranial nerves 3-12 intact, Normal affect Lymphatics: No axilla or inguinal lymphadenopathy Studies 05/23/21 10:01 Throat Group A Streptococcus Rapid Screen - Final Assessment & Plan - Problems (Diagnosis) (1) Facial cellulitis Current Visit: Yes Status: Acute (2) Facial skin lesion Current Visit: Yes Status: Acute (3) COVID-19 virus infection Current Visit: Yes Status: Acute (4) Skin lesion of lower extremity Current Visit: Yes Status: Acute - Plan PLAN: We will switch antibiotics to p.o., continue empirical steroids Low suspicion for cellulitis, suspected lipodicurum necrosis -Unclear if related to Covid although have seen [facility] patient Since normal renal function as well as absence of diabetes, may be due to unknown etiology General surgeryDr. Rodas discussed with today to arrange for skin biopsy of lesion Can discharge patient after biopsy with empirical steroid and antibiotics and follow in clinic Follow wound care as well as ID consult Continue strict glycemic control Continue pain regimen Continue anti-itching medication GI and DVT prophylaxis Discharge Plan: Home Plan to discharge in: in 1-2 days - Advance Directives Does patient have a Living Will: No Does patient have a Durable POA for Healthcare: No - Code Status/Comfort Care Code Status Assessed: Yes Code Status: Full Code Critical Care: No Time Spent Managing PTS Care (In Minutes): 35
--- NOTE | 2021-05-24 18:42 | RAD REPORT ---
EXAM DESCRIPTION: CT - [facility] CLINICAL HISTORY: Cellulitis COMPARISON: Soft Tissue Neck W/Contr dated 04/15/2021 TECHNIQUE: Axial 2 mm thick images of the face were obtained with sagittal and coronal reconstructio n images. All CT scans are performed using dose optimization technique as appropriate and may include automated exposure control or mA/KV adjustment according to patient size. FINDINGS: Wound and skin thickening at the right cheek. No abscess identified. Mild subcutaneous antony ma. This is superficial. No involvement of the deep structures. The globes and orbital contents are grossly unremarkable.The paranasal sinuses and mastoids are clear . IMPRESSION: Right cheek wound with adjacent subcutaneous thickening consistent with a cellulitis. No abscess identified. No involvement of the deeper structures. The orbits are intact.
[2021-05-24] MEDS: VANCOMYCIN 1.75 GM in NA CHLORIDE 0.9% 500 ML IVPB SCH (21:44)
[2021-05-25] MEDS: HYDROCORTISONE SUC 100 MG INJ IV SCH ×2 (01:08→08:22)
[2021-05-25 01:17] LABS: RPR (Rapid Plasma Reagin) REACTIVE (NON-REACT)
[2021-05-25] MEDS: VANCOMYCIN 1.75 GM in NA CHLORIDE 0.9% 500 ML IVPB SCH (08:23)
[2021-05-25] MEDS ORDERED: MEDIHONEY 44 ML TOPICAL TUBE TOP SCH (09:00)
--- NOTE | 2021-05-25 11:10 | P.PN ---
Subjective Date of Service: 05/25/21 Chief Complaint: Facial cellulitis with multiple facial scabs Patient seen and examined at bedside, states the drainage from her scalp wounds has decreased. CRP and ESR elevated, RPR reactive, T. pallidum Ab pending. Kinney negative, flu a and B negative. Goup A strep negative, throat culture showed normal rachel. Patient afebrile today. Review of Systems 10-point ROS is otherwise unremarkable Physical Examination - Vital Signs Temperature: 98.4 F Blood Pressure: 114/55 Pulse: 86 Respirations: 16 Pulse Ox (%): 92 - Studies Laboratory Last Values WBC 16.30 K/uL (4.3-10.9) H 05/23/21 10:19 RBC 4.74 M/uL (3.86-4.86) 05/23/21 10:19 Hgb 12.6 g/dL (12.0-15.0) 05/23/21 10:19 Hct 37.5 % (36.0-45.0) 05/23/21 10:19 MCV 79.0 fL (80-100) L 05/23/21 10:19 MCH 26.5 pg (27.0-35.0) L 05/23/21 10:19 MCHC 33.5 g/dL (32.0-36.0) 05/23/21 10:19 RDW 15.9 % (12.1-15.2) H 05/23/21 10:19 Plt Count 270 K/uL (152-406) 05/23/21 10:19 MPV 8.4 fL (7.6-11.3) 05/23/21 10:19 Neutrophils % 83.0 % (41.7-73.7) H 05/23/21 10:19 Lymphocytes % 11.9 % (15.3-44.8) L 05/23/21 10:19 Monocytes % 4.5 % (3.3-12.3) 05/23/21 10:19 Eosinophils % 0.1 % (0-4.4) 05/23/21 10:19 Basophils % 0.5 % (0-1.3) 05/23/21 10:19 Absolute Neutrophils 13.5 K/uL (1.8-8.0) H 05/23/21 10:19 Segmented Neutrophils 76 % (40-80) 05/23/21 10:19 Band Neutrophils 1 % (0-1) 05/23/21 10:19 Absolute Lymphocytes 1.9 K/uL (0.7-4.9) 05/23/21 10:19 Lymphocytes 13 % (15-42) L 05/23/21 10:19 Monocytes 10 % (0-10) 05/23/21 10:19 Absolute Monocytes 0.7 K/uL (0.1-1.3) 05/23/21 10:19 Absolute Eosinophils 0.0 K/uL (0-0.5) 05/23/21 10:19 Absolute Basophils 0.1 K/uL (0-0.5) 05/23/21 10:19 Platelet Estimate Adeq 05/23/21 10:19 Clumped Platelets Few 05/23/21 10:19 Morphology Comment Not seen (NOT SEEN) 05/23/21 10:19 Sodium 128 mmol/L (136-145) L 05/23/21 10:19 Potassium 3.2 mmol/L (3.5-5.1) L 05/23/21 10:19 Chloride 96 mmol/L (98-107) L 05/23/21 10:19 Carbon Dioxide 25 mmol/L (21-32) 05/23/21 10:19 BUN 16 mg/dL (7-18) 05/23/21 10:19 Creatinine 1.09 mg/dL (0.55-1.3) 05/23/21 10:19 Estimated GFR 56 mL/min (=/>90) L 05/23/21 10:19 Glucose 129 mg/dL (74-106) H 05/23/21 10:19 Lactic Acid 2.8 mmol/L (0.4-2.0) H 05/23/21 10:18 Calcium 8.7 mg/dL (8.5-10.1) 05/23/21 10:19 Total Bilirubin 1.2 mg/dL (0.2-1.0) H 05/23/21 10:19 Direct Bilirubin 0.5 mg/dL (0-0.2) H 05/23/21 10:19 AST 108 U/L (15-37) H 05/23/21 10:19 ALT 252 U/L (12-78) H 05/23/21 10:19 Alkaline Phosphatase 205 U/L (45-117) H 05/23/21 10:19 Serum Total Protein 8.6 g/dL (6.4-8.2) H 05/23/21 10:19 Albumin 2.9 g/dL (3.4-5.0) L 05/23/21 10:19 Globulin 5.7 g/dL (2.3-3.5) H 05/23/21 10:19 Albumin/Globulin Ratio 0.5 (1.1-1.8) L 05/23/21 10:19 Lipase 97 U/L (73-393) 05/23/21 10:19 Procalcitonin 1.36 ng/mL (<0.050) H 05/23/21 10:19 Urine pH 5.5 (5.0-7.0) 05/23/21 11:40 Ur Specific [place] 1.015 (1.005-1.030) 05/23/21 11:40 Glucose (UA)(Auto) Negative (Negative) 05/23/21 11:40 Urine Ketones Negative (Negative) 05/23/21 11:40 Urine Blood 3+ (Negative) H 05/23/21 11:40 Urine Nitrite Negative (Negative) 05/23/21 11:40 Ur Leukocyte Esterase 1+ (Negative) H 05/23/21 11:40 Urine Total Protein Trace (Negative) H 05/23/21 11:40 Ur Specific [place] (HCG) 1.015 (1.005-1.030) 05/23/21 12:04 Urine Test Neg (NEG) 05/23/21 12:04 Opiates Screen Positive (NEGATIVE) H 05/23/21 11:40 Methadone Screen Negative (NEGATIVE) 05/23/21 11:40 Ur Barbiturates Screen Negative (NEGATIVE) 05/23/21 11:40 Ur Phencyclidine Scrn Negative (NEGATIVE) 05/23/21 11:40 Amphetamines Screen Negative (NEGATIVE) 05/23/21 11:40 Benzodiazepines Screen Negative (NEGATIVE) 05/23/21 11:40 Cocaine Screen Negative (NEGATIVE) 05/23/21 11:40 Ur THC Screen Negative (NEGATIVE) 05/23/21 11:40 Monoscreen Neg (NEG) 05/23/21 10:19 Influenza Type A RNA Negative (NEGATIVE) 05/23/21 10:00 Influenza Type B RNA Negative (NEGATIVE) 05/23/21 10:00 SARS-CoV-2 RNA (RT-PCR) Positive (NEGATIVE) A 05/23/21 10:00 Microbiology Data (last 24 hrs): 05/23/21 10:01 Throat Culture & Sensitivity - Final NORMAL UPPER RESPIRATORY RACHEL GROWN. 05/23/21 10:52 Blood - Blood Anaerobic Blood Culture - Final Assessment And Plan - Plan Phsycial exam: General: Alert, In no apparent distress, Obese HEENT: Atraumatic, Normocephalic (Parotid and tonsillar lymphadenopathy. Bilateral lymphadenopathy down deep cervical tract), Other (Multiple lesions in various stages of healing to scalp, neck, and face. Lesions to face: ulcerated and look to be necrotic--are black with red wound edges. Lesions to scalp: Some are hard to palpation, others are boggy and leak pus filled foul odor and fluid. Lesion to right zygomatic arch has tunneling present in center of lesion. Lesion to left side of neck open with base of wound showing fibrin tissue. She has 2 new forming lesions to the chest, areas are slightly raised, circular, and red) Neck: Supple, 2+ carotid pulse no bruit Respiratory: Clear to auscultation bilaterally, Normal air movement Cardiovascular: No edema, Normal pulses Capillary refill: <2 Seconds Gastrointestinal: Normal bowel sounds Musculoskeletal: No clubbing, No swelling, No contractures Integumentary: No rashes, No breakdown, No significant lesion Neurological: Normal gait, Normal speech Conclusions/Impression: Antibiotics Vancomycin: 05/23current Levaquin: Assessment/plan Facial/scalp/neck/chest lesions of unknown origin -Patient states lesions started in February of last year after she received her COVID vaccine -Lesions start out small erythematous slightly raised papule, heel, and then come back as border more painful ulcerated plaque lesions -Patient reports heavy cocaine use between ages of [age] with a single isolated cocaine use in adulthood -Was positive for opiates on admission, states her brother gave her tramadol prior to admission to manage pain but denies chronic use -Inflammatory markers elevated: CRP 259, ESR 23. RPR positive, T. pallidum Ab pending. Pending labs include: pANCA, T. pallidum Ab, and HIV antibody rapid -Wound culture from scalp lesion pending -Wound care to open lesion on left side of neck: Apply Medihoney, alginate, and cover with foam Recommend continuing IV steroids -Recommend continuing IV vancomycin for MRSA coverage -Patient noted to be febrile on admission, T-max 103, afebrile since 05/24. Also noted to have elevated blood neutrophil count as well as unexplained hematuria. -Denies history of any autoimmune disorders Needs urgent dermatology consult/referral. Patient needs a biopsy. -Possible differentials include: Necrotizing vasculitis secondary to cocaine use, pyoderma gangrenosum like facial ulcers secondary to cocaine use conaminated with levamisole, sweets sydrome, tertiary syphilis, ulcerating skin cancer, keratoacanthoma, etc. COVID-19 -Patient asymptomatic, continue to monitor Medical management per primary team Plan of care discussed with Dr. Garcia Labor consultation Physician Review: Patient Assessed, Agree with Above Assessment and Plan
[2021-05-25 12:20] VITALS: BP 127/73; TEMP 97.7
[2021-05-25] MEDS ORDERED: LIDOCAINE 1% MPF 5 ML VIAL ONE (12:50)
[2021-05-25] MEDS: MORPHINE 4 MG/ML SYR IV PRN (13:04)
--- NOTE | 2021-05-25 13:31 | P.DS ---
Admission Date: 05/23/21 Discharge Date: 05/25/21 Discharge Condition: FAIR Reason for Admission: Facial cellulitis with multiple facial scabs Hospital Course: Course 36-year-old female with history of obesity, previous cocaine abuse quit many years ago, intermittent alcohol use, prolonged Covid positive status since the last 2 months admitted because of facial and scalp lesions. Lesions has been persistent since the last 2 months despite oral antibiotics although appears to have worsened in the last 2 weeks. She admits to prior history of difficult to heal lesions in the lower leg 2 years ago. On examination clinical suspicion for pyoderma gangrenosum with possible superimposed bacterial infection was suspected. General surgery was of consult was obtained and a biopsy done. Patient was also seen by ID. Patient lesions remain persistent but itching has improved. Patient will be sent home on antibiotics as well as empirical steroids for suspected autoimmune etiology of lesions. She will follow-up at the wound healing center with Dr. Rodas in 1 week for biopsy report and further management. There was no fever or chills. Mild leukocytosis on presentation resolved now. Dermatology referral was put on hold at this time but can be considered after biopsy report. Patient expressed understanding with the therapy plan and agreeable. She will be discharged home today - Physical Exam General: Alert, In no apparent distress, Oriented x3 HEENT: multiple facial and scalp scabs of various sizes, necrotic eschar Neck: Supple, 2+ carotid pulse no bruit, No LAD, Without JVD or thyroid abnormality Respiratory: Clear to auscultation bilaterally, Normal air movement Cardiovascular: Regular rate/rhythm, Normal S1 S2, No murmurs Gastrointestinal: Normal bowel sounds, Soft and benign, Non-distended, No tenderness Musculoskeletal: No clubbing, No swelling, Swelling, Erythema, Tenderness Integumentary: Skin lesion, Tenderness/swelling, Erythema, Warmth Neurological: Normal gait, Normal speech, Normal strength at 5/5 x4 extr, Normal tone, Sensation intact, Cranial nerves 3-12 intact, Normal affect Lymphatics: No axilla or inguinal lymphadenopathy Studies Vital Signs/Physical Exam: Temp Pulse Resp BP Pulse Ox 97.7 F 72 18 127/73 99 05/25/21 12:00 05/25/21 12:00 05/25/21 12:00 05/25/21 12:00 05/25/21 12:00 Laboratory Data at Discharge: WBC 10.50 K/uL (4.3-10.9) D 05/24/21 06:12 Hgb 11.4 g/dL (12.0-15.0) L 05/24/21 06:12 Hct 34.2 % (36.0-45.0) L 05/24/21 06:12 Plt Count 230 K/uL (152-406) 05/24/21 06:12 Sodium 135 mmol/L (136-145) L 05/24/21 06:12 Potassium 3.5 mmol/L (3.5-5.1) 05/24/21 06:12 BUN 10 mg/dL (7-18) 05/24/21 06:12 Creatinine 0.65 mg/dL (0.55-1.3) 05/24/21 06:12 Glucose 88 mg/dL (74-106) 05/24/21 06:12 Total Bilirubin 1.2 mg/dL (0.2-1.0) H 05/23/21 10:19 AST 108 U/L (15-37) H 05/23/21 10:19 ALT 252 U/L (12-78) H 05/23/21 10:19 Alkaline Phosphatase 205 U/L (45-117) H 05/23/21 10:19 Lipase 97 U/L (73-393) 05/23/21 10:19 Home Medications: Lactobacillus Acidophilus [Acidophilus] 1 each PO DAILY #30 tablet 05/25/21 Levofloxacin [Levaquin] 500 mg PO DAILY #10 tablet 05/25/21 predniSONE [Prednisone] 20 mg PO DAILY #20 tablet 05/25/21 New Medications: Lactobacillus Acidophilus [Acidophilus] 1 each PO DAILY #30 tablet Levofloxacin [Levaquin] 500 mg PO DAILY #10 tablet predniSONE [Prednisone] 20 mg PO DAILY #20 tablet Diet: Regular Activity: Ad luiz Followup: Natanael Rodas MD [ACTIVE - CAN ADMIT] - NONE,NONE [Primary Care Provider] - 06/01/21 8:00 am (wound healing center next Monday 8 am ) Dave Chapman DO [ACTIVE - CAN ADMIT] - Physician Review: Patient Assessed, Agree with Above Assessment and Plan Time spent managing pt's care (in minutes): 35
[2021-05-25] MEDS ORDERED: SILVER NITRATE 1 APPL TOP ONE (14:00)
[2021-05-25] MEDS ORDERED: VANCOMYCIN 1.5 GM in NA CHLORIDE 0.9% 500 ML IVPB SCH (17:00)
--- NOTE | 2021-05-25 19:44 | CON ---
Date of Consultation: 05/25/2021 Diagnosis: Multiple facial, trunk, and body ulcerated lesions. History Of Present Illness: This is a case of a 36-year-old patient, admitted to the hospital for mu ltiple medical problems, also cellulitis, but also she has unknown origin multiple ulcerated lesions on her body and a surgical consult was obtained for incisional biopsy to rule out cancer versus autoi mmune disease. She denies any trauma. She denies any new medications other than obviously she is va ccinated and she was having COVID 4 times. This problem has been happening for the last 3 months. S he is still picking at it because they itch. She was admitted to the hospital and started antibiotic s, also steroids and she see some improvement after the steroid was started. Allergies: AMOXICILLIN. Medications: None. Past Surgical History: Include tubal ligation. Family History: Noncontributory. Social History: She does not smoke. Drinks alcohol occasionally. Review of Systems: Denies any shortness of breath, any chest pain, or any fever. Ten points otherwise unremarkable. No family member sick at home. No recent traveling out of the country. Medications: No new medications. Physical Examination: General: The patient is awake, alert. HEENT: Pupils are equal and reactive. Anicteric. Neck: Supple. Chest: Clear. Heart: S1, S2. Abdomen: Soft and depressible. No guarding or rebound. No peritoneal signs. Extremities: Good capillary refill. Integumentary: The patient has multiple ulcerated lesions including the scalp, face, neck, and chest region. They have same characteristics which are basically a scab over the area. I see some new le sions that she has over the chest and neck, which she has claimed this is the way it looks before the other ones develop and for me it look like it may be an autoimmune disease Pyoderma gangr enosum characteristic. They have some superimposed bacterial colonization, although I do not believe that is the main source of that. Obviously, the biopsy will be done and we will rule out any sarcom as or malignancy, but at the same time, an autoimmune disease is higher than that. Conjunctiva is no t involved. Nails not involved. Blood Work: Reviewed shows WBC count at one point, it was 16, now is 10, platelets of 230. Potassiu m 3.5. Toxicology positive for opioids. She is active for COVID. RPR reactive. Assessment: A 36-year-old patient with multiple lesions on her trunk, unknown etiology. All looks t he same characteristic, comes in and developed into some redness, then ulceration followed by forming out of scab. They aged, so she picks at them and again a little worse. Plan: We are trying to rule out autoimmune disease, obviously malignancy including sarcomas are in t he differential diagnosis. This has a characteristic of some autoimmune disease. Her conjunctiva is not involved. It does not look like a Campbell-Jonah, does not look like a reaction to medications since she is not taking any at this moment, although Pyoderma gangrenosum is also in differential di agnosis. We asked her once again the importance of not touching the area. She is currently on antib iotics and also steroids, but I am going to do the biopsy and we are going to send it fresh to see if the pathologist can help us with the diagnosis. The benefits, alternatives, and risks of incisional biopsy fully explained which include, but not limited to infection, bleeding, damage to adjacent str uctures, anesthesia complication, nonhealing wound, [place], and even . She also understands this ma y not relieve symptoms. She might need more than one surgical intervention. She understands this is a diagnostic procedure. She has to follow with the [facility] as an outpatient. She is also wel come to come [facility], so we can help her with the wounds she already has, althoug h we might not be able to prevent them from happening in the future unless she see a specialist derma tologist for it. We have several areas. We noticed the area of the neck is transition between full- blown ulcer and a new formation. I believe that area may show what we need about the tissue and also the new area getting sick. Hopefully, that transition help also the pathologist to determine t he diagnosis. Procedure: Incisional biopsy of neck ulcerated mass. Under aseptic conditions, lidocaine viscous for local anesthetic and using an 11 blade, we proceeded to get ready for the biopsy. A time-out was called. Local anesthetic 1% plain was injected followed by removing the piece of the area with 11 blade. Hemostasis obtained with pressure. The patient to lerated the procedure well. The patient covered with sterile dressings. JANEE/JOSE L Voice ID: [id number] Report ID: [id number]
[2021-05-27 15:22] LABS: HIV AG/AB 4TH GEN Reactive (Non-reactive)
== END 2021-05-25 15:09 | disposition home or self-care (01) | DRG 977 ==
LOC: ER 09:33 → ERHOLD 14:01 → 4TH 14:50
PROVIDERS: ADMIT Hospitalist; ATTEND Hospitalist
PROC: 0HB4XZX Excision of Neck Skin, External Approach, Diagnostic (ICD-10-PCS; principal; 2021-05-25)
DX: L98.9 Disorder of the skin and subcutaneous tissue, unspecified (principal); B20 Human immunodeficiency virus [HIV] disease; U07.1 COVID-19; L03.211 Cellulitis of face; B37.0 Candidal stomatitis; L98.8 Other specified disorders of the skin and subcutaneous tissue; L98.499 Non-pressure chronic ulcer of skin of other sites with unspecified severity; Z88.0 Allergy status to penicillin; E66.9 Obesity, unspecified; Z68.39 Body mass index [BMI] 39.0-39.9, adult
CPT/HCPCS: 0240U; 36415; 70481; 71275; 74177; 80048; 80076; 80202; 80307; 81003; 81025; 83036; 83605; 83690; 84145; 85025; 85652; 86021; 86140; 86308; 86592; 86593; 86701; 86702; 86780; 87040; 87070; 87081; 87205; 87389; 88305; 96365; 96366; 96375; 99285; J1720; J2270; J2405; J3370; J7030; J7040; Q9967

== ENCOUNTER 2021-06-03 07:43 | Emergency (ER) | payer OTHER ==
[2021-06-03] MEDS ORDERED: HYDROCODONE/APAP 10/325 TAB ONE (08:01)
[2021-06-03] MEDS ORDERED: KETOROLAC 30 MG/ML INJ ONE (08:01)
--- NOTE | 2021-06-03 09:19 | RAD REPORT ---
EXAM DESCRIPTION: US - Lower Extremity Arterial Bilat - 06/03/2021 9:14 am CLINICAL HISTORY: PAIN Leg pain COMPARISON: No comparisons TECHNIQUE: Bilateral lower extremity arterial Doppler examination was performed with maliha wong FINDINGS: Triphasic waveforms are seen throughout both lower extremity arterial systems to the level of the michel salis pedis arteries. No flow-limiting stenosis or occlusion. Villa's cysts are present bilaterally, slightly larger on the left measuring 3.5 x 1.7 cm. IMPRESSION: No evidence of significant peripheral vascular disease.
--- NOTE | 2021-06-03 09:23 | EDPHYS ---
Physician Documentation [facility] Name: Mary Napier Age: 36 yrs Sex: Female : 1985 Arrival Date: 06/03/2021 Time: 07:44 Bed 24 Private MD: ED Physician Reynaldo Linda HPI: 06/03 08:17 This 36 yrs old Female presents to ER via Ambulatory with complaints of Knee kb Pain, Can't walk. 08:17 The patient presents with pain, that is acute. The complaints affect the right knee and kb left knee. Context: The problem was sustained at home, resulted from an unknown cause, the patient is not able to bear weight, the patient is not able to ambulate, Problem is a result from a previous injury: No. Onset: The symptoms/episode began/occurred today, at 00:30. Modifying factors: The symptoms are alleviated by nothing. the symptoms are aggravated by weight bearing. Associated signs and symptoms: The patient has no apparent associated signs or symptoms. Treatment prior to arrival includes: gabapentin. Severity of symptoms: At their worst the symptoms were moderate, in the emergency department the symptoms are unchanged. The patient has not experienced similar symptoms in the past. The patient has not recently seen a physician. Pt reports bilateral knee pain that started at 0030. States the pain feels like it is in the joint and radiates down leg. Denies pain above the knee. Denies injury or trauma. . - Immunization history:: Adult Immunizations up to date. - Social history:: Smoking status: Patient denies any tobacco usage or history of. ROS: 08:16 Constitutional: Negative for fever, chills, and weight loss. kb 08:16 MS/extremity: Positive for pain, of the right knee and left knee. 08:16 All other systems are negative. Exam: 08:16 Constitutional: This is a well developed, well nourished patient who is awake, alert, kb and in no acute distress. Head/Face: Normocephalic, atraumatic. ENT: Moist Mucous membranes Cardiovascular: Regular rate and rhythm with a normal S1 and S2. No gallops, murmurs, or rubs. No pulse deficits. Respiratory: Respirations even and unlabored. No increased work of breathing. Talking in full sentences Skin: Warm, dry with normal turgor. Normal color. Neuro: Awake and alert, GCS 15, oriented to person, place, time, and situation. Moves all extremities. Normal gait. Psych: Awake, alert, with orientation to person, place and time. Behavior, mood, and affect are within normal limits. 08:16 Musculoskeletal/extremity: Extremities: grossly normal except: noted in the right knee and left knee: pain, ROM: intact in all extremities, Circulation is intact in all extremities. Sensation intact. Weight bearing: is unable to bear weight. Vital Signs: 07:53 BP 156 / 87; Pulse 75; Resp 17; Temp 97.6; Pulse Ox 100% ; Weight 104.33 kg; Height 5 jh6 ft. 4 in. (162.56 cm); Pain 10/10; 09:30 BP 108 / 64; Pulse 75; Resp 17; Pulse Ox 100% ; jh6 10:00 BP 112 / 64; Pulse 72; Resp 17; Pulse Ox 100% ; Pain 3/10; jh6 07:53 Body Mass Index 39.48 (104.33 kg, 162.56 cm) 6 MDM: 07:48 Patient medically screened. kb 08:16 Data reviewed: vital signs, nurses notes. Data interpreted: Pulse oximetry: on room air kb is 100 %. Interpretation: normal. 09:22 Counseling: I had a detailed discussion with the patient and/or guardian regarding: the kb historical points, exam findings, and any diagnostic results supporting the discharge/admit diagnosis, radiology results, the need for outpatient follow up, a family practitioner, to return to the emergency department if symptoms worsen or persist or if there are any questions or concerns that arise at home. 06/03 08:03 Order name: LE Arterial Bilateral; Complete Time: 09:21 kb Administered Medications: 08:00 Drug: Ketorolac 60 mg Route: IM; Site: right gluteus; 6 09:30 Follow up: Response: No adverse reaction; Pain is decreased 6 08:00 Drug: [place] (HYDROcodone-acetaminophen) 10 mg-325 mg 1 tabs Route: PO; jh6 09:30 Follow up: Response: No adverse reaction; Pain is increased 6 Disposition: 08:03 36-year-old female presents for bilateral knee to foot pain that began at midnight. ms3 Patient states pain is 10/10. Patient states she took gabapentin prior to arrival without relief. On exam patient's heart rate and rhythm are regular without murmurs rubs or gallops, lungs are clear to auscultation bilaterally. Skin is significant for ulcerations of the face and scalp. Dorsalis pedis pulse 2/4 bilateral lower extremities, sensation intact. Discussed case with Yolie Reddy, nurse practitioner, and agree with plan.. 19:31 Co-signature as Attending Physician, Reynaldo Linda DO I agree with the assessment and ms3 plan of care. PA/MIG TIG WELDER's history reviewed, patient interviewed, and examined. HPI: See my note My personal exam of patient reveals: see my note I agree with assessment and care plan and confirm the diagnosis (es) above. Disposition Summary: 06/03/21 09:22 Discharge Ordered Location: Home kb Condition: Stable kb Diagnosis - Pain in left knee kb - Pain in right knee kb Followup: kb - With: Emergency Department - When: As needed - Reason: Worsening of condition Followup: kb - With: Private Physician - When: 2 - 3 days - Reason: Recheck today's complaints, Continuance of care, Re-evaluation by your physician Discharge Instructions: - Discharge Summary Sheet kb - Musculoskeletal Pain kb - Acute Knee Pain, Adult, [id number] kb Forms: - Medication Reconciliation Form kb - Thank You Letter kb - Antibiotic Education kb - Prescription Opioid Use kb - Work release form jh6 Prescriptions: - Diclofenac Sodium 75 mg Oral tablet,delayed release (DR/EC) - take 1 tablet by ORAL route 2 times per day As needed; 30 tablet; Refills: 0, kb Product Selection Permitted Signatures: Dispatcher [employer] EDTenisha Fuentes FNP-C FNP-Reynaldo Garcia DO DO ms3 Eugenia Vincent RN RN jh6 Corrections: (The following items were deleted from the chart) 20:07 19:31 Co-signature as Attending Physician, Tenisha RAMIRES I agree with the ms3 assessment and plan of care. PA/MIG TIG WELDER's history reviewed, patient interviewed, and examined. HPI: See my note My personal exam of patient reveals: see my note I agree with assessment and care plan and confirm the diagnosis (es) above. ms3
--- NOTE | 2021-06-03 09:23 | ER ---
Nurse's Notes [facility] Name: Mary Napier Age: 36 yrs Sex: Female : 1985 Arrival Date: 06/03/2021 Time: 07:44 Bed 24 Private MD: Diagnosis: Pain in left knee;Pain in right knee Presentation: 06/03 07:53 Chief complaint: Patient states: reports onset of bilat knee pain that radiates to 6 lower leg. sharp, crampy in nature. no injury or swelling per pt. Coronavirus screen: Vaccine status: Patient reports receiving the 2nd dose of the covid vaccine. Ebola Screen: Patient denies exposure to infectious person. Patient denies travel to an Ebola-affected area in the 21 days before illness onset. Initial Sepsis Screen: Does the patient meet any 2 criteria? No. Patient's initial sepsis screen is negative. Does the patient have a suspected source of infection? No. Patient's initial sepsis screen is negative. Risk Assessment: Do you want to hurt yourself or someone else? Patient reports no desire to harm self or others. Onset of symptoms was June 03, 2021. 07:53 Method Of Arrival: Ambulatory [facility] 07:53 Acuity: SOFIA 4 6 Triage Assessment: 07:55 General: Appears uncomfortable, Behavior is calm, cooperative. Pain: Denies pain. 6 Complains of pain in right leg, posterior aspect of left knee and left knee Pain radiates to right leg and left leg Pain currently is 10 out of 10 on a pain scale. Quality of pain is described as crampy, sharp, shooting. - Immunization history:: Adult Immunizations up to date. - Social history:: Smoking status: Patient denies any tobacco usage or history of. Screenin:09 Abuse screen: Denies threats or abuse. Nutritional screening: No deficits noted. [facility] Tuberculosis screening: No symptoms or risk factors identified. Fall Risk Gait- Impaired (20 pts.). Assessment: 08:10 General: Appears distressed, see triage note. [facility] 09:30 Reassessment: Patient is alert, oriented x 3, equal unlabored respirations, skin jh6 warm/dry/pink. back from u/s states pain much better. Patient states feeling better. Patient states symptoms have improved. 09:30 Pain: Pain currently is 3 out of 10 on a pain scale. 6 Vital Signs: 07:53 BP 156 / 87; Pulse 75; Resp 17; Temp 97.6; Pulse Ox 100% ; Weight 104.33 kg; Height 5 6 ft. 4 in. (162.56 cm); Pain 10/10; 09:30 BP 108 / 64; Pulse 75; Resp 17; Pulse Ox 100% ; jh6 10:00 BP 112 / 64; Pulse 72; Resp 17; Pulse Ox 100% ; Pain 3/10; jh6 07:53 Body Mass Index 39.48 (104.33 kg, 162.56 cm) 6 ED Course: 07:44 Patient arrived in ED. am2 07:46 Tenisha Reddy FNP-C [facility] kb 07:46 Reynaldo Linda DO is Attending Physician. kb 07:53 Eugenia Vincent, KOFI is Primary Nurse. jh6 07:55 Triage completed. jh6 07:56 Arm band placed on right wrist. jh6 08:09 No provider procedures requiring assistance completed. jh6 08:10 Patient taken to ultrasound. via wheelchair. jh6 08:10 Bed in low position. Call light in reach. Side rails up X 1. jh6 09:14 US LE Arterial Bilateral In Process Unspecified. EDMS 10:04 Patient did not have IV access during this emergency room visit. jh6 Administered Medications: 08:00 Drug: Ketorolac 60 mg Route: IM; Site: right gluteus; jh6 09:30 Follow up: Response: No adverse reaction; Pain is decreased 6 08:00 Drug: [place] (HYDROcodone-acetaminophen) 10 mg-325 mg 1 tabs Route: PO; jh6 09:30 Follow up: Response: No adverse reaction; Pain is increased [facility] Outcome: 09:22 Discharge ordered by . kb 10:04 Discharged to home via wheelchair. jh6 10:04 Condition: improved 10:04 Discharge instructions given to patient, Instructed on discharge instructions, follow up and referral plans. Demonstrated understanding of instructions, follow-up care, medications, Prescriptions given X 1. 10:05 Patient left the ED. 6 Signatures: Dispatcher [employer] EDIA Tenisha Reddy FNP-C SALES PROPERTY MANAGER-Samantha Felipe am2 Hastedt, Eugenia, RN RN jh6
[2021-06-03 10:52] VITALS: TEMP 97.6; O2SAT 100
[2021-06-03 10:54] VITALS: BP 112/64
== END 2021-06-03 10:05 | disposition home or self-care (01) ==
LOC: ER 07:43
DX: M25.562 Pain in left knee (principal); M25.561 Pain in right knee
CPT/HCPCS: 93925; 96372; 99284

== ENCOUNTER 2021-08-25 07:32 | Emergency (ER) | payer OTHER ==
--- OUTSIDE RECORDS SUMMARY | 2021-08-25 07:35 | XMS REPORT | Continuity of Care Document ---
:1985 Author Organization [facility] t Address [address] [place] [address] Care Team Providers Name Role Phone Pcp, Does Not Have A Primary Care Physician [facility] Attending Clinician Unavailable Geovanny RN, L Attending Clinician Unavailable Checo Arguello RN, R Attending Clinician Unavailable Acosta LEWIS L Attending Clinician Unavailable Doctor Unassigned, Name Attending Clinician Unavailable Payers Payer Name Policy Type Policy Number Effective Date Expiration Date [facility] [id number] 2021 PPO 00:00:00 Problems Condition Condition Condition Status Onset Resolution Last Treating Co mments Source Name Details Category Date Date Treatment Clinician Date HIV HIV Disease Active Univers disease disease 4-14 ity of 00:00: [place] 00 Medical Branch Pyoderma Pyoderma Disease Active Unive rs gangrenosu gangrenosu 4-14 it y of m m 00:00: [place] [facility] Syphilis Syphilis Disease Active Unive rs 4-14 ity of 00:00: [place] 00 Medical Branch History of History of Disease Active U nivers tubal tubal 03 ity of ligation ligation 00:00: [place] [facility] Screening Screening Disease Active Overview: Univers for STD for STD 04-29 Formattin ity o f (sexually (sexually 00:00: g of this [place] transmitte transmitte 00 note Me dical d disease) d disease) might be Branch different from the original. 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 Other Other Disease Active Univers malaise malaise 2-03 ity of and and 00:00: [place] fatigue fatigue Medical Branch Allergies, Adverse Reactions, Alerts Allergy Allergy Status Severity Reaction(s) Onset Inactive Treating Comm ents Source Name Type Date Date Clinician Amoxicil Propensi Active Swelling Univ ers kai ty to 4-14 ity of adverse 00:00: [place] reaction 00 Medical s Branch AMOXICIL DRUG Active Hives Univers KAI INGREDI 4-14 ity of 00:00: [place] 00 [facility] Branch Social History Social Habit Start Date Stop Date Quantity Comments Source Alcohol intake 2021-07-29 2021-07-29 Current [place] of 00:00:00 00:00:00 non-drinker of [facility] alcohol [place] (finding) Tobacco use and 2012-10-25 2012-10-25 Never used Universit y of exposure 00:00:00 00:00:00 [facility] Sex Ass[birth year] At [birth year] Universit y of 00:00:00 00:00:00 [facility] Smoking Status Start Date Stop Date Source Never smoker [facility] Medications Ordered Filled Start Stop Current Ordering Indication Dosage Frequency Signature Comments Components Source Medication Medication Date Date Medication? Clinician (SIG) Name Name ondansetron Yes [id number] 4mg Take 1 Univers 4 mg tablet 5-05 tablet by ity of 00:00: mouth [place] 00 every 8 Medical (eight) Branch hours as needed for Nausea and Vomiting (N/V). ondansetron Yes [id number] 4mg Take 1 Univers 4 mg tablet 5-05 tablet by ity of 00:00: mouth [place] 00 every 8 Medical (eight) Branch hours as needed for Nausea and Vomiting (N/V). ondansetron Yes [id number] 4mg Take 1 Univers 4 mg tablet 5-05 tablet by ity of 00:00: mouth [place] 00 every 8 Medical (eight) Branch hours as needed for Nausea and Vomiting (N/V). No known No Univers medications 21 ity of 12:00: [place] 34 Medical Branch bictegrav-e Yes [id number] 1{tbl} Take 1 Univers mtricit-ten 4-21 tablet by ity of ofov ala 00:00: mouth [place] (BIKTARVY) 00 daily. Medical 50-200-25 Branch mg tablet bictegrav-e Yes [id number] 1{tbl} Take 1 Univers mtricit-ten 4-21 tablet by ity of ofov ala 00:00: mouth [place] (BIKTARVY) 00 daily. Medical 50-200-25 Branch mg tablet bictegrav-e Yes [id number] 1{tbl} Take 1 Univers mtricit-ten 4-21 tablet by ity of ofov ala 00:00: mouth [place] (BIKTARVY) 00 daily. Medical 50-200-25 Branch mg tablet bictegrav-e Yes [id number] 1{tbl} Take 1 Univers mtricit-ten 4-21 tablet by ity of ofov ala 00:00: mouth [place] (BIKTARVY) 00 daily. Medical 50-200-25 Branch mg tablet bictegrav-e Yes [id number] 1{tbl} Take 1 Univers mtricit-ten 4-21 tablet by ity of ofov ala 00:00: mouth [place] (BIKTARVY) 00 daily. Medical 50-200-25 Branch mg tablet bictegrav-e Yes [id number] 1{tbl} Take 1 Univers mtricit-ten 4-21 tablet by ity of ofov ala 00:00: mouth [place] (BIKTARVY) 00 daily. Medical 50-200-25 Branch mg tablet bictegrav-e Yes [id number] 1{tbl} Take 1 Univers mtricit-ten 4-21 tablet by ity of ofov ala 00:00: mouth [place] (BIKTARVY) 00 daily. Medical 50-200-25 Branch mg tablet bictegrav-e Yes [id number] 1{tbl} Take 1 Univers mtricit-ten 4-21 tablet by ity of ofov ala 00:00: mouth [place] (BIKTARVY) 00 daily. Medical 50-200-25 Branch mg tablet doxycycline 2021- Yes [id number] 100mg Take 1 Univers hyclate 100 4-21 05-20 capsule by i ty of mg capsule 00:00: 04:59 mouth 2 Udy as 00 :00 (two) Medical times Branch daily for 28 days. doxycycline 2021- Yes [id number] 100mg Take 1 Univers hyclate 100 4-21 05-20 capsule by i ty of mg capsule 00:00: 04:59 mouth 2 Duy as 00 :00 (two) Medical times Branch daily for 28 days. doxycycline 2021- Yes [id number] 100mg Take 1 Univers hyclate 100 4-21 05-20 capsule by i ty of mg capsule 00:00: 04:59 mouth 2 Duy as 00 :00 (two) Medical times Branch daily for 28 days. doxycycline 2021- Yes [id number] 100mg Take 1 Univers hyclate 100 4-21 05-20 capsule by i ty of mg capsule 00:00: 04:59 mouth 2 Duy as 00 :00 (two) Medical times Branch daily for 28 days. doxycycline 2021- Yes [id number] 100mg Take 1 Univers hyclate 100 4-21 05-20 capsule by i ty of mg capsule 00:00: 04:59 mouth 2 Duy as 00 :00 (two) Medical times Branch daily for 28 days. doxycycline 2021- Yes [id number] 100mg Take 1 Univers hyclate 100 4-21 05-20 capsule by i ty of mg capsule 00:00: 04:59 mouth 2 Duy as 00 :00 (two) Medical times Branch daily for 28 days. doxycycline 2021- Yes [id number] 100mg Take 1 Univers hyclate 100 4-21 05-20 capsule by i ty of mg capsule 00:00: 04:59 mouth 2 [place]uy as 00 :00 (two) Medical times Branch daily for 28 days. Immunizations Ordered Filled Immunization Date Status Comments [facility] e Immunization Name Name Td 1997-03-27 Completed University of 00:00:00 [facility] Td 1997-03-27 Completed University of 00:00:00 [facility] Td 1997-03-27 Completed University of 00:00:00 [facility] Td 1997-03-27 Completed University of 00:00:00 [facility] Td 1997-03-27 Completed University of 00:00:00 [facility] Td 1997-03-27 Completed University of 00:00:00 [facility] Td 1997-03-27 Completed University 00:00:00 [facility] Td 1997-03-27 Completed University 00:00:00 [facility] Td 1997-03-27 Completed [facility] 00:00:00 [facility] Procedures Procedure Date / Time Performing Clinician Source Performed EXTERNAL PROVIDER 2021-07-24 05:01:00 Doctor Unassigned, No [facility] RECORDS Name Medical Branch AUTHORIZATION TO RELEASE 2021-07-08 05:01:00 Doctor Unassigned, No [facility] PHI TO [facility] Name Medical Branch Encounters Start End Encounter Admission Attending Care Care Encounter Source Date/Time Date/Time Type Type Clinicians Facility Department ID 2021-08-25 2021-08-25 Outpatient [facility] [id number] Univers 09:00:00 09:00:00 [id number]-08-25 2021-08-25 Outpatient Jerome [facility] [id number] Univers 09:00:00 09:00:00 [facility] 2021-08-18 2021-08-18 Case Geovanny, UNIVERSIT [id number] Univers 00:00:00 00:00:00 Management Elisabeth L Y HEALTH [id number] ity of [id number] [id number] [address] 2021-08-05 2021-08-05 Case Checo Lymanco, UNIVERSIT [id number] Univers 00:00:00 00:00:00 Management Elisabeth R Y HEALTH [id number] [id number] [id number] [address] 2021-08-04 2021-08-04 Case Checo Arguello, UNIVERSIT [id number] Univers 00:00:00 00:00:00 Management Elisabeth R Y HEALTH [id number] [id number] [id number] [address] 2021-07-29 2021-07-29 [facility] [id number] Univers 09:00:00 09:00:00 ERIKA ity of [facility] 2021-07-27 2021-07-27 Telephone Acosta [facility] [id number] Univers 00:00:00 00:00:00 Judith L Y HEALTH [id number] [id number] [id number] [address] 2021-07-26 2021-07-26 [facility] [id number] Univers 00:00:00 00:00:00 Management Judith L Y HEALTH [id number] [id number] [id number] [address] 2021-07-24 2021-07-24 Orders Doctor SENAIT [id number] Univers 00:00:00 00:00:00 Only Unassigned, YANELY [id number] ity of [facility] [id number] Duy as [id number] [address] 2021-07-21 2021-07-21 [facility] [id number] Univers 00:00:00 00:00:00 Management Elisabeth R Y HEALTH [id number] [id number] [id number] [address] 2021-07-20 2021-07-20 Case Checo Arguello, [facility] [id number] Univers 00:00:00 00:00:00 Management Elisabeth R Y HEALTH [id number] [id number] [id number] [address] 2021-07-08 2021-07-08 Orders Doctor SENAIT [id number] Univers 00:00:00 00:00:00 Only Unassigned, YANELY [id number] ity of [facility] [id number] Duy as [id number] [facility] 009 Branch Results This patient has no known results.
[2021-08-25] MEDS ORDERED: ONDANSETRON 4 MG (ODT) TAB ONE (09:39)
[2021-08-25] MEDS ORDERED: HYDROCODONE/CHLORPHEN 5 ML/OSYR ONE (09:40)
--- NOTE | 2021-08-25 10:27 | EDPHYS ---
Physician Documentation [facility] Name: Mary Napier Age: 36 yrs Sex: Female : 1985 Arrival Date: 08/25/2021 Time: 07:34 Bed Waiting Private MD: ED Physician Chun Romero HPI: 08/25 09:00 This 36 yrs old Female presents to ER via Ambulatory with complaints of Cold cp Symptoms. 09:00 The patient or guardian reports cough, that is intermittent. cp 09:00 Onset: The symptoms/episode began/occurred 3 day(s) ago. Modifying factors: The cp symptoms are alleviated by nothing. Associated signs and symptoms: Pertinent positives: rhinorrhea, sore throat, vomiting, Pertinent negatives: chest pain, diarrhea, fever. Severity of symptoms: in the emergency department the symptoms are unchanged despite home interventions. 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 - Social history:: Smoking status: Patient denies any tobacco usage or history of. ROS: 09:05 Constitutional: Positive for body aches, Negative for fever, poor PO intake. cp 09:05 Eyes: Negative for injury, pain, redness, and discharge. cp 09:05 ENT: Positive for sore throat. 09:05 Cardiovascular: Negative for chest pain. 09:05 Respiratory: Positive for cough, "sounds productive", Negative for shortness of breath, wheezing. 09:05 Abdomen/GI: Positive for vomiting, Negative for abdominal pain, diarrhea, constipation. Exam: 09:10 Constitutional: The patient appears in no acute distress, alert, awake, non-toxic, well cp developed, well nourished, obese. 09:10 Head/Face: Normocephalic, atraumatic. cp 09:10 Eyes: Periorbital structures: appear normal, Pupils: equal, round, and reactive to light and accomodation, Extraocular movements: intact throughout, Conjunctiva: normal, no exudate, no injection, Sclera: no appreciated abnormality, Lids and lashes: appear normal, bilaterally. 09:10 ENT: External ear(s): are unremarkable, Ear canal(s): are normal, clear, TM's: dullness, bilaterally, Nose: is normal, Mouth: Lips: moist, Oral mucosa: pink and intact, moist, Posterior pharynx: Airway: no evidence of obstruction, patent, Tonsils: no enlargement, no exudate, Uvula: non-edematous, erythema, that is mild, exudate, is not appreciated. 09:10 Neck: ROM/movement: is normal, is supple, without pain, no range of motions limitations, no meningismus, Lymph nodes: no appreciated lymphadenopathy. 09:10 Chest/axilla: Inspection: normal. 09:10 Cardiovascular: Rate: normal, Rhythm: regular. 09:10 Respiratory: the patient does not display signs of respiratory distress, Respirations: normal, no use of accessory muscles, no retractions, labored breathing, is not present, Breath sounds: are clear throughout, no decreased breath sounds, rhonchi, no stridor. 09:10 Abdomen/GI: Exam negative for discomfort, distension, guarding, Inspection: abdomen appears normal. 09:10 Skin: no rash present. Vital Signs: 08:01 Pulse 94; Resp 16; Temp 98.1(TE); Pulse Ox 99% on R/A; Weight 104.33 kg; Height 5 ft. 4 ss in. (162.56 cm); 08:01 BP 130 / 90; Pain 9/10; ss 08:04 Pulse 86; ss 08:01 Body Mass Index 39.48 (104.33 kg, 162.56 cm) ss MDM: 09:00 Differential diagnosis: bronchitis, flu, URI. cp 10:27 Patient medically screened. cp 06 09:54 Data reviewed: vital signs, nurses notes, lab test result(s), and as a result, I will cp discharge patient. Counseling: I had a detailed discussion with the patient and/or guardian regarding: the historical points, exam findings, and any diagnostic results supporting the discharge/admit diagnosis, lab results, to return to the emergency department if symptoms worsen or persist or if there are any questions or concerns that arise at home. 08/25 08:05 Order name: Flu; Complete Time: 10:28 ss 08/25 08:05 Order name: Strep; Complete Time: 10:28 08/25 08:05 Order name: COVID-19 SARS RT PCR (Document "Date of Onset" if Symptomatic) 08/25 09:00 Order name: Throat Culture EDMS Administered Medications: 08/25 09:35 Drug: Tussionex Pennkinetic ER (chlorpheniramine-hydrocodone) Suspension 5 ml Route: PO;ss 10:30 Follow up: Response: No adverse reaction 09:35 Drug: Zofran (Ondansetron) 4 mg Route: PO; ss 10:30 Follow up: Response: No adverse reaction Disposition: 11:25 Co-signature as Attending Physician, Chun Romero MD I agree with the assessment and kdr plan of care. Disposition Summary: 08/25/21 10:27 Discharge Ordered Location: Home cp Problem: new cp Symptoms: have improved cp Condition: Stable cp Diagnosis - Acute upper respiratory infection, unspecified cp Followup: cp - With: Private Physician - When: 2 - 3 days - Reason: Worsening of condition Discharge Instructions: - Discharge Summary Sheet cp - Viral Respiratory Infection cp Forms: - Medication Reconciliation Form cp - Work release form ss - Thank You Letter cp - Antibiotic Education cp - Prescription Opioid Use cp Prescriptions: - Bromfed DM 2-30-10 mg/5 mL Oral syrup - take 10 milliliter by ORAL route every 4-6 hours; 200 milliliter; Refills: 0, cp Product Selection Permitted - Zofran 4 mg Oral Tablet - take 1 tablet by ORAL route every 12 hours As needed; 20 tablet; Refills: 0, cp Product Selection Permitted Signatures: Dispatcher [employer] EDSD Chun Romero MD MD kdr Smirch, Shelby, RN RN ss Suman Andujar PA PA cp Corrections: (The following items were deleted from the chart) 08/26 09:49 08/25 09:00 Associated signs and symptoms: Pertinent positives: rhinorrhea, vomiting, cp Pertinent negatives: chest pain, diarrhea, fever, cp
--- NOTE | 2021-08-25 10:27 | ER ---
Nurse's Notes [facility] Name: Mary Napier Age: 36 yrs Sex: Female : 1985 Arrival Date: 08/25/2021 Time: 07:34 Bed Waiting [facility] MD: Diagnosis: Acute upper respiratory infection, unspecified Presentation: 08/25 08:01 Chief complaint: Patient states: cough, runny nose, "hot" that began Monday and became ss worse last night. Coronavirus screen: Client denies travel out of the [place] in the last 14 days. Ebola Screen: Patient denies exposure to infectious person. Patient denies travel to an Ebola-affected area in the 21 days before illness onset. Initial Sepsis Screen: Does the patient meet any 2 criteria? No. Patient's initial sepsis screen is negative. Does the patient have a suspected source of infection? No. Patient's initial sepsis screen is negative. Risk Assessment: Do you want to hurt yourself or someone else? Patient reports no desire to harm self or others. Onset of symptoms was August 22, 2021. 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 - Social history:: Smoking status: Patient denies any tobacco usage or history of. Screenin:11 Abuse screen: Denies threats or abuse. Denies injuries from another. Nutritional ss screening: No deficits noted. Tuberculosis screening: Never had TB. Fall Risk None identified. Assessment: 08:01 Reassessment: Patient appears in no apparent distress at this time. Patient and/or ss family updated on plan of care and expected duration. Pain level reassessed. Patient is alert, oriented x 3, equal unlabored respirations, skin warm/dry/pink. General: Appears in no apparent distress. comfortable, Behavior is calm, cooperative. Neuro: Level of Consciousness is awake, alert, obeys commands, Oriented to person, place, time, situation. Cardiovascular: Capillary refill < 3 seconds is brisk in bilateral fingers. Respiratory: Airway is patent Respiratory effort is even, unlabored, Respiratory pattern is regular, symmetrical. Derm: Skin is intact, is healthy with good turgor, Skin is pink, warm \\T\\ dry. normal. 09:57 Reassessment: Patient appears in no apparent distress at this time. Patient and/or ss family updated on plan of care and expected duration. Pain level reassessed. Patient is alert, oriented x 3, equal unlabored respirations, skin warm/dry/pink. awaiting covid results. Vital Signs: 08:01 Pulse 94; Resp 16; Temp 98.1(TE); Pulse Ox 99% on R/A; Weight 104.33 kg; Height 5 ft. 4 ss in. (162.56 cm); 08:01 BP 130 / 90; Pain 9/10; ss 08:04 Pulse 86; ss 08:01 Body Mass Index 39.48 (104.33 kg, 162.56 cm) ss ED Course: 07:34 Patient arrived in ED. as 08:02 Triage completed. ss 08:03 Arm band placed on right wrist. ss 08:11 Strep Sent. ss 08:11 COVID-19 SARS RT PCR (Document "Date of Onset" if Symptomatic) Sent. ss 08:11 Flu Sent. ss 08:19 Suman Andujar PA is PHCP. cp 08:19 Chun Romero MD is Attending Physician. cp 10:40 Ellen [place], KOFI is Primary Nurse. ss 10:40 No provider procedures requiring assistance completed. Patient did not have IV access ss during this emergency room visit. Administered Medications: 09:35 Drug: Tussionex Pennkinetic ER (chlorpheniramine-hydrocodone) Suspension 5 ml Route: PO;ss 10:30 Follow up: Response: No adverse reaction ss 09:35 Drug: Zofran (Ondansetron) 4 mg Route: PO; ss 10:30 Follow up: Response: No adverse reaction ss Medication: 08:01 VIS not applicable for this client. ss Outcome: 10:27 Discharge ordered by . cp 10:40 Discharged to home ambulatory, with family. ss 10:40 Condition: good 10:40 Discharge instructions given to patient, family, Instructed on discharge instructions, follow up and referral plans. medication usage, Demonstrated understanding of instructions, follow-up care, medications, Prescriptions given X 2. 10:41 Patient left the ED. ss Signatures: Yumiko Rodas Shelby, RN RN ss Suman Andujar PA PA cp
[2021-08-25 10:45] VITALS: BP 130/90; TEMP 98.1; O2SAT 99
== END 2021-08-25 10:41 | disposition home or self-care (01) ==
LOC: ER 07:32
DX: J06.9 Acute upper respiratory infection, unspecified (principal); Z20.822 Contact with and (suspected) exposure to COVID-19; Z88.1 Allergy status to other antibiotic agents
CPT/HCPCS: 87070; 87081; 87804 ×2; 99283; U0003

== ENCOUNTER 2022-03-24 08:57 | Emergency (ER) | payer OTHER ==
--- OUTSIDE RECORDS SUMMARY | 2022-03-24 09:02 | XMS REPORT | Continuity of Care Document ---
:1985 Author Organization [facility] t Address [address] [place] [address] Care Team Providers Name Role Phone Pcp, Patient Does Not Have A Primary Care Physician [id number] ERIKA ZEPEDA Attending Clinician Unavailable Erika Lua Attending Clinician [facility] Attending Clinician Unavailable Doctor Unassigned, [place] Attending Clinician Unavailable Checo Arguello RN, Elisabeth Cano Attending Clinician Unavailable Praveen Oswald Attending Clinician Geovanny KIRBY, Elisabeth Day Attending Clinician Unavailable Judith Shane LVN Attending Clinician Unavailable Alison Mccallum MA Attending Clinician Unavailable Payers Payer Name Policy Type Policy Number Effective Date Expiration Date S ource Problems Condition Condition Condition Status Onset Resolution Last Treating Co mments Source Name Details Category Date Date Treatment Clinician Date HIV HIV Disease Active Univers disease disease 14 ity of 00:00: [address] Branch Pyoderma Pyoderma Disease Active Unive rs gangrenosu gangrenosu 4-14 it y of m m 00:00: [address] Syphilis Syphilis Disease Active Overview: Un vito -14 Formattin ity of 00:00: g of this [place] 00 note Medical might be Branch different from the original. RPR 1:32 2, s/p doxycycli ne 28 days (amox algi) History of History of Disease Active U nivers tubal tubal 2-03 ity of ligation ligation 00:00: [place] 00 Medical Branch Screening Screening Disease Active Overview: Univers for STD for STD 04-29 Formattin ity o f (sexually (sexually 00:00: [place] of this [place] transmitte transmitte 00 note Me dical d disease) d disease) might be Branch different from the original. 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 Other Other Disease Active Univers malaise malaise 04-29 ity of and and 00:00: [place] fatigue fatigue 00 Medical Branch Allergies, Adverse Reactions, Alerts Allergy Allergy Status Severity Reaction(s) Onset Inactive Treating Comm ents Source Name Type Date Date Clinician Amoxicil Propensi Active Swelling Univ ers kai ty to 4-14 ity of adverse 00:00: [place] reaction 00 [facility] s Branch AMOXICIL DRUG Active Hives Univers KAI INGREDI 4-14 ity of 00:00: [place] 00 Medical Branch Social History Social Habit Start Date Stop Date Quantity Comments Source Exposure to 2021-12-24 2022-01-03 Not sure [facility] SARS-CoV-2 00:00:00 09:46:00 [facility] (event) Branch Alcohol intake 2022-01-03 2022-01-03 Current [facility] 00:00:00 00:00:00 non-drinker of [facility] alcohol (finding) [place] Tobacco use and 2012-10-25 2012-10-25 Smokeless tobacco Un iversity of exposure 00:00:00 00:00:00 non-user [facility] Sex [birth year] Universit y of 00:00:00 00:00:00 [place] [facility] Smoking Status Start Date Stop Date Source Never smoked tobacco [facility] Medications Ordered Filled Start Stop Current Ordering Indication Dosage Frequency Signature Comments Components Source Medication Medication Date Date Medication? Clinician (SIG) Name Name KATHIEVANESSAMaryRakesh 2021-03 Yes [id number] TAKE 1 Uni vers 50-200-25 2-19 TABLET BY ity o f mg tablet 00:00: MOUTH [place] 00 EVERY DAY Medical Branch bictegrav-e Yes [id number] 1{tbl} Take 1 Univers mtricit-ten 6-06 tablet by ity of ofov ala 00:00: mouth [place] (BIKTARVY) 00 daily. Medical 50-200-25 Branch mg tablet bictegrav-e Yes [id number] 1{tbl} Take 1 Univers mtricit-ten 6-06 tablet by ity of ofov ala 00:00: mouth [place] (BIKTARVY) 00 daily. Medical 50-200-25 Branch mg tablet bictegrav-e Yes [id number] 1{tbl} Take 1 Univers mtricit-ten 6-06 tablet by ity of ofov ala 00:00: mouth [place] (BIKTARVY) 00 daily. Medical 50-200-25 Branch mg tablet bictegrav-e Yes [id number] 1{tbl} Take 1 Univers mtricit-ten 6-06 tablet by ity of ofov ala 00:00: mouth [place] (BIKTARVY) 00 daily. Medical 50-200-25 Branch mg tablet bictegrav-e Yes [id number] 1{tbl} Take 1 Univers mtricit-ten 6-06 tablet by ity of ofov ala 00:00: mouth [place] (BIKTARVY) 00 daily. Medical 50-200-25 Branch mg tablet bictegrav-e 2021-2021- No [id number] 1{tbl} Take 1 Univers mtricit-ten 6-06 12-19 tablet by it y of ofov ala 00:00: 00:00 mouth [place] (BIKTARVY) 00 :00 daily. Medical 50-200-25 Branch mg tablet bromphenira Yes Rodney s mine-pseudo 6-05 ity of ephedrine-D 00:00: [facility] 00 Medical mg/5 mL Branch syrup bromphenira 2021-2021- No Unive rs mine-pseudo 6-05 10-10 ity of ephedrine-D 00:00: 00:00 [facility] 2 00 :00 Medical mg/5 mL Branch syrup bromphenira 2021-0 2021- No Unive rs mine-pseudo 6-05 10-10 ity of ephedrine-D 00:00: 00:00 [facility] 230- 00 :00 Medical mg/5 mL Branch syrup ondansetron Yes [id number] 4mg Take 1 Univers 4 mg tablet 5-05 tablet by ity of 00:00: mouth [place] 00 every 8 Medical (eight) Branch hours as needed for Nausea and Vomiting (N/V). ondansetron Yes [id number] 4mg Take 1 Univers 4 mg tablet 5-05 tablet by ity of 00:00: mouth [place] 00 every 8 Medical (eight) Branch hours as needed for Nausea and Vomiting (N/V). ondansetron 2021- No [id number] 4mg Take 1 Univers 4 mg tablet 5-05 10-10 tablet by it y of 00:00: 00:00 mouth [place] 00 :00 every 8 Medical (eight) Branch hours as needed for Nausea and Vomiting (N/V). ondansetron 2021-2021- No [id number] 4mg Take 1 Univers 4 mg tablet 5-05 10-10 tablet by it y of 00:00: 00:00 mouth [place] 00 :00 every 8 Medical (eight) Branch hours as needed for Nausea and Vomiting (N/V). diclofenac Yes TAKE 1 Unive rs 75 mg EC 3-10 TABLET BY ity of tablet 00:00: [facility] 00 TWICE A Medical DAY Branch NEEDED diclofenac 2021- No TAKE 1 Univ ers 75 mg EC 3-10 10-10 TABLET BY ity o f tablet 00:00: 00:00 [facility] [place] 00 :00 TWICE A Medical DAY Branch NEEDED diclofenac 2021- No TAKE 1 Univ ers 75 mg EC 3-10 10-10 TABLET BY ity o f tablet 00:00: 00:00 [facility] [place] 00 :00 TWICE A Medical DAY Branch NEEDED Immunizations Ordered Filled Immunization Date Status Comments [facility] e Immunization Name Name Td 1997-03-27 Completed University of 00:00:00 [place] [facility] Td 1997-03-27 Completed University of 00:00:00 [facility] Td 1997-03-27 Completed University of 00:00:00 [facility] Td 1997-03-27 Completed University of 00:00:00 [facility] Td 1997-03-27 Completed University of 00:00:00 [facility] Td 1997-03-27 Completed [facility] 00:00:00 [facility] Vital Signs Vital Name Observation Time Observation Value Comments Source Body weight 2022-01-03 15:56:00 96.299 kg [facility] BMI 2022-01-03 15:56:00 36.44 kg/m2 [facility] Heart rate 2022-01-03 14:59:00 101 /min Universi ty [facility] Systolic blood 2022-01-03 14:59:00 135 mm[Hg] Univer sity of pressure [facility] Diastolic blood 2022-01-03 14:59:00 96 mm[Hg] Unive rsity of pressure [facility] Body temperature 2022-01-03 14:56:00 35.67 [facility]am [facility] Respiratory rate 2022-01-03 14:56:00 18 /min [facility] Body height 2022-01-03 14:56:00 162.6 cm [facility] Oxygen saturation in 2022-01-03 14:56:00 98 /min [facility] Arterial blood by [facility] Pulse oximetry [place] Procedures Procedure Date / Time Performed Performing Clinician [facility] e ASSIGNMENT OF BENEFITS 2022-01-03 15:52:42 Doctor Unassigned, No [facility] Encounters Start End Encounter Admission Attending Care Care Encounter Source Date/Time Date/Time Type Type Clinicians Facility Department ID 2022-03-11 2022-03-11 Refill [facility] [id number] Univers 00:00:00 00:00:00 [facility] 350.1.13.10 i ty of [place] [id number] [facility] 089 Branch 2022-01-03 2022-01-03 Manager Implementation [facility] [id number] Univers 11:45:00 12:00:00 Visit [facility] 350.1.13.10 ity of [place] [id number] [facility] 316 Branch 2022-01-03 2022-01-03 Office [facility] [id number] Univers 10:00:00 10:30:00 Visit [facility] HEALTH 350.1.13.10 i ty [place] [id number] [address] 2022-01-03 2022-01-03 Outpatient [facility] [id number] Univers 10:00:00 10:00:00 [facility] 2022-01-03 2022-01-03 Outpatient [facility] [id number] Univers 09:00:00 09:00:00 [facility] 2022-01-03 2022-01-03 Outpatient [facility] [id number] Univers 09:00:00 09:00:00 [facility] 2022-01-03 2022-01-03 Orders Doctor SENAIT [id number] Univers 00:00:00 00:00:00 Only Unassigned, YANELY 350.1.13.10 ity of [place] [facility] 4.2.7.2.686 [place] [id number] [place] [address] Branch 2021-10-15 2021-10-15 Case Checo [facility], [facility] [id number] Univers 00:00:00 00:00:00 Management Elisabeth R Y HEALTH 350.1.13.10 ity of [place] [id number] [place] [address] [place] 2021-10-15 2021-10-15 Case Checo [place], [facility] [id number] Univers 00:00:00 00:00:00 Management Elisabeth R Y HEALTH 350.1.13.10 ity of [place] [id number] [place] [address] [place] 2021-09-06 2021-09-06 Telephone Checo Arguello, [facility] [id number] Univers 00:00:00 00:00:00 Elisabeth R Y HEALTH 350.1.13.10 ity of [place] [id number] [facility] 089 Branch 2021-09-03 2021-09-03 Case Checo Arguello, UNIVERSIT [id number] Univers 00:00:00 00:00:00 Management Elisabeth R Y HEALTH 350.1.13.10 ity of [place] [id number] [place] [address] Branch 2021-09-02 2021-09-02 Silviano Arias, [facility] [id number] Univers 00:00:00 00:00:00 Management Elisabeth R Y HEALTH 350.1.13.10 ity of [place] [id number] [place] [address] Branch 2021-08-30 2021-08-30 Manager Implementation [facility] UNIVERSIT [id number] Univers 16:00:00 16:15:00 Visit Erika Zepeda HEALTH 350.1.13.10 ity of [place] [id number] [place] [address] Branch 2021-08-30 2021-08-30 Office Praveen Guaman UNIVERSIT [id number] Univers 15:00:00 15:30:00 Visit Erika Zepeda 350.1.13.10 ity of [place] [id number] [place] [address] [place] 2021-08-30 2021-08-30 Outpatient [facility] [id number] Univers 15:00:00 15:00:00 [facility] 2021-08-30 2021-08-30 Outpatient [facility] [id number] Univers 15:00:00 15:00:00 [facility] 2021-08-25 2021-08-25 Outpatient [facility] [id number] Univers 09:00:00 09:00:00 [facility] 2021-08-18 2021-08-18 Silviano Small UNIVERSIT [id number] [id number] Univers 00:00:00 00:00:00 Management Elisabeth L Y HEALTH 350.1.13.10 ity [place] [id number] [address] 2021-08-05 2021-08-05 Case Checo Arguello, UN[facility]ERS[facility] 1.2.840.114 [id number] Univers 00:00:00 00:00:00 Management Elisabeth R Y HEALTH 350.1.13.10 ity of [place] [id number] [address] 2021-08-04 2021-08-04 Case Checo Arguello, UNIVERSIT 1.2.840.114 [id number] Univers 00:00:00 00:00:00 Management Elisabeth R Y HEALTH 350.1.13.10 ity of [place] [id number] [address] 2021-07-29 2021-07-29 [facility] [id number] Univers 09:00:00 10:00:00 Visit Erika [facility] 350.1.13.10 i ty [place] [id number] [address] 2021-07-29 2021-07-29 Outpatient [facility] [id number] Univers 09:00:00 09:00:00 [facility] 2021-07-29 2021-07-29 Outpatient [facility] [id number] Univers 09:00:00 09:00:00 [facility] 2021-07-29 2021-07-29 Outpatient [facility] [id number] Univers 09:00:00 09:00:00 [facility] 2021-07-27 2021-07-27 Telephone Acosta [facility] [id number] Univers 00:00:00 00:00:00 Judith L Y HEALTH 350.1.13.10 ity of [place] [id number] [facility] 089 Branch 2021-07-26 2021-07-26 Case [place]osta, UNIVERSIT 1.2.840.114 [id number] Univers 00:00:00 00:00:00 Management Judith L Y HEALTH 350.1.13.10 ity of [place] [id number] [place] [address] [place] 2021-07-24 2021-07-24 Orders Doctor SENAIT 1.2.840.114 [id number] Univers 00:00:00 00:00:00 Only Unassigned, YANELY 350.1.13.10 ity of [place] [facility] 4.2.7.2.686 [place] [id number] [place] [address] Branch 2021-07-21 2021-07-21 Case Checo Arguello, UN[facility]ERSIT 1.2.840.114 [id number] Univers 00:00:00 00:00:00 Management Elisabeth R Y HEALTH 350.1.13.10 ity of [place] [id number] [address] 2021-07-20 2021-07-20 Case Checo Arguello, UNIVERSIT 1.2.840.114 [id number] Univers 00:00:00 00:00:00 Management Elisabeth R Y HEALTH 350.1.13.10 ity of [place] [id number] [address] 2021-07-15 2021-07-15 [facility] [id number] Univers 09:00:00 10:00:00 Visit [facility] 350.1.13.10 i ty of [place] [id number] [address] 2021-07-15 2021-07-15 Outpatient R ARMANDO [facility] [id number] Univers 09:00:00 09:00:[address] [facility] 2021-07-15 2021-07-15 Case Alessio, UNIVERSIT 1.2.840.114 [id number] Univers 00:00:00 00:00:00 Management Nechelle Y HEALTH 350.1.13.10 ity of [place] [id number] [facility] 089 Branch 2021-07-15 2021-07-15 Case Checo Arguello, UNIVERSIT 1.2.840.114 [id number] Univers 00:00:00 00:00:00 Management Elisabeth R Y HEALTH 350.1.13.10 ity of [place] [id number] [facility] 089 Branch 2021-07-14 2021-07-14 Case Geovanny, UN[facility]ERSIT 1.2.840.114 [id number] Univers 00:00:00 00:00:00 Management Elisabeth L Y HEALTH 350.1.13.10 ity of [place] [id number] [place] [address] [place] 2021-07-13 2021-07-13 Silviano Shane, [facility]ERS[facility] 1.2.840.114 [id number] Univers 00:00:00 00:00:00 Management Judith L Y HEALTH 350.1.13.10 ity of [place] [id number] [facility] 089 [place] 2021-07-12 2021-07-12 [facility] 1.2.840.114 [id number] Univers 00:00:00 00:00:00 [facility] 350.1.13.10 i ty of [place] [id number] [facility] 089 [place] 2021-07-08 2021-07-08 Manager Implementation [facility] UNIVERSIT 1.2.840.114 [id number] Univers 13:45:00 14:00:00 Visit Erika Zepeda [facility] 350.1.13.10 ity of [place] [id number] [place] [address] Branch 2021-07-08 2021-07-08 Outpatient R ARMANDO [facility] [id number] Univers 13:45:00 13:45:00 ERIKA ity of [place] [facility] 2021-07-08 2021-07-08 [facility] [id number] Univers 10:00:00 11:00:00 [facility] 350.1.13.10 i ty [place] [id number] [facility] 089 Branch 2021-07-08 2021-07-08 Outpatient [facility] [id number] Univers 10:00:00 10:00:00 [facility] 2021-07-08 2021-07-08 Outpatient [facility] [id number] Univers 10:00:00 10:00:00 [facility] 2021-07-08 2021-07-08 Orders Doctor SENAIT 1.2.840.114 [id number] Univers 00:00:00 00:00:00 Only Unassigned, YANELY 350.1.13.10 ity of [place] [facility] 4.2.7.2.686 [place] as [id number] [facility] 009 Branch 2021-07-08 2021-07-08 Case Checo Arguello, UNIVERSIT 1.2.840.114 [id number] Univers 00:00:00 00:00:00 Management Elisabeth R Y HEALTH 350.1.13.10 ity of [place] [id number] [facility] 089 Branch 2021-07-08 2021-07-08 Case Shane, [facility]ERS[facility] 1.2.840.114 [id number] Univers 00:00:00 00:00:00 Management Judith L Y HEALTH 350.1.13.10 ity of [place] [id number] [place] [address] Branch Results This patient has no known results.
--- NOTE | 2022-03-24 10:25 | RAD REPORT ---
EXAM DESCRIPTION: RAD - Chest Pa And Lat (2 Views) - 03/24/2022 10:08 am CLINICAL HISTORY: Cough COMPARISON: Chest Single View dated 01/13/2021; Chest Single View dated 11/24/2017; CHEST SINGLE VIEW dated 02/25/2010 FINDINGS: Lines: None. Lungs: No evidence of edema or pneumonia. Pleural: No significant pleural effusions or pneumothorax. Cardiac: The heart size is within normal limits. Mediastinum: Within normal limits. Bones: No acute fractures. Other: None IMPRESSION: No acute cardiopulmonary disease.
[2022-03-24 10:49] LABS: SARS-COV-2 RT PCR NEGATIVE (NEGATIVE)
--- NOTE | 2022-03-24 10:51 | ER ---
Nurse's Notes [facility] Name: Mary Orourke Age: 36 yrs Sex: Female : 1985 Arrival Date: 03/24/2022 Time: 09:12 Bed IW1 Private MD: Diagnosis: Influenza due to identified novel influenza A virus Presentation: 03/24 09:15 Chief complaint: Patient states: COUGH AND CONGESTION. Coronavirus screen: congestion, bp cough unrelated to allergies, difficulty breathing, Client presents with at least one sign or symptom that may indicate coronavirus-19. Standard/surgical mask placed on the client. Provider contacted for isolation considerations. Ebola Screen: No symptoms or risks identified at this time. Initial Sepsis Screen: Does the patient meet any 2 criteria? No. Patient's initial sepsis screen is negative. Does the patient have a suspected source of infection? No. Patient's initial sepsis screen is negative. Risk Assessment: Do you want to hurt yourself or someone else? Patient reports no desire to harm self or others. Onset of symptoms was March 23, 2022 at 15:00. 09:15 Method Of Arrival: Ambulatory bp 09:15 Acuity: SOFIA 4 bp Historical: - Allergies: 09:15 Amoxicillin; bp - Home Meds: 09:15 Unable to obtain [Active]; bp - PMHx: 09:15 unknown immune problem "starts with a P"; bp - Immunization history:: Adult Immunizations up to date. - Social history:: Smoking status: Patient denies any tobacco usage or history of. Patient uses alcohol, only on a social basis. Assessment: 11:11 General: Appears in no apparent distress. ss Vital Signs: 09:15 BP 122 / 83; Pulse 83; Resp 18; Temp 99.5; Pulse Ox 99% ; Weight 99.79 kg; Height 5 ft. bp 4 in. (162.56 cm); 09:15 Body Mass Index 37.76 (99.79 kg, 162.56 cm) bp ED Course: 09:12 Patient arrived in ED. am2 09:12 [facility] kb 09:12 Virginie Rocha MD is Attending Physician. kb 09:55 Triage completed. bp 10:10 Chest Pa And Lat (2 Views) XRAY In Process Unspecified. EDMS 11:11 No provider procedures requiring assistance completed. Patient did not have IV access ss during this emergency room visit. Administered Medications: No medications were administered Outcome: 10:51 Discharge ordered by . gill 11:11 Discharged to home ambulatory. ss 11:11 Condition: good 11:11 Discharge instructions given to patient, family, Instructed on discharge instructions, follow up and referral plans. Demonstrated understanding of instructions, follow-up care, medications. 11:11 Patient left the ED. ss Signatures: Dispatcher [employer] EDOH Tenisha Reddy, FREIGHT SERVICE INSPECTOR-C TAJ-Ellen Avila, RN RN Samantha Wong am2 Julio C Kyle, RN RN bp
--- NOTE | 2022-03-24 10:51 | EDPHYS ---
Physician Documentation [facility] Name: Mary Orourke Age: 36 yrs Sex: Female : 1985 Arrival Date: 03/24/2022 Time: 09:12 Bed IW1 Private MD: ED Physician Virginie Rocha HPI: 03/24 10:19 This 36 yrs old Female presents to ER via Ambulatory with complaints of Flu kb Symptoms. 10:19 The patient or guardian reports cough, that is intermittent, described as moderate, kb difficulty breathing, flu symptoms, arthralgias, low-grade fever, myalgias. Onset: The symptoms/episode began/occurred 4 day(s) ago. Severity of symptoms: At their worst the symptoms were moderate, in the emergency department the symptoms are unchanged. Modifying factors: The symptoms are alleviated by nothing, the symptoms are aggravated by nothing. Associated signs and symptoms: Pertinent positives: fever, rhinorrhea, Pertinent negatives: chest pain, diarrhea, ear ache, nausea, sore throat, vomiting. The patient has not experienced similar symptoms in the past. The patient has not recently seen a physician. 10:20 Pt reports flu symptoms started on Monday. Reports her children all have similar kb symptoms now. Historical: - Allergies: 09:15 Amoxicillin; bp - Home Meds: 09:15 Unable to obtain [Active]; bp - PMHx: 09:15 unknown immune problem "starts with a P"; bp - Immunization history:: Adult Immunizations up to date. - Social history:: Smoking status: Patient denies any tobacco usage or history of. Patient uses alcohol, only on a social basis. ROS: 10:18 Abdomen/GI: Negative for abdominal pain, nausea, vomiting, diarrhea, and constipation. kb 10:18 Constitutional: Positive for body aches, chills, fatigue, fever, malaise. 10:18 ENT: Positive for sinus congestion, sinus pain. 10:18 Respiratory: Positive for cough, shortness of breath, Negative for dyspnea on exertion, hemoptysis, orthopnea, pleurisy, sputum production, wheezing. 10:18 Neuro: Positive for headache. 10:18 All other systems are negative. Exam: 10:19 Constitutional: This is a well developed, well nourished patient who is awake, alert, kb and in no acute distress. Head/Face: Normocephalic, atraumatic. ENT: Moist Mucous membranes Cardiovascular: Regular rate and rhythm with a normal S1 and S2. No gallops, murmurs, or rubs. No pulse deficits. Respiratory: Respirations even and unlabored. No increased work of breathing. Talking in full sentences Abdomen/GI: Soft, non-tender. No distention Skin: Warm, dry with normal turgor. Normal color. MS/ Extremity: Pulses equal, no cyanosis. Neurovascular intact. Full, normal range of motion. Neuro: Awake and alert, GCS 15, oriented to person, place, time, and situation. Moves all extremities. Normal gait. Vital Signs: 09:15 BP 122 / 83; Pulse 83; Resp 18; Temp 99.5; Pulse Ox 99% ; Weight 99.79 kg; Height 5 ft. bp 4 in. (162.56 cm); 09:15 Body Mass Index 37.76 (99.79 kg, 162.56 cm) bp MDM: 09:16 Patient medically screened. kb 10:18 Data reviewed: vital signs, nurses notes. Data interpreted: Pulse oximetry: on room air kb is 99 %. Interpretation: normal. 10:50 Counseling: I had a detailed discussion with the patient and/or guardian regarding: the kb historical points, exam findings, and any diagnostic results supporting the discharge/admit diagnosis, lab results, the need for outpatient follow up, a family practitioner, to return to the emergency department if symptoms worsen or persist or if there are any questions or concerns that arise at home. 03/24 09:22 Order name: COVID-19/FLU A+B; Complete Time: 10:50 kb 03/24 09:22 Order name: Chest Pa And Lat (2 Views) XRAY; Complete Time: 10:25 kb Administered Medications: No medications were administered Disposition Summary: 03/24/22 10:51 Discharge Ordered Location: Home kb Condition: Stable kb Diagnosis - Influenza due to identified novel influenza A virus kb Followup: kb - With: Emergency Department - When: As needed - Reason: Worsening of condition Followup: kb - With: Private Physician - When: 2 - 3 days - Reason: Recheck today's complaints, Continuance of care, Re-evaluation by your physician Discharge Instructions: - Discharge Summary Sheet kb - Influenza, Adult, [id number] kb Forms: - Medication Reconciliation Form kb - Thank You Letter kb - Antibiotic Education kb - Work release form kb - Prescription Opioid Use kb Addendum: 03/28/2022 12:38 STAFF ATTESTATION STATEMENT: I was immediately available onsite in the emergency s d2 department for consultation in the care of this patient. I did not see or examine this patient. Virginie Rocha MD. Signatures: Dispatcher [employer] EDTenisha Fuentes FNP-C FNP-Ckb Peltier, Brian, RN RN Virginie Vasquez MD MD sd2
[2022-03-24 11:20] VITALS: BP 122/83; TEMP 99.5; O2SAT 99
== END 2022-03-24 11:11 | disposition home or self-care (01) ==
LOC: ER 08:57
DX: J10.1 Influenza due to other identified influenza virus with other respiratory manifestations (principal); Z20.822 Contact with and (suspected) exposure to COVID-19; Z88.1 Allergy status to other antibiotic agents
CPT/HCPCS: 0240U; 71046; 99283

== ENCOUNTER 2022-08-21 04:10 | Emergency (ER) | payer OTHER ==
--- OUTSIDE RECORDS SUMMARY | 2022-08-21 04:14 | XMS REPORT | Continuity of Care Document ---
:[address] [facility] t Address [address] [facility] [address] [place] [address] Care Team Providers Name Role Phone Pcp, Patient Does Not Have A Primary Care Physician [id number] Elisabeth Arias RN Attending Clinician Unavailable ERIKA ZEPEDA Attending Clinician Unavailable Erika Lua Attending Clinician Alison Mccallum MA Attending Clinician Unavailable [facility] Attending Clinician Unavailable Doctor Unassigned, [place] Attending Clinician Unavailable Praveen Oswald Attending Clinician Elisabeth Small RN Attending Clinician Unavailable Judith Shane LVN Attending Clinician Unavailable Payers Payer Name Policy Type Policy Number Effective Date Expiration Date S ource Problems Condition Condition Condition Status Onset Resolution Last Treating Co mments Source Name Details Category Date Date Treatment Clinician Date HIV HIV Disease Active Univers disease disease 14 ity of 00:00: [address] [place] [address] Branch Pyoderma Pyoderma Disease Active Unive rs gangrenosu gangrenosu 4-14 it y of m m 00:00: [address] Syphilis Syphilis Disease Active Overview: Un vito -14 Formattin ity of 00:00: g of this [place] 00 note Medical might be Branch different [...] different from the original. 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 ICD10 Diagnosis Term [employer] Other Other Disease Active Univers malaise malaise 04-29 ity of and and 00:00: [place] fatigue fatigue 00 Medical Branch Allergies, Adverse Reactions, Alerts Allergy Allergy Status Severity Reaction(s) Onset Inactive Treating Comm ents Source Name Type Date Date Clinician Amoxicil Propensi Active Swelling Univ ers kai ty to 4-14 ity of adverse 00:00: [place] reaction 00 [facility] s Branch AMOXICIL DRUG Active Hives Univers KAI INGREDI 4-14 ity of 00:00: [place] 00 Medical Branch Social History Social Habit Start Date Stop Date Quantity Comments Source Exposure to 2021-12-24 2022-01-03 Not sure [facility] SARS-CoV-2 00:00:00 09:46:00 [facility] (event) Branch Alcohol intake 2022-01-03 2022-01-03 Current [facility] 00:00:00 00:00:00 non-drinker of [facility] alcohol (finding) Artie Tobacco use and 2012-10-25 2012-10-25 Smokeless tobacco Un iversity of exposure 00:00:00 00:00:00 non-user [facility] Sex [birth year] Universit y of 00:00:00 00:00:00 [facility] Smoking Status Start Date Stop Date Source Never smoked tobacco [facility] Medications Ordered Filled Start Stop Current Ordering Indication Dosage Frequency Signature Comments Components Source Medication Medication Date Date Medication? Clinician (SIG) Name Name MARCIO 2021-03 Yes [id number] TAKE 1 Uni vers 50-200-25 2-19 TABLET BY ity o f mg tablet 00:00: MOUTH [place] 00 EVERY DAY Medical Branch [facility] 2021-03 Yes [id number] TAKE 1 Uni vers 50-200-25 2-19 TABLET BY ity o f mg tablet 00:00: MOUTH [place] 00 EVERY DAY Medical Branch BIKTARVY 2021-03 Yes [id number] TAKE 1 Uni vers 50-200-25 2-19 TABLET BY ity o f mg tablet 00:00: MOUTH [place] 00 EVERY DAY Medical Branch BIKTARVY 2021-03 Yes [id number] TAKE 1 Uni vers 50-200-25 2-19 TABLET BY ity o f mg tablet 00:00: MOUTH [place] 00 EVERY DAY Medical Branch BIKTARVY 2021-03 Yes [id number] TAKE 1 Uni vers 50-200-25 2-19 TABLET BY ity o f mg tablet 00:00: MOUTH [place] 00 EVERY DAY Medical Branch BIKTARVY 2021-03 Yes [id number] TAKE 1 Uni vers 50-200-25 2-19 TABLET BY ity o f mg tablet 00:00: MOUTH [place] 00 EVERY DAY Medical Branch bictegrav-e 0 Yes [id number] 1{tbl} Take 1 Univers mtricit-ten 6-06 tablet by ity of ofov ala 00:00: mouth [place] (BIKTARVY) 00 daily. Medical 50-200-25 Branch mg tablet bictegrav-e 2021-0 Yes [id number] 1{tbl} Take 1 Univers mtricit-ten 6-06 tablet by ity of ofov ala 00:00: mouth [place] (BIKTARVY) 00 daily. Medical 50-200-25 Branch mg tablet bictegrav-e 2021-0 Yes [id number] 1{tbl} Take 1 Univers mtricit-ten 6-06 tablet by ity of ofov ala 00:00: mouth [place] (BIKTARVY) 00 daily. Medical 50-200-25 Branch mg tablet bictegrav-e 2021-0 Yes [id number] 1{tbl} Take 1 Univers mtricit-ten 6-06 tablet by ity of ofov ala 00:00: mouth [place] (BIKTARVY) 00 daily. Medical 50-200-25 Branch mg tablet bictegrav-e 2021-0 Yes [id number] 1{tbl} Take 1 Univers mtricit-ten 6-06 tablet by ity of ofov ala 00:00: mouth [place] (BIKTARVY) 00 daily. Medical 50-200-25 Branch mg tablet bictegrav-e 2021- No [id number] 1{tbl} Take 1 Univers mtricit-ten - 12-19 tablet by it y of gabriel laurie 00:00: 00:00 mouth [place] (BIKTARVY) 00 :00 daily. Medical 50-200-25 Branch mg tablet bromphenira Yes Univer s mine-pseudo 6-05 ity of ephedrine-D 00:00: [facility] 00 Medical mg/5 mL Branch syrup bromphenira 2021- No Unive rs mine-pseudo 6-05 10-10 ity of ephedrine-D 00:00: 00:00 [facility] 00 :00 Medical mg/5 mL Branch syrup bromphenira 2021-2021- No Unive rs mine-pseudo 6-05 10-10 ity of ephedrine-D 00:00: 00:00 [facility] 00 :00 Medical mg/5 mL Branch syrup ondansetron Yes [id number] 4mg Take 1 Univers 4 mg tablet 5-05 tablet by ity of 00:00: [facility] every 8 Medical (eight) Branch hours as needed for Nausea and Vomiting (N/V). ondansetron Yes [id number] 4mg Take 1 Univers 4 mg tablet 5-05 tablet by ity of 00:00: [facility] every 8 Medical (eight) Branch hours as needed for Nausea and Vomiting (N/V). ondansetron 2021-0 2021- No [id number] 4mg Take 1 Univers 4 mg tablet 5-05 10-10 tablet by it y of 00:00: 00:00 mouth [place] 00 :00 every 8 Medical (eight) Branch hours as needed for Nausea and Vomiting (N/V). ondansetron 2021-0 2021- No [id number] 4mg Take 1 Univers 4 mg tablet 5-05 10-10 tablet by it y of 00:00: 00:00 mouth [place] 00 :00 every 8 Medical (eight) Branch hours as needed for Nausea and Vomiting (N/V). diclofenac Yes TAKE 1 Unive rs 75 mg EC 3-10 TABLET BY ity of tablet 00:00: MOUTH [place] 00 TWICE A Medical DAY Branch NEEDED diclofenac 2021- No TAKE 1 Univ ers 75 mg EC 3-10 10-10 TABLET BY ity o f tablet 00:00: 00:00 MOUTH [place] 00 :00 TWICE A Medical DAY Branch NEEDED diclofenac 2021- No TAKE 1 Univ ers 75 mg EC 3-10 10-10 TABLET BY ity o f tablet 00:00: 00:00 MOUTH [place] 00 :00 TWICE A Medical DAY Branch NEEDED Immunizations Ordered Filled Immunization Date Status Comments [facility] e Immunization Name Name Td 1997-03-27 Completed University of 00:00:00 [facility] Td 1997-03-27 Completed University of 00:00:00 [facility] Td 1997-03-27 Completed University of 00:00:00 [facility] Td 1997-03-27 Completed University of 00:00:00 [facility] Td 1997-03-27 Completed University of 00:00:00 [facility] Td 1997-03-27 Completed University of 00:00:00 [facility] TD, NOS 1997-03-27 Completed University of 00:00:00 [facility] TD, NOS 1997-03-27 Completed University of 00:00:00 [facility] TD, NOS 1997-03-27 Completed University of 00:00:00 [facility] TD, NOS 1997-03-27 Completed University of 00:00:00 [facility] TD, NOS 1997-03-27 Completed University of 00:00:00 [facility] Vital Signs Vital Name Observation Time Observation Value Comments Source Body weight 2022-01-03 15:56:00 96.299 kg [facility] BMI 2022-01-03 15:56:00 36.44 kg/m2 [facility] Systolic blood 2022-01-03 14:59:00 135 mm[Hg] Univer sity of pressure [facility] Diastolic blood 2022-01-03 14:59:00 96 mm[Hg] Unive rsity of pressure [facility] Heart rate 2022-01-03 14:59:00 101 /min [facility] Body temperature 2022-01-03 14:56:00 35.67 Tram Univ ersity of [facility] Respiratory rate 2022-01-03 14:56:00 18 /min [facility] ersity of [facility] Body height 2022-01-03 14:56:00 162.6 cm Univers ty of [facility] Oxygen saturation in 2022-01-03 14:56:00 98 /min [facility] Arterial blood by [facility] Pulse oximetry Branch Procedures Procedure Date / Time Performed Performing Clinician Enoc méndez ASSIGNMENT OF BENEFITS 2022-01-03 15:52:42 Doctor Unassigned, No [facility] Medical Branch Encounters Start End Encounter Admission Attending Care Care Encounter Source Date/Time Date/Time Type Type Clinicians Facility Department ID 2022-08-11 2022-08-11 [facility] 1.2.840.114 [id number] Univers 00:00:00 00:00:00 Elisabeth R Y HEALTH 350.1.13.10 ity [place] [id number] [address] 2022-07-04 2022-07-04 [facility] [id number] Univers 10:00:00 10:00:00 ERIKA ity of [facility] 2022-05-26 2022-05-26 [facility] 1.2.840.114 [id number] Univers 00:00:00 00:00:00 [facility] HEALTH 350.1.13.10 i ty of [place] [id number] [place] [address] Artie 2022-05-05 2022-05-05 [facility]phone [facility] [id number] Univers 00:00:00 00:00:00 Elisabeth R Y HEALTH 350.1.13.10 ity of [place] [id number] [place] [address] Branch 2022-04-25 2022-04-25 Silviano Mccallum [facility] 1.2.840.114 [id number] Univers 00:00:00 00:00:00 Management [facility] Y HEALTH 350.1.13.10 ity of [place] [id number] [place] [address] Branch 2022-03-11 2022-03-11 Refill Duane, UNIVERSIT [id number] Univers 00:00:00 00:00:00 [facility] 350.1.13.10 i ty of [place] [id number] [facility] 089 Branch 2022-01-03 2022-01-03 [employer] [facility] UNIVERSIT 1.2.840.114 [id number] Univers 11:45:00 12:00:00 Visit Duane [facility] 350.1.13.10 ity of [place] 4[place] [id number] [facility] 316 Branch 2022-01-03 2022-01-03 Office [facility] [id number] Univers 10:00:00 10:30:00 Visit [facility] 350.1.13.10 i ty of [place] [id number] [place] [address] Artie 2022-01-03 2022-01-03 Outpatient [facility] [id number] Univers 10:00:00 10:00:00 [facility] 2022-01-03 2022-01-03 Outpatient [facility] [id number] Univers 09:00:00 09:00:00 [facility] 2022-01-03 2022-01-03 Outpatient [facility] [id number] Univers 09:00:00 09:00:00 [facility] 2022-01-03 2022-01-03 Orders Doctor SENAIT 1.2.840.114 [id number] Univers 00:00:00 00:00:00 Only Unassigned, YANELY 350.1.13.10 ity of [place] [facility] 4.2.7.2.686 [place] as [phone] [facility] 009 Branch 2021-10-15 2021-10-15 Case Checo Arguello, UNIVERSIT 1.2.840.114 [id number] Univers 00:00:00 00:00:00 Management Elisabeth [facility] 350.1.13.10 ity of [place] [id number] [facility] 089 Branch 2021-10-15 2021-10-15 Case [facility]co [facility]guello[facility] 1.2.840.114 [id number] Univers 00:00:00 00:00:00 Management Elisabeth R Y HEALTH 350.1.13.10 ity of [place] [id number] [place] [address] Branch 2021-09-06 2021-09-06 Paxton Checo Arguello, [facility] 1.2.840.114 [id number] Univers 00:00:00 00:00:00 Elisabeth R Y HEALTH 350.1.13.10 ity [place] [id number] [address] 2021-09-03 2021-09-03 [facility] 1.2.840.114 [id number] Univers 00:00:00 00:00:00 Management Elisabeth R Y HEALTH 350.1.13.10 ity of [place] [id number] [place] [address] Art[place] 2021-09-02 2021-09-02 [facility] 1.2.840.114 [id number] Univers 00:00:00 00:00:00 Management Elisabeth R Y HEALTH 350.1.13.10 ity of [place] [id number] [facility] 089 Branch 2021-08-30 2021-08-30 [employer] [facility] UNIVERSIT 1.2.840.114 [id number] Univers 16:00:00 16:15:00 Visit Erika Zepeda Y HEALTH 350.1.13.10 ity of [place] [id number] [facility] 316 Branch 2021-08-30 2021-08-30 Office Praveen Guaman UNIVERSIT [id number] [id number] Univers 15:00:00 15:30:00 Visit Erika Zepeda Y HEALTH 350.1.13.10 ity of [place] [id number] [address] 2021-08-30 2021-08-30 Outpatient R [facility] [id number] Univers 15:00:00 15:00:00 [facility] 2021-08-30 2021-08-30 Outpatient R [facility] [id number] Univers 15:00:00 15:00:00 [facility] 2021-08-25 2021-08-25 Outpatient R [facility] [id number] Univers 09:00:00 09:00:00 [facility] 2021-08-18 2021-08-18 Case Antonykain, [facility] 1.2.840.114 [id number] Univers 00:00:00 00:00:00 Management Elisabeth L Y HEALTH 350.1.13.10 ity of [place] [id number] [address] 2021-08-05 2021-08-05 Case Checo Lymanco, UN[facility]ERSIT 1.2.840.114 [id number] Univers 00:00:00 00:00:00 Management Elisabeth R Y HEALTH 350.1.13.10 ity of [place] [id number] [address] 2021-08-04 2021-08-04 Case Checo Lymanco, UN[facility]ERS[facility] 1.2.840.114 [id number] Univers 00:00:00 00:00:00 Management Elisabeth R Y HEALTH 350.1.13.10 ity of [place] [id number] [address] 2021-07-29 2021-07-29 [facility], [facility] [id number] Univers 09:00:00 10:00:00 Visit Erika Y HEALTH 350.1.13.10 i ty of [place] [id number] [address] 2021-07-29 2021-07-29 Outpatient R [facility] [id number] Univers 09:00:00 09:00:00 ERIKA ansari [facility] 2021-07-29 2021-07-29 Outpatient R DUANE, [facility] [id number] Univers 09:00:00 09:00:00 ERIKA ansari [facility] 2021-07-29 2021-07-29 Outpatient R DUANE, [facility] [id number] Univers 09:00:00 09:00:00 ERIKA ansari [facility] 2021-07-27 2021-07-27 [facility]THE [facility] 1.2.840.114 [id number] Univers 00:00:00 00:00:00 Judith L Y HEALTH 350.1.13.10 ity of [place] [id number] [place] [address] Artie 2021-07-26 2021-07-26 Case [facility]THE [facility] 1.2.840.114 [id number] Univers 00:00:00 00:00:00 Management Judith L Y HEALTH 350.1.13.10 ity of [place] [id number] [place] [address] Art[place] 2021-07-24 2021-07-24 Orders Doctor SENAIT 1.2.840.114 [id number] Univers 00:00:00 00:00:00 Only Unassigned, YANELY 350.1.13.10 ity of [place] [facility] 4.2.7.2.686 [place] [id number] [place] [address] Branch 2021-07-21 2021-07-21 Case Checo Arguello, UN[facility]ERS[facility] 1.2.840.114 [id number] Univers 00:00:00 00:00:00 Management Elisabeth R Y HEALTH 350.1.13.10 ity of [place] [id number] [facility] 089 Branch 2021-07-20 2021-07-20 Case Checo Arguello, [facility] 1.2.840.114 [id number] Univers 00:00:00 00:00:00 Management Elisabeth R Y HEALTH 350.1.13.10 ity of [place] [id number] [address] 2021-07-15 2021-07-15 Office [facility], [facility] [id number] Univers 09:00:00 10:00:00 Visit Erika Y HEALTH 350.1.13.10 i ty of [place] [id number] [address] 2021-07-15 2021-07-15 [facility] [id number] Univers 09:00:00 09:00:00 ERIKA ity of [facility] 2021-07-15 2021-07-15 Case Alessio, UN[facility]ERS[facility] 1.2.840.114 [id number] Univers 00:00:00 00:00:00 Management Nechelle Y HEALTH 350.1.13.10 ity of [place] [id number] [address] 2021-07-15 2021-07-15 Case Checo Arguello, UN[facility] 1.2.840.114 [id number] Univers 00:00:00 00:00:00 Management Elisabeth R Y HEALTH 350.1.13.10 ity of [place] [id number] [address] 2021-07-14 2021-07-14 Case Antonymickycaron, [facility]ERS[facility] 1.2.840.114 [id number] Univers 00:00:00 00:00:00 Management Elisabeth L Y HEALTH 350.1.13.10 ity of [place] [id number] [address] 2021-07-13 2021-07-13 Case Shane, [facility] 1.2.840.114 [id number] Univers 00:00:00 00:00:00 Management Judith L Y HEALTH 350.1.13.10 ity of [place] [id number] [address] 2021-07-12 2021-07-12 Telephone [facility] 1.2.840.114 [id number] Univers 00:00:00 00:00:00 [facility] 350.1.13.10 i ty of [place] [id number] [facility] 089 Art[place] 2021-07-08 2021-07-08 [employer] [facility] UNIVERSIT 1.2.840.114 [id number] Univers 13:45:00 14:00:00 Visit [facility] 350.1.13.10 ity of [place] [id number] [facility] 316 Branch 2021-07-08 2021-07-08 Outpatient R [facility] [id number] Univers 13:45:00 13:45:00 [facility] 2021-07-08 2021-07-08 Office [facility] [id number] Univers 10:00:00 11:00:00 Visit [facility] 350.1.13.10 i ty of [place] [id number] [place] [address] Art[place] 2021-07-08 2021-07-08 Outpatient R [facility] [id number] Univers 10:00:00 10:00:00 [facility] 2021-07-08 2021-07-08 Outpatient [facility] [id number] Univers 10:00:00 10:00:00 [facility] 2021-07-08 2021-07-08 Orders Doctor SENAIT 1.2.840.114 [id number] Univers 00:00:00 00:00:00 Only Unassigned, YANELY 350.1.13.10 ity of [place] [facility] 4.2.7.2.686 Duy as [id number] [facility] 009 Branch 2021-07-08 2021-07-08 Case Checo Arguello, UNIVERSIT 1.2.840.114 [id number] Univers 00:00:00 00:00:00 Management Elisabeth [facility] 350.1.13.10 ity of [place] [id number] [facility] 089 Branch 2021-07-08 2021-07-08 JALEESA [place] 1.2.840.114 [id number] [facility] 00:00:00 00:00:00 Management [facility] 350.1.13.10 ity of [facility] 4.2.7.2.686 Tiburcio mendez [id number] [facility] 089 Branch Results This patient has no known results.
[2022-08-21] MEDS ORDERED: NA CHLORIDE 0.9% 1,000 ML ONE ×2 (04:43→05:37)
[2022-08-21] MEDS ORDERED: ONDANSETRON 4 MG/2 ML VIAL ONE (04:43)
[2022-08-21 05:16] LABS: Absolute Lymphocytes (CBC) 1.7 K/uL (0.7-4.9); Hematocrit 43.9 % (36.0-45.0); Lymphocytes % 14.1 % (15.3-44.8); MCV 87.9 fL (80-100); MPV 9.1 fL (7.6-11.3)
[2022-08-21 05:26] LABS: Specific Gravity 1.027 (1.005-1.030); Urine Bacteria 20-50 /HPF (<20); Urine Bilirubin NEGATIVE (Negative); Urine Blood Negative (Negative); Urine Clarity Turbid (Clear); Urine Color Yellow (Yellow); Urine Glucose NEGATIVE (Negative); Urine Mucus 1+ /HPF (None Seen); Urine Protein 1+ (Negative); Urine Urobilinogen Normal (Normal)
[2022-08-21 05:26] LABS: Albumin 4.2 g/dL (3.4-5.0); Bilirubin Total 1.2 mg/dL (0.2-1.0); Potassium 3.5 mEq/L (3.5-5.1); Protein, Total 8.6 g/dL (6.4-8.2)
[2022-08-21] MEDS ORDERED: METOCLOPRAMIDE 10 MG/2mL INJ ONE (05:30)
[2022-08-21] MEDS ORDERED: DIPHENOX/ATROP SULF 1 TAB PO ONE (05:31)
[2022-08-21] MEDS ORDERED: DICYCLOMINE HCL 20 MG/2 ML AMP IM ONE (05:31)
[2022-08-21] MEDS ORDERED: MAGNES/ALUMIN/SIMET 30ML UCUP ONE (05:36)
--- NOTE | 2022-08-21 06:02 | EDPHYS ---
Physician Documentation [facility] Name: Mary Orourke Age: 37 yrs Sex: Female : 1985 Arrival Date: 08/21/2022 Time: 04:10 Bed 7 Private MD: ED Physician Milton Jaffe HPI: 08/21 04:31 This 37 yrs old Female presents to ER via Unassigned with complaints of sp4 Nausea/Vomiting/Diarrhea. 04:31 37-year-old female presents with acute onset of nausea vomiting and diarrhea.. sp4 05:57 Patient reports that since 7 PM yesterday she developed acute multiple episode of sp4 vomiting, abdominal cramps, multiple episodes of nonbloody watery diarrhea. And a heartburn as well. Patient states she had bilateral tubal ligation 16 years ago. Patient states she suspects food poisoning.. Historical: - Allergies: 04:33 Amoxicillin; pf1 - Home Meds: 04:33 Biktarvy oral [Active]; pf1 - PMHx: 04:34 HIV positive; pf1 - PSHx: 04:33 Ligation of fallopian tube; pf1 - Immunization history:: Adult Immunizations up to date, Client reports receiving the 2nd dose of the Covid vaccine, Last tetanus immunization: < 10 years ago Flu vaccine is not up to date. - Social history:: Smoking status: Patient reports the use of cigarette tobacco products, denies chronic smoking, but will smoke occasionally, Patient uses alcohol, but reports only rare drinking. Patient/guardian denies using street drugs. - Family history:: not pertinent. ROS: 05:57 Constitutional: Negative for fever, chills, and weight loss, Eyes: Negative for injury, sp4 pain, redness, and discharge, ENT: Negative for injury, pain, and discharge, Neck: Negative for injury, pain, and swelling, Cardiovascular: Negative for chest pain, palpitations, and edema, Respiratory: Negative for shortness of breath, cough, wheezing, and pleuritic chest pain, Abdomen/GI: Positive for abdominal cramps, nausea vomiting watery diarrhea. Negative for and constipation, Back: Negative for injury and pain, : Negative for injury, bleeding, discharge, and swelling, MS/Extremity: Negative for injury and deformity, Skin: Negative for injury, rash, and discoloration, Neuro: Negative for headache, weakness, numbness, tingling, and seizure, Psych: Negative for depression, anxiety, Allergy/Immunology: Negative for hives, rash, and allergies Endocrine: Negative for neck swelling, polydipsia, polyuria, polyphagia, and weight changes Hematologic/Lymphatic: Negative for swollen nodes, abnormal bleeding, and unusual bruising Exam: 05:57 Constitutional: This is a well developed, well nourished patient who is awake, alert, sp4 ill-appearing, tachycardic, nontoxic-appearing Head/Face: Normocephalic, atraumatic. Eyes: Pupils equal round and reactive to light, extra-ocular motions intact. Lids and lashes normal. Conjunctiva and sclera are not injected. Cornea within normal limits. Periorbital areas with no swelling, redness, or edema. ENT: Nares patent. No nasal discharge, no septal abnormalities noted. Tympanic membranes are normal and external auditory canals are clear. Oropharynx with no redness, swelling, or masses, exudates, or evidence of obstruction, uvula midline. Mucous membranes moist. Neck: Trachea midline, no thyromegaly or masses palpated, and no cervical lymphadenopathy. Supple, full range of motion without nuchal rigidity, or vertebral point tenderness. No Meningismus. Chest/axilla: Normal chest wall appearance and motion. Nontender with no deformity. No lesions are appreciated. Cardiovascular: Regular rate and rhythm with a normal S1 and S2. No gallops, murmurs, or rubs. Normal PMI, no JVD. No pulse deficits. Respiratory: Lungs have equal breath sounds bilaterally, clear to auscultation and percussion. No rales, rhonchi or wheezes noted. No increased work of breathing, no retractions or nasal flaring. Abdomen/GI: Soft, non-tender, with normal bowel sounds. No distension or tympany. No guarding or rebound. No evidence of tenderness throughout. Back: No spinal tenderness. No costovertebral tenderness. Skin: Warm, dry with normal turgor. Normal color with no rashes, no lesions, and no evidence of cellulitis. MS/ Extremity: Pulses equal, no cyanosis. Neurovascular intact. Full, normal range of motion. Neuro: Awake and alert, GCS 15, oriented to person, place, time, and situation. Cranial nerves II-XII grossly intact. Motor strength 5/5 in all extremities. Sensory grossly intact. Psych: Awake, alert, with orientation to person, place and time. Behavior, mood, and affect are within normal limits Vital Signs: 04:31 BP 138 / 71; Pulse 123; Resp 18; Temp 99.1; Pulse Ox 99% on R/A; Weight 102.06 kg; pf1 Height 5 ft. 4 in. ; Pain 9/10; 05:10 BP 133 / 80; Pulse 105; Resp 18 S; Pulse Ox 99% on R/A; aa9 06:00 BP 142 / 76; Pulse 74; Resp 17 S; Pulse Ox 100% on R/A; aa9 06:46 BP 135 / 73; Pulse 73; Resp 18; Temp 98.5(O); Pulse Ox 99% on R/A; aa9 04:31 Body Mass Index 38.62 (102.06 kg, 162.56 cm) pf1 04:31 Pain Scale: Adult pf1 MDM: 04:32 Patient medically screened. sp4 05:57 Differential diagnosis: Nonspecific abd pain, gastritis, diverticulitis, viral sp4 gastroenteritis, gastroenteritis, Food poisoning. Data reviewed: vital signs, nurses notes, old medical records, lab test result(s), CBC, electrolytes, hepatic panel, urinalysis, bacteruria. Consideration of Admission/Observation Escalation of care including admission/observation considered. ED course: Patient has improved and will be given IV Rocephin and p.o. Macrobid for findings of acute UTI. Diagnosis likely food poisoning with associated UTI. Or gastroenteritis associated with UTI. 08/21 04:32 Order name: Urinalysis W/Microscopic; Complete Time: 05:54 sp4 08/21 04:32 Order name: CBC with Diff; Complete Time: 05:54 sp4 08/21 04:32 Order name: CMP; Complete Time: 05:54 sp4 08/21 04:32 Order name: Lipase; Complete Time: 05:54 sp4 08/21 05:29 Order name: Urine Culture EDMA 08/21 04:32 Order name: IV Saline Lock; Complete Time: 04:58 sp4 08/21 04:32 Order name: Labs collected and sent; Complete Time: 04:58 sp4 Administered Medications: 05:00 Drug: NS 0.9% IV 1000 ml Route: IV; Rate: 1 bolus; Site: left antecubital; aa9 06:09 Follow up: Response: No adverse reaction; IV Status: Completed infusion; IV Intake: aa9 1000ml 05:00 Drug: Ondansetron IVP 4 mg Route: IVP; Site: left antecubital; aa9 06:10 Follow up: Response: No adverse reaction aa9 05:35 Drug: metoCLOPramide IVP 10 mg Route: IVP; Site: left antecubital; aa9 06:10 Follow up: Response: No adverse reaction; Nausea is decreased aa9 05:39 Drug: Diphenoxylate-Atropine PO 2 tabs Route: PO; aa9 06:10 Follow up: Response: No adverse reaction aa9 05:39 Drug: Alum-Mag Hydroxide-Simeth PO Suspension (200 mg-200 mg-20 mg/5 mL) 30 ml Route: aa9 PO; 06:10 Follow up: Response: No adverse reaction aa9 05:39 Drug: NS 0.9% IV 1000 ml Route: IV; Rate: 1 bolus; Site: left antecubital; aa9 06:45 Follow up: Response: No adverse reaction; IV Status: Completed infusion; IV Intake: aa9 900ml 05:39 Drug: Dicyclomine IM 20 mg Route: IM; Site: left deltoid; aa9 06:10 Follow up: Response: No adverse reaction aa9 06:06 Drug: Macrobid PO 100 mg Route: PO; aa9 06:45 Follow up: Response: No adverse reaction aa9 06:06 Drug: Rocephin - Rocephin (cefTRIAXone) IVPB 1 grams Route: IVPB; Infused Over: 30 aa9 mins; Site: left antecubital; 06:45 Follow up: Response: No adverse reaction; IV Status: Completed infusion; IV Intake: aa9 100ml Disposition Summary: 08/21/22 06:01 Discharge Ordered Location: Home sp4 Problem: new sp4 Symptoms: have improved sp4 Condition: Stable sp4 Diagnosis - Noninfective gastroenteritis and colitis, unspecified sp4 - UTI/ Urinary tract infection, site not specified sp4 - Acute gastroenteritis, moderate dehydration, acute urinary tract infection with sp4 cystitis Followup: sp4 - With: Private Physician - When: 5 - 6 days - Reason: Recheck today's complaints Discharge Instructions: - Discharge Summary Sheet sp4 - Food Choices to Help Relieve Diarrhea, Adult sp4 Forms: - Prescription Opioid Use sp4 Prescriptions: - Ibuprofen 800 mg Oral Tablet - take 1 tablet by ORAL route every 8 hours As needed take with food; 30 tablet; sp4 Refills: 0, Product Selection Permitted - Zofran 4 mg Oral Tablet - take 1 tablet by ORAL route every 6 hours As needed PRN nausea; 30 tablet; sp4 Refills: 0, Product Selection Permitted - Macrobid 100 mg Oral Capsule - take 1 capsule by ORAL route every 12 hours for 10 days; 20 capsule; Refills: sp4 0, Product Selection Permitted - Levsin 0.125 mg Oral Tablet - take 1 tablet by ORAL route every 6 hours PRN stomach cramps or pain; 30 sp4 tablet; Refills: 0, Product Selection Permitted - Lomotil 2.5-0.025 mg Oral Tablet - take 1 tablet by ORAL route every 6 hours As needed PRN diarrhea; 30 tablet; sp4 Refills: 0, Product Selection Permitted Signatures: 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 pf1 Patient uses alcohol, but reports only rare drinking. Patient/guardian denies using street drugs, pf1 05:17 04:33 COMPREHENSIVE METABOLIC PANEL+C.LAB.BRZ ordered. EDMA EDMS
--- NOTE | 2022-08-21 06:02 | ER ---
Nurse's Notes [facility] Name: Mary Orourek Age: 37 yrs Sex: Female : 1985 Arrival Date: 08/21/2022 Time: 04:10 Bed 7 Private MD: Diagnosis: Noninfective gastroenteritis and colitis, unspecified;UTI/ Urinary tract infection, site not specified;Acute gastroenteritis, moderate dehydration, acute urinary tract infection with cystitis Presentation: 08/21 04:31 Chief complaint: Patient states: upper abdominal pain and epigastric pain 9 with pf1 nausea, vomiting x 12 episodes and diarrhea x 15 episodes since 1900 last night. Patient stated history of HIV+. Coronavirus screen: Vaccine status: Patient reports receiving the 2nd dose of the covid vaccine. [employer] Client denies travel out of the [place] in the last 14 days. Client presents with at least one sign or symptom that may indicate coronavirus-19. Ebola Screen: Patient negative for fever greater than or equal to 101.5 degrees Fahrenheit, and additional compatible Ebola Virus Disease symptoms. Initial Sepsis Screen: Does the patient meet any 2 criteria? HR > 90 bpm. No. Patient's initial sepsis screen is negative. Does the patient have a suspected source of infection? No. Patient's initial sepsis screen is negative. Risk Assessment: Do you want to hurt yourself or someone else? Patient reports no desire to harm self or others. 04:31 Method Of Arrival: Ambulatory pf1 04:31 Acuity: SOFIA 3 pf1 05:00 Onset of symptoms was August 21, 2022. aa9 Historical: - Allergies: 04:33 Amoxicillin; pf1 - Home Meds: 04:33 Biktarvy oral [Active]; pf1 - PMHx: 04:34 HIV positive; pf1 - PSHx: 04:33 Ligation of fallopian tube; pf1 - Immunization history:: Adult Immunizations up to date, Client reports receiving the 2nd dose of the Covid vaccine, Last tetanus immunization: < 10 years ago Flu vaccine is not up to date. - Social history:: Smoking status: Patient reports the use of cigarette tobacco products, denies chronic smoking, but will smoke occasionally, Patient uses alcohol, but reports only rare drinking. Patient/guardian denies using street drugs. - Family history:: not pertinent. Screenin:[address] [facility] ED Fall Risk Assessment (Adult) History of falling in the last 3 months, pf1 including since admission No falls in past 3 months (0 pts) Confusion or Disorientation No (0 pts) Intoxicated or Sedated No (0 pts) Impaired Gait No (0 pts) Mobility Assist Device Used No (0 pt) Altered Elimination No (0 pt) Score/Fall Risk Level 0 - 2 = Low Risk Oriented to surroundings, Maintained a safe environment, Educated pt \T\ family on fall prevention, incl call for assistance when getting out of bed, Assessed \T\ reinforced patient's understanding of fall precautions, Provided non-skid footwear, Hourly rounding (assess needs \T\ fall precautionary measures) done, Used ambulatory aids as needed (educated on \T\ assisted with), Used gait belt as appropriate. Abuse screen: Denies threats or abuse. Nutritional screening: No deficits noted. Tuberculosis screening: No symptoms or risk factors identified. Assessment: 05:09 General: Appears uncomfortable, obese, Behavior is cooperative, anxious. Pain: aa9 Complains of pain in epigastric area Pain currently is 5 out of 10 on a pain scale. Neuro: Level of Consciousness is awake, alert, obeys commands, Oriented to person, place, time, situation. Cardiovascular: Patient's skin is warm and dry. Respiratory: Airway is patent Respiratory effort is even, unlabored. GI: Abdomen is obese, Reports diarrhea, nausea, vomiting, Patient currently denies bloody stool. : No signs and/or symptoms were reported regarding the genitourinary system. 06:09 Reassessment: Patient appears in no apparent distress at this time. Patient and/or aa9 family updated on plan of care and expected duration. Pain level reassessed. Patient is alert, oriented x 3, equal unlabored respirations, skin warm/dry/pink. discharge pending fluid administration completion Patient states symptoms have improved. 06:46 Reassessment: Patient appears in no apparent distress at this time. Patient and/or aa9 family updated on plan of care and expected duration. Pain level reassessed. Patient is alert, oriented x 3, equal unlabored respirations, skin warm/dry/pink. Patient states feeling better. Patient states symptoms have improved. Vital Signs: 04:31 BP 138 / 71; Pulse 123; Resp 18; Temp 99.1; Pulse Ox 99% on R/A; Weight 102.06 kg; pf1 Height 5 ft. 4 in. ; Pain 9/10; 05:10 BP 133 / 80; Pulse 105; Resp 18 S; Pulse Ox 99% on R/A; aa9 06:00 BP 142 / 76; Pulse 74; Resp 17 S; Pulse Ox 100% on R/A; aa9 06:46 BP 135 / 73; Pulse 73; Resp 18; Temp 98.5(O); Pulse Ox 99% on R/A; aa9 04:31 Body Mass Index 38.62 (102.06 kg, 162.56 cm) pf1 04:31 Pain Scale: Adult pf1 ED Course: 04:12 Patient arrived in ED. [id number] 04:26 Sia Newman, KOFI is Primary Nurse. aa9 04:31 Milton Jaffe MD is Attending Physician. sp4 04:33 Triage completed. pf1 04:58 CBC with Diff Sent. aa9 04:58 Lipase Sent. aa9 04:58 Inserted saline lock: 22 gauge in left antecubital area, using aseptic technique. Blood aa9 collected. 05:10 Patient has correct armband on for positive identification. Placed in gown. Bed in low aa9 position. Call light in reach. Side rails up X2. Pulse ox on. NIBP on. 05:16 CBC with Diff Sent. aa9 05:16 Lipase Sent. aa9 05:18 Urinalysis W/Microscopic Sent. aa9 06:13 Urine Culture Sent. aa9 06:45 No provider procedures requiring assistance completed. IV discontinued, intact, aa9 bleeding controlled, No redness/swelling at site. Pressure dressing applied. 06:46 Splint/sling/ice applied as appropriate. aa9 Administered Medications: 05:00 Drug: NS 0.9% IV 1000 ml Route: IV; Rate: 1 bolus; Site: left antecubital; aa9 06:09 Follow up: Response: No adverse reaction; IV Status: Completed infusion; IV Intake: aa9 1000ml 05:00 Drug: Ondansetron IVP 4 mg Route: IVP; Site: left antecubital; aa9 06:10 Follow up: Response: No adverse reaction aa9 05:35 Drug: metoCLOPramide IVP 10 mg Route: IVP; Site: left antecubital; aa9 06:10 Follow up: Response: No adverse reaction; Nausea is decreased aa9 05:39 Drug: Diphenoxylate-Atropine PO 2 tabs Route: PO; aa9 06:10 Follow up: Response: No adverse reaction aa9 05:39 Drug: Alum-Mag Hydroxide-Simeth PO Suspension (200 mg-200 mg-20 mg/5 mL) 30 ml Route: aa9 PO; 06:10 Follow up: Response: No adverse reaction aa9 05:39 Drug: NS 0.9% IV 1000 ml Route: IV; Rate: 1 bolus; Site: left antecubital; aa9 06:45 Follow up: Response: No adverse reaction; IV Status: Completed infusion; IV Intake: aa9 900ml 05:39 Drug: Dicyclomine IM 20 mg Route: IM; Site: left deltoid; aa9 06:10 Follow up: Response: No adverse reaction aa9 06:06 Drug: Macrobid PO 100 mg Route: PO; aa9 06:45 Follow up: Response: No adverse reaction aa9 06:06 Drug: Rocephin - Rocephin (cefTRIAXone) IVPB 1 grams Route: IVPB; Infused Over: 30 aa9 mins; Site: left antecubital; 06:45 Follow up: Response: No adverse reaction; IV Status: Completed infusion; IV Intake: aa9 100ml Medication: 06:09 VIS not applicable for this client. aa9 Intake: 06:09 IV: 1000ml; Total: 1000ml. aa9 06:45 IV: 100ml; Total: 1100ml. aa9 06:45 IV: 900ml; Total: 2000ml. aa9 Outcome: 06:01 Discharge ordered by . sp4 06:45 Discharged to home ambulatory. aa9 06:45 Condition: stable 06:45 Discharge instructions given to patient, Instructed on discharge instructions, follow up and referral plans. medication usage, Demonstrated understanding of instructions, follow-up care, medications, Prescriptions given X 5 06:47 Patient left the ED. aa9 Signatures: Eugenia Camarillo [email or web address] Sia Newman RN RN aa9 Suzanne Ardon RN RN pf1 Milton Jaffe MD MD sp4 Corrections: (The following items were deleted from the chart) 04:39 04:34 Social history: Smoking status: Patient denies any tobacco usage or history of. pf1 Patient uses alcohol, but reports only rare drinking. Patient/guardian denies using street drugs, pf1 05:17 04:58 COMPREHENSIVE METABOLIC PANEL+C.LAB.BRZ drawn and sent. aa9 EDMS 05:17 05:16 COMPREHENSIVE METABOLIC PANEL+C.LAB.BRZ drawn and sent. aa9 EDMS 06:11 06:09 Reassessment: Patient appears in no apparent distress at this time. Patient aa9 and/or family updated on plan of care and expected duration. Pain level reassessed. Patient is alert, oriented x 3, equal unlabored respirations, skin warm/dry/pink. Patient states symptoms have improved. aa9
[2022-08-21] MEDS ORDERED: NITROFURAN MACRO 100 MG CAP PO ONE (06:08)
[2022-08-21] MEDS ORDERED: CEFTRIAXONE 1000 MG/VIAL ONE (06:08)
[2022-08-21] MEDS ORDERED: NA CHLORIDE 0.9% 100 ML ONE (06:09)
[2022-08-21 07:17] VITALS: BP 135/73; TEMP 98.5; O2SAT 99
== END 2022-08-21 06:47 | disposition home or self-care (01) ==
LOC: ER 04:10
DX: K52.9 Noninfective gastroenteritis and colitis, unspecified (principal); N39.0 Urinary tract infection, site not specified; E86.0 Dehydration; Z88.1 Allergy status to other antibiotic agents; Z21 Asymptomatic human immunodeficiency virus [HIV] infection status; F17.210 Nicotine dependence, cigarettes, uncomplicated
CPT/HCPCS: 96365; 96361; 87088; 85025; 81001; 87086; 36415; 87077; 87186; 83690; 80053; 96375; 96372; 99284; J2765; J0500; J2405; J7030 ×2; J0696